=== PATIENT | female | born 1940 | race Caucasian/White ===

== ENCOUNTER 2017-05-05 04:36 | Inpatient (IN) | payer MEDICARE ==
[2017-05-05] MEDS ORDERED: MORPHINE SULFATE 10 MG/ML INJ IV ONE ×2 (04:54→05:46)
[2017-05-05] MEDS ORDERED: ONDANSETRON HCL INJ/PF 4 MG/2 ML SDV IV ONE (04:54)
--- NOTE | 2017-05-05 04:56 | ER Document Report ---
ED Medical Screen (RME) - General Stated Complaint: BACK/FLANK PAIN Time Seen by Provider: 05/05/17 04:49 Notes: 76-year-old female, comes by EMS for chief complaint of mid upper abdominal pain and pain radiating to her back. She reports nausea, reports sharp pain, denies vomiting, fever, chest pain, shortness of breath. Denies any cardiovascular history. Denies any abdominal surgeries. She does have a history of kidney stones. Also has a history of diabetes and GERD. Symptoms started suddenly at 10 PM and have not resolved. Normal nonbloody bowel movement earlier today. Physical Exam - Abdominal Tenderness: Tender - Tenderness over the upper abdomen generally down to the mid abdomen, nonspecific, no rigidity - Back Back: No: Tender, CVA tenderness Course - Re-evaluation Re-evalutation: Patient appears only very mildly uncomfortable, she is in no distress, vital signs stable, tender over mid to upper abdomen generally, workup pending.
[2017-05-05 05:10] LABS: ABSOLUTE EOSINOPHILS # (AUTO) 0.1 10^3/uL (0.0-0.6); ABSOLUTE LYMPHOCYTES (AUTO) 0.7 10^3/uL (0.5-4.7); ABSOLUTE MONOCYTES (AUTO) 0.5 10^3/uL (0.1-1.4); ABSOLUTE NEUT (AUTO) 6.9 10^3/uL (1.7-8.2); BASOPHILS % (AUTO) 0.2 % (0-2); EOSINOPHILS % (AUTO) 1.3 % (0-6); HEMATOCRIT 37.1 % (36.0-47.0); HEMOGLOBIN 12.6 g/dL (12.0-15.5); HGB HCT DIFFERENCE 0.7; MEAN CORPUSCULAR HEMOGLOBIN 31.9 pg (27.0-33.4); MEAN CORPUSCULAR HGB CONC 33.8 g/dL (32.0-36.0); MEAN CORPUSCULAR VOLUME 94 fl (80-97); MONOCYTES % (AUTO) 5.8 % (3-13); RED BLOOD COUNT 3.94 10^6/uL (3.72-5.28); RED CELL DISTRIBUTION WIDTH 12.9 % (11.5-14.0); SEGMENTED NEUTROPHILS % (AUTO) 83.7 % (42-78); WHITE BLOOD COUNT 8.3 10^3/uL (4.0-10.5)
[2017-05-05 05:17] LABS: ALANINE AMINOTRANSFERASE 147 U/L (9-52); ALBUMIN 3.5 g/dL (3.5-5.0); ALKALINE PHOSPHATASE 76 U/L (38-126); ANION GAP 10 (5-19); ASPARTATE AMINO TRANSFERASE 219 U/L (14-36); BILIRUBIN,DIRECT 1.4 mg/dL (0.0-0.4); BILIRUBIN,TOTAL 1.7 mg/dL (0.2-1.3); BLOOD UREA NITROGEN 20 mg/dL (7-20); CALCIUM 8.8 mg/dL (8.4-10.2); CARBON DIOXIDE 25 mmol/L (22-30); CHLORIDE 106 mmol/L (98-107); CREATININE RESULT 0.59 mg/dL (0.52-1.25); GLUCOSE 279 mg/dL (75-110); POTASSIUM 4.1 mmol/L (3.6-5.0); SODIUM 141.1 mmol/L (137-145); TOTAL PROTEIN 5.8 g/dL (6.3-8.2)
[2017-05-05 05:25] LABS: LIPASE 2851.8 U/L (23-300)
[2017-05-05 05:39] LABS: APPEARANCE,URINE SLIGHTLY-CLOUDY; BILIRUBIN,URINE NEGATIVE (NEGATIVE); GLUCOSE, URINE >=500 mg/dL (NEGATIVE); KETONES,URINE NEGATIVE (NEGATIVE); LEUKOCYTE ESTERASE,URINE TRACE (NEGATIVE); NITRITE,URINE NEGATIVE (NEGATIVE); PROTEIN,URINE NEGATIVE (NEGATIVE)
[2017-05-05] MEDS ORDERED: NORMAL SALINE 1000 ML 1,000 ML IV ONE ×2 (05:46→07:31)
--- NOTE | 2017-05-05 06:32 | RADIOLOGY REPORT (SQ) ---
EXAM DESCRIPTION: CT ABD/PELVIS WITH IV ONLY COMPLETED DATE/TIME: 05/05/2017 5:56 am REASON FOR STUDY: mid/upper abd pain, flank pain COMPARISON: None. TECHNIQUE: CT scan of the abdomen and pelvis performed using helical scanning technique with dynamic intravenous contrast injection. No oral contrast. Images reviewed with lung, soft tissue, and bone windows. Reconstructed coronal and sagittal MPR images reviewed. Delayed images for evaluation of the urinary system also acquired. All images stored on PACS. All CT scanners at this facility use dose modulation, iterative reconstruction, and/or weight based d osing when appropriate to reduce radiation dose to as low as reasonably achievable (ALARA). [facility]: Dose Right [facility]: CareDose [facility]: Dose Right [facility]: Teradose 4D [facility]: Crispify CONTRAST TYPE AND DOSE: contrast/concentration: Isovue 370.00 mg/ml; Total Contrast Delivered: 100.0 ml; Total Saline Delivered: 35.0 ml RENAL FUNCTION: Creatinine 0.6 RADIATION DOSE: Up-to-date CT equipment and radiation dose reduction techniques were employed. CTDIv ol: 16.8 - 16.9 mGy. DLP: 1647 mGy-cm.. LIMITATIONS: None. FINDINGS: LOWER CHEST: No significant findings. No nodules or infiltrates. LIVER: Normal size. No masses. No dilated ducts. Mild hepatic steatosis. SPLEEN: Normal size. No focal lesions. Splenule. PANCREAS: No masses. No significant calcifications. No adjacent inflammation or peripancreatic fluid collections. Pancreatic duct not dilated. GALLBLADDER: No identified stones by CT criteria. No inflammatory changes to suggest cholecystitis. ADRENAL GLANDS: No significant masses or asymmetry. RIGHT KIDNEY AND URETER: No solid masses. No significant calcifications. No hydronephrosis or hyd roureter. LEFT KIDNEY AND URETER: No solid masses. No significant calcifications. No hydronephrosis or hydr oureter. AORTA AND VESSELS: No aneurysm. No dissection. Renal arteries, SMA, celiac without stenosis. Atheros clerosis. RETROPERITONEUM: No retroperitoneal adenopathy, hemorrhage or masses. BOWEL AND PERITONEAL CAVITY: No masses or inflammatory changes. No free fluid or peritoneal masses. APPENDIX: Surgically absent. PELVIS: No mass. No free fluid. Normal bladder. Surgically absent uterus. ABDOMINAL WALL: No masses. No hernias. BONES: Mild lower lumbar spondylosis. Mild disc desiccation. OTHER: No other significant finding. IMPRESSION: No acute findings. Mild hepatic steatosis. TECHNICAL DOCUMENTATION: JOB ID: [id number] Quality ID # [id number]: Final reports with documentation of one or more dose reduction techniques (e.g., Au tomated exposure control, adjustment of the mA and/or kV according to patient size, use of iterative reconstruction technique) 2010 [employer]- All Rights Reserved
[2017-05-05] MEDS ORDERED: FAMOTIDINE INJ/PF 20 MG/2 ML SDV IV ONE (07:32)
--- NOTE | 2017-05-05 07:44 | RADIOLOGY REPORT (SQ) ---
EXAM DESCRIPTION: U/S ABDOMEN LIMITED W/O DOP COMPLETED DATE/TIME: 05/05/2017 7:32 am REASON FOR STUDY: ruq pain pancreatitis COMPARISON: None. TECHNIQUE: Dynamic and static grayscale images acquired of the abdomen and recorded on PACS. Additio nal selected color Doppler and spectral images recorded. LIMITATIONS: None. FINDINGS: PANCREAS: No masses. Visualized pancreatic duct normal caliber. Obscured tail. LIVER: No masses. Moderate hepatic steatosis with areas of focal sparing adjacent to the gallbladder . LIVER VASCULATURE: Normal directional flow of the main portal vein and hepatic veins. GALLBLADDER: No stones. Normal wall thickness. No pericholecystic fluid. ULTRASOUND-DETECTED TREVINO'S SIGN: Negative. INTRAHEPATIC DUCTS AND COMMON DUCT: 0.7 cm diameter CBD and intrahepatic ducts normal caliber. No samantha ling defects. INFERIOR VENA CAVA: Normal flow. AORTA: No aneurysm. RIGHT KIDNEY: Normal size. Normal echogenicity. No solid or suspicious masses. No hydronephrosis. No calcifications. PERITONEAL AND RIGHT PLEURAL SPACE: No ascites or effusions. OTHER: No other significant findings. IMPRESSION: No acute findings. Moderate hepatic steatosis. TECHNICAL DOCUMENTATION: JOB ID: [id number] [employer]- All Rights Reserved
--- NOTE | 2017-05-05 08:07 | ER Document Report ---
ED General - General Chief Complaint: Back Pain Stated Complaint: BACK/FLANK PAIN Time Seen by Provider: 05/05/17 04:49 - HPI Patient complains to provider of: Back pain epigastric pain Notes: Patient coming in for less than 24 hours of epigastric pain going into her back. Patient states last night had chicken and pasta for dinner however around 10:00 at night started having epigastric and back pain. Patient states no history of similar pain. Denies any fevers or chills. States slight nausea no vomiting no diarrhea. Patient does have a history of hypertension and diabetes. Patient is on glipizide patient also has a history of chronic meloxicam use. Patient states PCP is Dr. Carrillo unknown last name. Patient upon my evaluation resting comfortably however stating she still having 4 out of 5 pain. Patient has been given morphine for her pain states relief with morphine. Denies any changes in medications patient states history of appendectomy and hysterectomy - Related Data Allergies/Adverse Reactions: latex Allergy (Verified 05/05/17 05:17) Penicillins Allergy (Verified 05/05/17 05:17) Past Medical History - Social History Smoking Status: Unknown if Ever Smoked Chew tobacco use (# tins/day): No Frequency of alcohol use: None Drug Abuse: None Family History: Reviewed & Not Pertinent Review of Systems - Review of Systems Constitutional: No symptoms reported EENT: No symptoms reported Cardiovascular: No symptoms reported Respiratory: No symptoms reported Gastrointestinal: Abdominal pain Genitourinary: No symptoms reported Female Genitourinary: No symptoms reported Musculoskeletal: No symptoms reported Skin: No symptoms reported Hematologic/Lymphatic: No symptoms reported Neurological/Psychological: No symptoms reported -: Yes All other systems reviewed and negative Physical Exam - Vital signs Vitals: Temp Pulse Resp BP Pulse Ox 98.1 F 84 16 149/53 H 96 05/05/17 04:47 05/05/17 04:47 05/05/17 04:47 05/05/17 04:47 05/05/17 04:47 Interpretation: Normal - General General appearance: Appears well, Alert - HEENT Head: Normocephalic, Atraumatic Eyes: Normal Pupils: PERRL - Respiratory Respiratory status: No respiratory distress Chest status: Nontender Breath sounds: Normal Chest palpation: Normal - Cardiovascular Rhythm: Regular Heart sounds: Normal auscultation Murmur: No - Abdominal Inspection: Normal Distension: No distension Bowel sounds: Normal Tenderness: Tender Organomegaly: No organomegaly Notes: Mild to moderate diffuse tenderness in the epigastric right upper quadrant with upper quadrant region. - Back Back: Normal, Nontender - Extremities General upper extremity: Normal inspection, Nontender, Normal color, Normal ROM , Normal temperature General lower extremity: Normal inspection, Nontender, Normal color, Normal ROM , Normal temperature, Normal weight bearing. No: Gary's sign - Neurological Neuro grossly intact: Yes Cognition: Normal Orientation: AAOx4 [place] Coma Scale Eye Opening: Spontaneous Dm Coma Scale Verbal: Oriented Dm Coma Scale Motor: Obeys Commands [place] Coma Scale Total: 15 Speech: Normal Motor strength normal: LUE, RUE, LLE, RLE Sensory: Normal - Psychological Associated symptoms: Normal affect, Normal mood - Skin Skin Temperature: Warm Skin Moisture: Dry Skin Color: Normal Course - Re-evaluation Re-evalutation: 05/05/17 08:[address] Chavez request Bharti admit. Called Bharti. will call back 05/05/17 08:06 Laboratory studies consistent with pancreatitis. CT scan although does not show any acute inflammation of the pancreas. Patient underwent ultrasound due to elevated bilirubins no signs of biliary obstruction at this time no signs of acute cholelithiasis. Upon reevaluation patient states still having pain. Will order LDH and triglycerides did patient continued to have pain will admit the patient to the hospitalist service. 05/05/17 08:15 Discussed with hospitalist will admit at this time - Vital Signs Vital signs: Temp Pulse Resp BP Pulse Ox 98.1 F 84 16 149/53 H 96 05/05/17 04:47 05/05/17 04:47 05/05/17 04:47 05/05/17 04:47 05/05/17 04:47 - Laboratory Result Diagrams: 05/05/17 04:52 05/05/17 04:52 Laboratory results interpreted by me: 05/05/17 05/05/17 05/05/17 04:52 04:52 05:12 Plt Count 145 L Seg Neutrophils % 83.7 H Lymphocytes % 9.0 L Glucose 279 H Total Bilirubin 1.7 H Direct Bilirubin 1.4 H AST 219 H ALT 147 H Total Protein 5.8 L Lipase 2851.8 H Urine Glucose (UA) >=500 H Urine Urobilinogen 2.0 H Ur Leukocyte Esterase TRACE H Discharge - Discharge Clinical Impression: Pancreatitis Qualifiers: Chronicity: acute Pancreatitis type: unspecified pancreatitis type Acute pancreatitis complication: unspecified Qualified Code(s): K85.90 - Acute pancreatitis without necrosis or infection, unspecified Condition: Good Disposition: ADMITTED OBSERVATION Admitting Provider: Hospitalist - [facility] Unit Admitted: Medical Floor
[2017-05-05] MEDS ORDERED: RINGERS SOLUTION,LACTATED 1,000 ML IV PRN (08:18)
[2017-05-05] MEDS ORDERED: DEXTROSE 40% GEL 15 GM TUBE PO PRN ×2 (08:24)
[2017-05-05] MEDS ORDERED: GLUCAGON,HUMAN RECOMB 1 MG INJ IM PRN (08:24)
[2017-05-05] MEDS ORDERED: DEXTROSE 50%-WATER 25 GM/50 ML DISP.SYRIN IV PRN ×2 (08:24)
[2017-05-05] MEDS: ONDANSETRON HCL INJ/PF 4 MG/2 ML SDV IV PRN ×3 (08:49→20:25)
[2017-05-05] MEDS: MORPHINE SULFATE 10 MG/ML INJ IV PRN ×3 (08:50→18:50)
[2017-05-05] MEDS ORDERED: PANTOPRAZOLE SODIUM 40 MG VIAL IV SCH (10:00)
[2017-05-05] MEDS: PANTOPRAZOLE SODIUM 40 MG VIAL IV SCH ×2 (10:12→22:57)
[2017-05-05] MEDS: INSULIN GLARGINE,HUM.REC.ANLOG 300 UNIT/3 ML INSULN.PEN SUBCUT SCH (14:34)
--- NOTE | 2017-05-05 15:53 | PDOC H&P ---
History of Present Illness Admission Date/PCP: 05/05/17 08:16 Patient complains of: Stomach pain since last night History of Present Illness: KIM CROSS is a 76 year old female who presented to emergency room complaining of stomach pain in band like distribution since last night. Patient states that she was watching TV when began experiencing pain. She called the emergency room around 2 AM for advice since pain has been getting progressively worse. Patient also complains of nausea. She denies a similar episode. Patient does carry a history of diabetes and take oral medications. She denies smoking. She denies history of cholecystectomy. During evaluation in emergency room lipase was elevated and our service was contacted for further management. Past Medical History Cardiac Medical History: Reports: Hypertension Pulmonary Medical History: Reports: None EENT Medical History: Reports: None Endocrine Medical History: Reports: Diabetes Mellitus Type 2 Renal/ Medical History: Reports: None Malignancy Medical History: Reports: Breast Cancer, Skin Cancer GI Medical History: Reports: None Musculoskeltal Medical History: Reports: None Psychiatric Medical History: Reports: None Hematology: Reports: None Past Surgical History Past Surgical History: Reports: Other - Breast lumpectomy Social History Information Source: Patient Lives with: Spouse/Significant other Smoking Status: Never Smoker Drugs: None Hx Prescription Drug Abuse: No - Advance Directive Resuscitation Status: Full Code Family History Family History: Malignancy Parental Family History Reviewed: Yes Children Family History Reviewed: Yes Sibling(s) Family History Reviewed.: Yes Medication/Allergy Home Medications: Albuterol Sulfate [Proair HFA] 2 puff IH Q4HP PRN 05/05/17 Aspirin [Aspirin EC] 81 mg PO DAILY 05/05/17 Glipizide [Glocotrol 5 Mg Tablet] 5 mg PO BIDBS 05/05/17 Insulin Glargine,Hum.rec.anlog [Lantus Insulin 100 Unit/1 ml 10 ml] 90 unit SUBCUT QAM 05/05/17 Insulin Lispro [Humalog Insulin 100 Unit/1 ml 3 ml Vial] 10 unit SUBCUT QAM 02/11 Meloxicam [Mobic] 7.5 mg PO DAILY 05/05/17 Omeprazole 40 mg PO QAM 05/05/17 Propranolol HCl [Inderal La] 160 mg PO DAILY 05/05/17 Ranitidine HCl [Zantac 150 mg Tablet] 150 mg PO BID 05/05/17 Simvastatin [Zocor 20 mg Tablet] 20 mg PO QHS 05/05/17 Allergies/Adverse Reactions: latex Allergy (Verified 05/05/17 05:17) Penicillins Allergy (Verified 05/05/17 05:17) Review of Systems Constitutional: ABSENT: fever(s), headache(s), weakness Eyes: ABSENT: visual disturbances Ears: ABSENT: hearing changes Cardiovascular: ABSENT: chest pain, dyspnea on exertion, edema, orthropnea Respiratory: ABSENT: cough, dyspnea Gastrointestinal: PRESENT: abdominal pain, nausea, vomiting Genitourinary: ABSENT: dysuria, hematuria Musculoskeletal: ABSENT: deformity, joint swelling Neurological: ABSENT: abnormal gait, memory loss, numbness Psychiatric: ABSENT: anxiety, depression Physical Exam Vital Signs: Temp Pulse Resp BP Pulse Ox 98.6 F 118 H 17 121/46 L 98 05/05/17 12:11 05/05/17 12:11 05/05/17 12:11 05/05/17 12:11 05/05/17 12:11 Intake & Output 05/04/17 05/05/17 05/06/17 06:59 06:59 06:59 Weight 81.647 kg General appearance: PRESENT: no acute distress, cooperative, obese Head exam: PRESENT: atraumatic, normocephalic Eye exam: PRESENT: conjunctiva pink, EOMI, PERRLA Ear exam: PRESENT: normal external ear exam Mouth exam: PRESENT: moist, neck supple Neck exam: PRESENT: full ROM. ABSENT: JVD, tenderness, thyromegaly Respiratory exam: PRESENT: clear to auscultation debbie. ABSENT: chest wall tenderness Cardiovascular exam: PRESENT: RRR. ABSENT: diastolic murmur, systolic murmur Vascular exam: PRESENT: normal capillary refill GI/Abdominal exam: PRESENT: distended, guarding, normal bowel sounds, tenderness - Epigastric Rectal exam: PRESENT: deferred Extremities exam: PRESENT: full ROM. ABSENT: joint swelling, pedal edema Musculoskeletal exam: PRESENT: ambulatory Neurological exam: PRESENT: alert, oriented to person, oriented to place, oriented to time Psychiatric exam: PRESENT: appropriate affect, normal mood Skin exam: PRESENT: intact, normal color Results Impressions: Abdomen/Pelvis CT 05/05/17 04:54 IMPRESSION: No acute findings. Mild hepatic steatosis. Abdomen Ultrasound 05/05/17 06:56 IMPRESSION: No acute findings. Moderate hepatic steatosis. Assessment & Plan - Diagnosis (1) Diabetes mellitus Qualifiers: Diabetes mellitus type: type 2 Diabetes mellitus complication status: without complication Is this a current diagnosis for this admission?: Yes Plan: Will continue Lantus and will place on lispro insulin sliding scale. Patient will be covered every 6 hours. Patient will be placed on D5 water to prevent hypoglycemic episodes. (2) HTN (hypertension) Is this a current diagnosis for this admission?: Yes Plan: She is n.p.o. we will request hydralazine IV with administration parameters for systolic blood pressure higher equal to 160 or diastolic blood pressure higher or equal to 110. (3) Pancreatitis Qualifiers: Chronicity: acute Pancreatitis type: unspecified pancreatitis type Acute pancreatitis complication: unspecified Qualified Code(s): K85.90 - Acute pancreatitis without necrosis or infection, unspecified Is this a current diagnosis for this admission?: Yes Plan: Patient presents with acute episode and of uncertain etiology. She will be placed n.p.o. Will request Protonix IV. Patient will also be evaluated through HIDA scan. Will provide pain management. - Time Time Spent: 50 to 70 Minutes Medications reviewed and adjusted accordingly: Yes Anticipated discharge: Home Within: within 72 hours - Inpatient Certification Based on my medical assessment, after consideration of the patient's comorbidities, presenting symptoms, or acuity I expect that the services needed warrant INPATIENT care.: Yes I certify that my determination is in accordance with my understanding of Medicare's requirements for reasonable and necessary INPATIENT services [42 CFR 412.3e].: Yes Medical Necessity: Need For IV Fluids, Need for Pain Control
[2017-05-05] MEDS ORDERED: DEXTROSE 5%-WATER 1000 ML 1,000 ML IV PRN (15:57)
[2017-05-05] MEDS ORDERED: ENOXAPARIN SODIUM INJ 40 MG/0.4 ML DISP.SYRIN SUBCUT ONE (17:00)
--- NOTE | 2017-05-05 17:56 | RADIOLOGY REPORT (SQ) ---
EXAM DESCRIPTION: NM HIDA SCAN COMPLETED DATE/TIME: 05/05/2017 5:28 pm REASON FOR STUDY: acute pancreatitis COMPARISON: Abdominal ultrasound 05/05/2017, CT abdomen pelvis 05/05/2017 RADIONUCLIDE AND DOSE: DOSAGE RADIONUCLIDE: 5.2 millicuries Tc99m Mebrofenin. DOSAGE MORPHINE: Not required. The route of agent administration: Intravenous TECHNIQUE: Serial imaging right upper quadrant up to 60 minutes following injection of radionuclide. Delayed 4 hour images were also obtained LIMITATIONS: None. FINDINGS: There is homogeneous liver uptake which persists throughout the 60 minutes initially. 4 hour delayed images demonstrate persistent liver uptake. These findings either represent profound hepatocellular dysfunction, or a high-grade biliary outflow obstruction possibly with distal common bile duct stone. These findings were discussed with Dr. Hay, and follow-up MRCP for evaluation of the distal comm on duct for obstruction will be performed IMPRESSION: Persistent liver uptake at 0400 hours without biliary excretion. This is a either due t o profound hepatocellular dysfunction/acute hepatitis or could be related to high-grade biliary outfl ow obstruction due to distal ductal stone or stricture. Findings were discussed with the patient's a ttending physician. MRCP is recommended for followup. TECHNICAL DOCUMENTATION: JOB ID: [id number] [employer]- All Rights Reserved
[2017-05-05] MEDS: LORAZEPAM INJ 2 MG/1 ML VIAL IV PRN (18:08)
[2017-05-05] MEDS ORDERED: PROMETHAZINE HCL 25 MG SUPP.RECT PR ONE (23:00)
[2017-05-06] MEDS ORDERED: METRONIDAZOLE 500 MG TABLET PO ONE (00:15)
[2017-05-06] MEDS ORDERED: LEVOFLOXACIN 750 MG/D5W RTU 750 MG/150 ML RTUPB IV ONE (01:00)
[2017-05-06] MEDS: ACETAMINOPHEN 325 MG TABLET PO PRN ×3 (01:55→19:01)
[2017-05-06] MEDS: ONDANSETRON HCL INJ/PF 4 MG/2 ML SDV IV PRN ×2 (01:56→07:58)
--- NOTE | 2017-05-06 02:09 | RADIOLOGY REPORT (SQ) ---
EXAM DESCRIPTION: MRI ABDOMEN WITHOUT COMPLETED DATE/TIME: 05/05/2017 8:23 pm REASON FOR STUDY: acute pancretitis COMPARISON: NM, US, CT, 05/05/2017. TECHNIQUE: Noncontrast MRCP. Source and MIP images reviewed. LIMITATIONS: None. FINDINGS: GALLBLADDER: Normal. Mild nonspecific non tensile concavity at the fundal wall. INTRAHEPATIC DUCTS: Nondilated. EXTRAHEPATIC DUCTS: Common duct is normal caliber. No dilatation of the pancreatic duct. No ductal filling defects noted. PANCREAS: Generally homogeneous, no gross mass or significant signal alteration. No surrounding infl ammatory changes or fluid. Pancreatic duct is normal. LIVER, SPLEEN, KIDNEYS, ADRENALS: Mild bilateral perinephric fat stranding. VESSELS: No evidence of aneurysm. Grossly appropriate flow voids in the major vascular structures. LUNG BASES: Grossly clear. OTHER: No other significant finding. IMPRESSION: NORMAL HEPATOBILIARY SYSTEM. NO STONES OR COMMON DUCT ABNORMALITIES. TECHNICAL DOCUMENTATION: JOB ID: [id number] [employer]- All Rights Reserved CONTRAST TYPE AND DOSE: None.
[2017-05-06] MEDS ORDERED: METRONIDAZOLE 500 MG TABLET PO SCH (06:00)
--- NOTE | 2017-05-06 08:09 | EKG REPORT ---
SEVERITY:- BORDERLINE ECG - SINUS TACHYCARDIA BORDERLINE T WAVE ABNORMALITIES : Confirmed by: Levar Abreu MD 06-May-2017 08:09:00
[2017-05-06] MEDS: MORPHINE SULFATE 10 MG/ML INJ IV PRN (08:58)
[2017-05-06] MEDS ORDERED: MORPHINE SULFATE 10 MG/ML INJ IV PRN (09:48)
[2017-05-06] MEDS: ENOXAPARIN SODIUM INJ 40 MG/0.4 ML DISP.SYRIN SUBCUT SCH (11:02)
[2017-05-06] MEDS: ERTAPENEM SODIUM 1 GM in NORMAL SALINE 50 ML IV SCH (11:03)
[2017-05-06] MEDS: PANTOPRAZOLE SODIUM 40 MG VIAL IV SCH ×2 (11:20→21:56)
[2017-05-06] MEDS: LORAZEPAM INJ 2 MG/1 ML VIAL IV PRN ×2 (11:22→19:34)
[2017-05-06] MEDS: INSULIN GLARGINE,HUM.REC.ANLOG 300 UNIT/3 ML INSULN.PEN SUBCUT SCH (12:33)
--- NOTE | 2017-05-06 13:59 | PDOC PROGRESS REPORT ---
Subjective Progress Note for:: 05/06/17 Subjective:: Patient reports feeling hungry and the pain is better. Nurse stated the patient was able to sleep the whole night and only required to be medicated around 5 AM. Silk Screen Repairer reported that patient had fever last night and patient was placed on IV antibiotic Physical Exam Vital Signs: Temp Pulse Resp BP Pulse Ox 98.1 F 104 H 12 135/51 H 100 05/06/17 04:36 05/06/17 04:36 05/06/17 04:36 05/06/17 04:36 05/06/17 04:36 Intake & Output 05/05/17 05/06/17 05/07/17 06:59 06:59 06:59 Intake Total 25 Balance 25 Weight 81.647 kg General appearance: PRESENT: no acute distress, cooperative, obese Head exam: PRESENT: atraumatic, normocephalic Eye exam: PRESENT: EOMI, PERRLA Ear exam: PRESENT: normal external ear exam Mouth exam: PRESENT: moist, neck supple Neck exam: PRESENT: full ROM. ABSENT: JVD, lymphadenopathy, tenderness Respiratory exam: PRESENT: clear to auscultation debbie Cardiovascular exam: PRESENT: RRR. ABSENT: diastolic murmur, gallop, systolic murmur Vascular exam: PRESENT: normal capillary refill GI/Abdominal exam: PRESENT: normal bowel sounds, soft, tenderness - Mild tenderness in epigastric area Extremities exam: ABSENT: joint swelling, pedal edema Musculoskeletal exam: PRESENT: full ROM Neurological exam: PRESENT: alert, oriented to person, oriented to place, oriented to time Psychiatric exam: PRESENT: appropriate affect, normal mood Results Laboratory Results: 05/06/17 05:40 Lipase 598.4 H Impressions: Abdomen MRI 05/05/17 00:00 IMPRESSION: NORMAL HEPATOBILIARY SYSTEM. NO STONES OR COMMON DUCT ABNORMALITIES. Hepatobiliary Scan Nuclear Medicine 05/05/17 00:00 IMPRESSION: Persistent liver uptake at 0400 hours without biliary excretion. This is a either due to profound hepatocellular dysfunction/acute hepatitis or could be related to high-grade biliary outflow obstruction due to distal ductal stone or stricture. Findings were discussed with the patient's attending physician. MRCP is recommended for followup. Abdomen/Pelvis CT 05/05/17 04:54 IMPRESSION: No acute findings. Mild hepatic steatosis. Abdomen Ultrasound 05/05/17 06:56 IMPRESSION: No acute findings. Moderate hepatic steatosis. Assessment & Plan - Diagnosis (1) Diabetes mellitus Qualifiers: Diabetes mellitus type: type 2 Diabetes mellitus complication status: without complication Is this a current diagnosis for this admission?: Yes Plan: Continue Lantus and lispro. Discontinue D5 water since patient will be started on clear liquids (2) HTN (hypertension) Qualifiers: Hypertension type: essential hypertension Qualified Code(s): I10 - Essential (primary) hypertension Is this a current diagnosis for this admission?: Yes Plan: Exacerbated by pain. Continue hydralazine IV (3) Pancreatitis Qualifiers: Chronicity: acute Pancreatitis type: unspecified pancreatitis type Acute pancreatitis complication: unspecified Qualified Code(s): K85.90 - Acute pancreatitis without necrosis or infection, unspecified Is this a current diagnosis for this admission?: Yes Plan: Improving. To advance to clear liquids since is very hungry. Continue with pain management. Pancreatitis may be culprit of fever. Will change to imipenem and follow-up cultures. MRCP normal. - Time Time Spent with patient: 15-24 minutes Medications reviewed and adjusted accordingly: Yes Anticipated discharge: Home Within: within 72 hours - Inpatient Certification Based on my medical assessment, after consideration of the patient's comorbidities, presenting symptoms, or acuity I expect that the services needed warrant INPATIENT care.: Yes I certify that my determination is in accordance with my understanding of Medicare's requirements for reasonable and necessary INPATIENT services [42 CFR 412.3e].: Yes Medical Necessity: Need For IV Fluids, Need for Pain Control, Need for IV Antibiotics
[2017-05-06 22:33] LABS: HEMATOCRIT 31.5 % (36.0-47.0); HEMOGLOBIN 10.8 g/dL (12.0-15.5); HGB HCT DIFFERENCE 0.9; MEAN CORPUSCULAR HEMOGLOBIN 32.4 pg (27.0-33.4); MEAN CORPUSCULAR HGB CONC 34.4 g/dL (32.0-36.0); MEAN CORPUSCULAR VOLUME 94 fl (80-97); RED BLOOD COUNT 3.35 10^6/uL (3.72-5.28); RED CELL DISTRIBUTION WIDTH 13.1 % (11.5-14.0); WHITE BLOOD COUNT 6.6 10^3/uL (4.0-10.5)
[2017-05-06 22:54] LABS: BASOPHILS % (MANUAL) 0 % (0-2); EOSINOPHILS % (MANUAL) 1 % (0-6); LYMPHOCYTES % (MANUAL) 3 % (13-45); TOTAL CELLS COUNTED 100
[2017-05-06 22:56] LABS: POIKILOCYTOSIS SLIGHT; POLYCHROMASIA SLIGHT
[2017-05-06 22:57] LABS: HYPOCHROMASIA SLIGHT; OVALOCYTES SLIGHT
[2017-05-07] MEDS: ONDANSETRON HCL INJ/PF 4 MG/2 ML SDV IV PRN ×2 (02:33→17:26)
[2017-05-07 06:55] LABS: ALANINE AMINOTRANSFERASE 255 U/L (9-52); ALKALINE PHOSPHATASE 101 U/L (38-126); ANION GAP 9 (5-19); ASPARTATE AMINO TRANSFERASE 170 U/L (14-36); BILIRUBIN,DIRECT 3.6 mg/dL (0.0-0.4); BILIRUBIN,TOTAL 4.2 mg/dL (0.2-1.3); BLOOD UREA NITROGEN 12 mg/dL (7-20); CALCIUM 8.7 mg/dL (8.4-10.2); CARBON DIOXIDE 25 mmol/L (22-30); CHLORIDE 100 mmol/L (98-107); CREATININE RESULT 0.56 mg/dL (0.52-1.25); GLUCOSE 303 mg/dL (75-110); POTASSIUM 4.3 mmol/L (3.6-5.0); SODIUM 133.8 mmol/L (137-145); TOTAL PROTEIN 5.4 g/dL (6.3-8.2)
[2017-05-07] MEDS ORDERED: OXYCODONE HCL IR 5 MG TABLET PO PRN (09:46)
[2017-05-07] MEDS: ENOXAPARIN SODIUM INJ 40 MG/0.4 ML DISP.SYRIN SUBCUT SCH (11:03)
[2017-05-07] MEDS: INSULIN GLARGINE,HUM.REC.ANLOG 300 UNIT/3 ML INSULN.PEN SUBCUT SCH (11:04)
[2017-05-07] MEDS: PANTOPRAZOLE SODIUM 40 MG VIAL IV SCH (11:04)
[2017-05-07] MEDS: ERTAPENEM SODIUM 1 GM in NORMAL SALINE 50 ML IV SCH (11:09)
[2017-05-07] MEDS: ACETAMINOPHEN 325 MG TABLET PO PRN ×2 (11:09→22:20)
[2017-05-07] MEDS: INSULIN LISPRO 100 UNIT/ML 3 ML VIAL SUBCUT PRN ×2 (13:46→22:51)
[2017-05-07] MEDS: INSULIN LISPRO 100 UNIT/ML 3 ML VIAL SUBCUT SCH (17:32)
[2017-05-07] MEDS: PROPRANOLOL HCL 40 MG TABLET PO SCH (18:21)
[2017-05-07] MEDS: LORAZEPAM INJ 2 MG/1 ML VIAL IV PRN (22:25)
[2017-05-07] MEDS: IPRATROPIUM/ALBUTEROL 0.5-2.5 MG/3 ML AMPUL NEB PRN (23:07)
[2017-05-08 04:56] LABS: ABSOLUTE EOSINOPHILS # (AUTO) 0.1 10^3/uL (0.0-0.6); ABSOLUTE LYMPHOCYTES (AUTO) 0.4 10^3/uL (0.5-4.7); ABSOLUTE NEUT (AUTO) 5.7 10^3/uL (1.7-8.2); BASOPHILS % (AUTO) 0.3 % (0-2); HEMATOCRIT 33.8 % (36.0-47.0); HEMOGLOBIN 11.6 g/dL (12.0-15.5); LYMPHOCYTES % (AUTO) 5.5 % (13-45); MEAN CORPUSCULAR HEMOGLOBIN 31.8 pg (27.0-33.4); MEAN CORPUSCULAR HGB CONC 34.4 g/dL (32.0-36.0); MEAN CORPUSCULAR VOLUME 93 fl (80-97); RED BLOOD COUNT 3.65 10^6/uL (3.72-5.28); RED CELL DISTRIBUTION WIDTH 12.8 % (11.5-14.0); SEGMENTED NEUTROPHILS % (AUTO) 79.2 % (42-78); WHITE BLOOD COUNT 7.3 10^3/uL (4.0-10.5)
[2017-05-08 05:13] LABS: ALANINE AMINOTRANSFERASE 274 U/L (9-52); ALBUMIN 3.5 g/dL (3.5-5.0); ALKALINE PHOSPHATASE 141 U/L (38-126); ANION GAP 10 (5-19); ASPARTATE AMINO TRANSFERASE 168 U/L (14-36); BILIRUBIN,DIRECT 3.4 mg/dL (0.0-0.4); BLOOD UREA NITROGEN 11 mg/dL (7-20); CALCIUM 9.1 mg/dL (8.4-10.2); CARBON DIOXIDE 33 mmol/L (22-30); CHLORIDE 98 mmol/L (98-107); CREATININE RESULT 0.61 mg/dL (0.52-1.25); GLUCOSE 191 mg/dL (75-110); LIPASE 85.4 U/L (23-300); MAGNESIUM 1.7 mg/dL (1.6-2.3); POTASSIUM 3.7 mmol/L (3.6-5.0); TOTAL PROTEIN 6.5 g/dL (6.3-8.2)
[2017-05-08] MEDS: PROPRANOLOL HCL 40 MG TABLET PO SCH (05:29)
[2017-05-08] MEDS: IPRATROPIUM/ALBUTEROL 0.5-2.5 MG/3 ML AMPUL NEB PRN ×2 (06:23→09:19)
[2017-05-08] MEDS: INSULIN LISPRO 100 UNIT/ML 3 ML VIAL SUBCUT SCH ×3 (08:14→18:28)
[2017-05-08] MEDS: LANSOPRAZOLE 30 MG TAB.RAP.DR PO SCH (08:28)
[2017-05-08] MEDS: INSULIN LISPRO 100 UNIT/ML 3 ML VIAL SUBCUT PRN ×4 (08:47→23:03)
[2017-05-08] MEDS ORDERED: METHYLPREDNISOLONE INJ 125 MG/2 ML SDV ONE (09:37)
[2017-05-08] MEDS ORDERED: ALBUTEROL SULFATE 0.042% NEB (1.25 MG/3 ML) AMPUL NEB PRN (09:47)
[2017-05-08] MEDS ORDERED: INSULIN GLARGINE,HUM.REC.ANLOG 300 UNIT/3 ML INSULN.PEN SUBCUT SCH (10:00)
[2017-05-08] MEDS ORDERED: METHYLPREDNISOLONE INJ 125 MG/2 ML SDV IV ONE (10:00)
--- NOTE | 2017-05-08 10:10 | PDOC PROGRESS REPORT ---
Subjective Progress Note for:: 05/08/17 Subjective:: Patient was admitted for acute pancreatitis on 05/05/2017. She had an abnormal HIDA scan followed by a normal MRI. This morning, when I went to go see the patient she appeared to be in some distress. This progressed over the next hour. She was ordered a stat nebulizer treatment. She seemed to improve. At this point time I think that she is having an exacerbation of asthma and not acute pulmonary edema although both are possibilities. I do not think that she is having venous thromboembolic disease. Stat chest x-ray is pending. The patient takes propranolol which could also be aggravating her asthma. In terms of her abdominal pain she states that she has no pain. She just is complaining of diffuse pain in her muscles all over the place. She also told me that she is breathing like she normally does. When asked about obstructive sleep apnea she told us that she does not wear CPAP machine. Physical Exam Vital Signs: Temp Pulse Resp BP Pulse Ox 99.6 F 116 H 28 H 157/66 H 92 05/08/17 07:15 05/08/17 09:17 05/08/17 09:17 05/08/17 07:15 05/08/17 09:17 Intake & Output 05/07/17 05/08/17 05/09/17 06:59 06:59 06:59 Intake Total 3723 3838 Output Total 1100 2195 Balance 2623 1643 Weight 92.7 kg Additional comments: The patient is noted to be an obese white female. She is in mild to moderate distress. She does have some paradoxical breathing. Her lungs are clear but she is noted to have some upper airway wheezing. Her mentation appears to be appropriate. Cranial nerves II through XII are intact and her facial appearance is normal. Her trachea is midline. Her cardiac exam demonstrates a regular rate and rhythm. She is tachycardic at 115. The abdomen is nondistended. Nontender. She does not have any guarding or rebound noted. There are no hernias or masses present. Patient's lower extremities are warm to touch. She does not have any pitting edema noted. Her skin is cool to touch with minimal livedo reticularis. Results Laboratory Results: 05/08/17 03:50 05/08/17 03:50 05/08/17 05/08/17 03:50 03:50 WBC 7.3 RBC 3.65 L Hgb 11.6 L Hct 33.8 L MCV 93 MCH 31.8 MCHC 34.4 RDW 12.8 Plt Count 110 L Seg Neutrophils % 79.2 H Lymphocytes % 5.5 L Monocytes % 14.0 H Eosinophils % 1.0 Basophils % 0.3 Absolute Neutrophils 5.7 Absolute Lymphocytes 0.4 L Absolute Monocytes 1.0 Absolute Eosinophils 0.1 Absolute Basophils 0.0 Sodium 141.0 Potassium 3.7 Chloride 98 Carbon Dioxide 33 H Anion Gap 10 BUN 11 Creatinine 0.61 Est GFR ( Amer) > 60 Est GFR (Non-Af Amer) > 60 Glucose 191 H Calcium 9.1 Magnesium 1.7 Total Bilirubin 4.0 H AST 168 H ALT 274 H Alkaline Phosphatase 141 H Total Protein 6.5 Albumin 3.5 Lipase 85.4 Impressions: Abdomen MRI 05/05/17 00:00 IMPRESSION: NORMAL HEPATOBILIARY SYSTEM. NO STONES OR COMMON DUCT ABNORMALITIES. Hepatobiliary Scan Nuclear Medicine 05/05/17 00:00 IMPRESSION: Persistent liver uptake at 0400 hours without biliary excretion. This is a either due to profound hepatocellular dysfunction/acute hepatitis or could be related to high-grade biliary outflow obstruction due to distal ductal stone or stricture. Findings were discussed with the patient's attending physician. MRCP is recommended for followup. Abdomen/Pelvis CT 05/05/17 04:54 IMPRESSION: No acute findings. Mild hepatic steatosis. Abdomen Ultrasound 05/05/17 06:56 IMPRESSION: No acute findings. Moderate hepatic steatosis. Assessment & Plan - Diagnosis (1) Diabetes mellitus Qualifiers: Diabetes mellitus type: type 2 Diabetes mellitus complication status: without complication Is this a current diagnosis for this admission?: Yes Plan: The patient is not eating. I have cut back on her Lantus. She may require readjustment secondary to the Solu-Medrol that was added today for respiratory distress. (2) HTN (hypertension) Qualifiers: Hypertension type: essential hypertension Qualified Code(s): I10 - Essential (primary) hypertension Is this a current diagnosis for this admission?: Yes Plan: Propranolol was discontinued because it is a nonselective beta-claudia and the patient appears to be having asthma with exacerbation. I will need to substitute a different agent. Patient will likely have beta-claudia withdrawal and I would elect for a beta 1 selective medication such as bisoprolol. (3) Pancreatitis Qualifiers: Chronicity: acute Pancreatitis type: unspecified pancreatitis type Acute pancreatitis complication: unspecified Qualified Code(s): K85.90 - Acute pancreatitis without necrosis or infection, unspecified Is this a current diagnosis for this admission?: Yes Plan: Currently, patient is on clears. We will make her n.p.o. for now until she improves regarding her respiratory situation. Do not think that the patient's respiratory distress is from anaphylaxis, but, I am going to stop the imipenem because I do not see an indication. (4) Transaminitis Is this a current diagnosis for this admission?: Yes Plan: Patient will need follow-up with gastroenterology. She is being evaluated for nonalcoholic fatty liver disease and nonalcoholic steatohepatitis. - Time Time Spent with patient: 35 or more minutes - Inpatient Certification Medical Necessity: Need Close Monitoring Due to Risk of Patient Decompensation - Patient is having evidence of respiratory distress. She is not stable for discharge at this time. If she worsens she will need to be transferred to the ICU., Need for Nebulizer Therapy and Monitoring of Response
--- NOTE | 2017-05-08 10:33 | RADIOLOGY REPORT (SQ) ---
EXAM DESCRIPTION: CHEST SINGLE VIEW COMPLETED DATE/TIME: 05/08/2017 10:14 am REASON FOR STUDY: Tachypnea COMPARISON: 05/05/2017 CT abdomen and pelvis. NUMBER OF VIEWS: One view. TECHNIQUE: Single frontal radiographic view of the chest acquired. LIMITATIONS: None. FINDINGS: LUNGS AND PLEURA: Interstitial appearance throughout the lungs. No abnormal gas collectio ns or focal consolidation. Correlation with CT from several days ago which includes the lung bases f ails to demonstrate any significant interstitial disease. Presumably, therefore, this is related to diffuse interstitial edema or infiltrate. Consider both cardiogenic and noncardiogenic causes for ed madhuri. MEDIASTINUM AND HILAR STRUCTURES: No masses. Contour normal. HEART AND VASCULAR STRUCTURES: Heart normal in size. Normal vasculature. BONES: No acute findings. HARDWARE: None in the chest. OTHER: No other significant finding. IMPRESSION: Interstitial pattern in the lungs suspicious for edema. TECHNICAL DOCUMENTATION: JOB ID: [id number]- All Rights Reserved
[2017-05-08] MEDS: INSULIN GLARGINE,HUM.REC.ANLOG 300 UNIT/3 ML INSULN.PEN SUBCUT SCH (10:42)
[2017-05-08] MEDS: ENOXAPARIN SODIUM INJ 40 MG/0.4 ML DISP.SYRIN SUBCUT SCH (10:42)
[2017-05-08] MEDS ORDERED: POTASSIUM CHLORIDE 10 MEQ TABLET.SA PO ONE (13:26)
[2017-05-08] MEDS ORDERED: FUROSEMIDE INJ/PF 20 MG/2 ML SDV IV ONE (13:26)
[2017-05-08] MEDS: BUDESONIDE NEB 0.5 MG/2 ML AMPUL NEB SCH (20:10)
[2017-05-08] MEDS: METHYLPREDNISOLONE INJ 40 MG/1 ML SDV IV SCH (23:03)
[2017-05-09] MEDS: METHYLPREDNISOLONE INJ 40 MG/1 ML SDV IV SCH (06:09)
[2017-05-09] MEDS: IPRATROPIUM/ALBUTEROL 0.5-2.5 MG/3 ML AMPUL NEB PRN ×2 (07:53→19:56)
[2017-05-09] MEDS: BUDESONIDE NEB 0.5 MG/2 ML AMPUL NEB SCH ×2 (07:53→19:56)
[2017-05-09] MEDS: LANSOPRAZOLE 30 MG TAB.RAP.DR PO SCH (07:55)
[2017-05-09] MEDS: INSULIN LISPRO 100 UNIT/ML 3 ML VIAL SUBCUT PRN ×4 (07:55→21:23)
[2017-05-09] MEDS: INSULIN LISPRO 100 UNIT/ML 3 ML VIAL SUBCUT SCH ×3 (09:20→17:48)
[2017-05-09] MEDS: ENOXAPARIN SODIUM INJ 40 MG/0.4 ML DISP.SYRIN SUBCUT SCH (09:21)
[2017-05-09] MEDS: INSULIN GLARGINE,HUM.REC.ANLOG 300 UNIT/3 ML INSULN.PEN SUBCUT SCH (09:21)
--- NOTE | 2017-05-09 12:42 | PDOC PROGRESS REPORT ---
Subjective Progress Note for:: 05/09/17 Subjective:: Patient was admitted for acute pancreatitis on 05/05/2017. She had an abnormal HIDA scan followed by a normal MRI. Yesterday, the patient appeared to be in respiratory distress. She was treated emergently with BiPAP and corticosteroids intravenously as well as stat bronchodilator therapy. She had very good response. Her chest x-ray showed mild pulmonary edema and she was given 20 mg of IV Lasix. Today, she states that she feels great. She slept last night with the BiPAP on and states that she got the best sleep she has ever had in her life. She feels no abdominal pain. She wants us to advance her diet and she feels that she is nearing a point where she can consider going home. She is also moving her bowels without any difficulty and urinating without any difficulty. I did speak to the patient about why she takes propranolol. She was put on this medication back in the 1980s for migraine prophylaxis. We did discuss the interaction of propranolol and aggravating some underlying asthma. Physical Exam Vital Signs: Temp Pulse Resp BP Pulse Ox 97.5 F 75 20 163/59 H 95 05/09/17 08:20 05/09/17 08:20 05/09/17 08:20 05/09/17 08:20 05/09/17 08:20 Intake & Output 05/08/17 05/09/17 05/10/17 06:59 06:59 06:59 Intake Total 3838 860 Output Total 2195 2100 Balance 1643 -1240 Weight 87.7 kg Additional comments: The patient appears to be markedly improved when compared to yesterday. She was sitting up to a chair. She did have a nasal cannula on but did not appear to be tachypneic. I did not hear any audible wheezing. Her mentation and cognition are appropriate. Her lungs today demonstrate a few minimal crackles and rales in the posterior lung arciniega at the bases only. No wheezing is present. The cardiovascular exam demonstrates a regular rate and rhythm without murmurs, gallops or rubs. The abdomen is obese but soft. Bowel sounds are noted. There is no guarding or rebound present there are no hernias or masses. The patient denies all abdominal complaints at this time. Her legs are warm to touch without edema. Skin is warm dry and intact without lesions or rashes. Results Laboratory Results: 05/08/17 03:50 05/08/17 03:50 Impressions: Abdomen MRI 05/05/17 00:00 IMPRESSION: NORMAL HEPATOBILIARY SYSTEM. NO STONES OR COMMON DUCT ABNORMALITIES. Hepatobiliary Scan Nuclear Medicine 05/05/17 00:00 IMPRESSION: Persistent liver uptake at 0400 hours without biliary excretion. This is a either due to profound hepatocellular dysfunction/acute hepatitis or could be related to high-grade biliary outflow obstruction due to distal ductal stone or stricture. Findings were discussed with the patient's attending physician. MRCP is recommended for followup. Abdomen/Pelvis CT 05/05/17 04:54 IMPRESSION: No acute findings. Mild hepatic steatosis. Abdomen Ultrasound 05/05/17 06:56 IMPRESSION: No acute findings. Moderate hepatic steatosis. Chest X-Ray 05/08/17 09:34 IMPRESSION: Interstitial pattern in the lungs suspicious for edema. Assessment & Plan - Diagnosis (1) Diabetes mellitus Qualifiers: Diabetes mellitus type: type 2 Diabetes mellitus complication status: without complication Is this a current diagnosis for this admission?: Yes Plan: Continue with basal insulin and sliding scale coverage. (2) HTN (hypertension) Qualifiers: Hypertension type: essential hypertension Qualified Code(s): I10 - Essential (primary) hypertension Is this a current diagnosis for this admission?: Yes Plan: Propranolol was discontinued because it is a nonselective beta-claudia and the patient appears to be having asthma with exacerbation. So far, there is no evidence of beta-claudia withdrawal. However, I am anticipating this. I did discuss this with the patient. I would prefer that she be on a beta 1 selective agent. Cost may be a factor as the patient currently is without a secondary healthcare plan. (3) Pancreatitis Qualifiers: Chronicity: acute Pancreatitis type: unspecified pancreatitis type Acute pancreatitis complication: unspecified Qualified Code(s): K85.90 - Acute pancreatitis without necrosis or infection, unspecified Is this a current diagnosis for this admission?: Yes Plan: Clinically resolved. Lipase was normal yesterday. Diet has been advanced to carbohydrate controlled. (4) Transaminitis Is this a current diagnosis for this admission?: Yes Plan: Patient will need follow-up with gastroenterology. She is being evaluated for nonalcoholic fatty liver disease and nonalcoholic steatohepatitis. (5) Acute respiratory distress Is this a current diagnosis for this admission?: Yes Plan: The patient was treated urgently yesterday for both acute asthma attack and for pulmonary edema. Now, she appears to be significantly improved. I will stop IV corticosteroids and place her on low-dose prednisone. She will likely benefit from a sleep study as an outpatient. - Time Time Spent with patient: 25-34 minutes - Inpatient Certification Medical Necessity: Need Close Monitoring Due to Risk of Patient Decompensation
[2017-05-09] MEDS: PREDNISONE 20 MG TABLET PO SCH (17:49)
[2017-05-10] MEDS: LORAZEPAM INJ 2 MG/1 ML VIAL IV PRN (00:28)
[2017-05-10 05:31] LABS: HEMATOCRIT 32.4 % (36.0-47.0); HEMOGLOBIN 11.3 g/dL (12.0-15.5); HGB HCT DIFFERENCE 1.5; MEAN CORPUSCULAR HEMOGLOBIN 32.5 pg (27.0-33.4); MEAN CORPUSCULAR VOLUME 93 fl (80-97); RED BLOOD COUNT 3.48 10^6/uL (3.72-5.28); RED CELL DISTRIBUTION WIDTH 12.5 % (11.5-14.0); WHITE BLOOD COUNT 10.5 10^3/uL (4.0-10.5)
[2017-05-10 05:50] LABS: BAND NEUTROPHILS % (MANUAL) 3 % (3-5); BASOPHILS % (MANUAL) 0 % (0-2); EOSINOPHILS % (MANUAL) 0 % (0-6); LYMPHOCYTES % (MANUAL) 6 % (13-45); TOTAL CELLS COUNTED 100
[2017-05-10 05:52] LABS: ALANINE AMINOTRANSFERASE 174 U/L (9-52); ALKALINE PHOSPHATASE 142 U/L (38-126); ANION GAP 10 (5-19); ASPARTATE AMINO TRANSFERASE 42 U/L (14-36); BILIRUBIN,DIRECT 1.3 mg/dL (0.0-0.4); BILIRUBIN,TOTAL 1.7 mg/dL (0.2-1.3); BLOOD UREA NITROGEN 27 mg/dL (7-20); CALCIUM 8.7 mg/dL (8.4-10.2); CARBON DIOXIDE 30 mmol/L (22-30); CHLORIDE 96 mmol/L (98-107); CREATININE RESULT 0.66 mg/dL (0.52-1.25); GLUCOSE 377 mg/dL (75-110); PHOSPHORUS 3.3 mg/dL (2.5-4.5); POTASSIUM 3.9 mmol/L (3.6-5.0); SODIUM 135.7 mmol/L (137-145); TOTAL PROTEIN 5.2 g/dL (6.3-8.2)
[2017-05-10 05:53] LABS: RBC MORPHOLOGY COMMENT NORMO-CYTIC/CHROMIC; TOXIC GRANULATION SLIGHT; TOXIC VACUOLATION PRESENT
[2017-05-10] MEDS: LANSOPRAZOLE 30 MG TAB.RAP.DR PO SCH (07:50)
[2017-05-10] MEDS: BUDESONIDE NEB 0.5 MG/2 ML AMPUL NEB SCH (08:13)
[2017-05-10] MEDS: IPRATROPIUM/ALBUTEROL 0.5-2.5 MG/3 ML AMPUL NEB PRN (08:13)
[2017-05-10] MEDS: ENOXAPARIN SODIUM INJ 40 MG/0.4 ML DISP.SYRIN SUBCUT SCH (09:22)
[2017-05-10] MEDS: INSULIN LISPRO 100 UNIT/ML 3 ML VIAL SUBCUT SCH ×2 (09:22→11:56)
[2017-05-10] MEDS: PREDNISONE 20 MG TABLET PO SCH (09:22)
[2017-05-10] MEDS: INSULIN GLARGINE,HUM.REC.ANLOG 300 UNIT/3 ML INSULN.PEN SUBCUT SCH (09:22)
[2017-05-10] MEDS: INSULIN LISPRO 100 UNIT/ML 3 ML VIAL SUBCUT PRN ×2 (09:22→11:56)
--- NOTE | 2017-05-10 11:16 | PDOC DISCHARGE SUMMARY ---
General - Admit/Disc Date/PCP Admission Date/Primary Care Provider: 05/05/17 08:16 Discharge Date: 05/10/17 - Discharge Diagnosis (1) Diabetes mellitus Is this a current diagnosis for this admission?: Yes (2) HTN (hypertension) Is this a current diagnosis for this admission?: Yes (3) Pancreatitis Is this a current diagnosis for this admission?: Yes (4) Transaminitis Is this a current diagnosis for this admission?: Yes (5) Acute respiratory distress Is this a current diagnosis for this admission?: Yes (6) Thrombocytopenia Is this a current diagnosis for this admission?: Yes - Additional Information Resuscitation Status: Full Code Discharge Diet: Diabetic Discharge Activity: Activity As Tolerated Home Medications: Albuterol Sulfate [Proair HFA] 2 puff IH Q4HP PRN 05/05/17 Aspirin [Aspirin EC] 81 mg PO DAILY 05/05/17 Glipizide [Glucotrol 5 mg Tablet] 5 mg PO BIDBS 05/05/17 Insulin Glargine,Hum.rec.anlog [Lantus Insulin 100 Unit/1 ml 10 ml] 90 unit SUBCUT QAM 05/05/17 Insulin Lispro [Humalog Insulin (Lispro) 100 unit/mL] 10 unit SUBCUT QAM Meloxicam [Mobic] 7.5 mg PO DAILY 05/05/17 Omeprazole 40 mg PO QAM 05/05/17 Ranitidine HCl [Zantac 150 mg Tablet] 150 mg PO BID 05/05/17 Budesonide [Pulmicort Neb 0.5 mg/2 ml Ampul] 0.5 mg NEB RTQ12 30 Days #60 ampul.neb 05/10/17 Carvedilol [Coreg 3.125 mg Tablet] 3.125 mg PO Q12 14 Days #30 tablet 05/10/17 Prednisone [Deltasone 20 mg Tablet] 5 mg PO BID 5 Days #10 tablet 05/10/17 History of Present Illness History of Present Illness: KIM CROSS is a 76 year old female who presented to emergency room complaining of stomach pain in band like distribution since last night. Patient states that she was watching TV when began experiencing pain. She called the emergency room around 2 AM for advice since pain has been getting progressively worse. Patient also complains of nausea. She denies a similar episode. Patient does carry a history of diabetes and take oral medications. She denies smoking. She denies history of cholecystectomy. During evaluation in emergency room lipase was elevated and our service was contacted for further management. Hospital Course Hospital Course: The patient was admitted for acute pancreatitis on 05/05/2017. She had an abnormal HIDA scan followed by a normal MRI. On Wednesday05/08/17, the patient appeared to be in respiratory distress. She was treated emergently with BiPAP and corticosteroids intravenously as well as stat bronchodilator therapy. She had a very good response. Her chest x-ray showed mild pulmonary edema and she was given 20 mg of IV Lasix. Her symptoms were resolved within 6- 8 hours. She slept with the BiPAP on and states that she got the best sleep she has ever had in her life. She may have underlying obstructive sleep apnea. It is recommended that the patient have a sleep study in the outpatient arena. When the patient developed respiratory distress I felt that was secondary to asthma with acute exacerbation as well as some underlying pulmonary edema. The patient has been using propranolol for migraine prophylaxis since the 1980s. However, she has recently been diagnosed with adult onset asthma. Due to the fact that propranolol can aggravate asthma due to its non-selective beta claudia properties I discontinued the patient's propranolol. On the day of discharge she started to develop an increased heart rate and increased blood pressure. I am concerned about beta-claudia withdrawal and I have placed her on low-dose carvedilol. She will need a timely follow-up with her primary child care attendant to determine if this medication needs to be continued or tapered upward. During this hospitalization the patient did have some thrombocytopenia likely related to her acute illness. This is improving. Currently, her platelet count is 143. The patient also has had abnormal liver function tests during this hospitalization. Her total bilirubin level, direct bilirubin level , alkaline phosphatase level, AST level and ALT levels have been elevated. However, they are coming down. They are not yet normal and they will need to be followed after discharge. The patient is going to be discharged on low-dose prednisone. This will be continued for 5 days. She has had some hyperglycemia in relation to the corticosteroids. This should resolve quickly as the dose is lowered. The patient will continue her basal insulin, mealtime coverage and sliding scale. She will also restart her sulfonylurea. Physical Exam Vital Signs: Temp Pulse Resp BP Pulse Ox 97.7 F 82 14 167/67 H 97 05/10/17 07:44 05/10/17 08:13 05/10/17 08:13 05/10/17 07:44 05/10/17 08:13 Intake & Output 05/09/17 05/10/17 05/11/17 06:59 06:59 06:59 Intake Total 860 2165 Output Total 2100 400 Balance -1240 1765 Weight 87.7 kg Additional comments: The patient has looked quite well over the last 48 hours. She is nontoxic and not in any distress. Her facial appearance is normal. Her cognition and mentation are normal. Cranial nerves II through XII are intact. Her lungs demonstrate very few crackles only in the posterior lung arciniega at the bases. Overall, the lungs are much improved. No wheezing is present today. The cardiac exam demonstrates a regular rate and rhythm without murmurs, gallops or rubs. The abdomen is soft and flat. The patient does not have guarding, rebound, tenderness present. Bowel sounds are present. The lower extremities are warm to touch without edema. The skin is warm, dry, intact without lesions or rashes. Results Laboratory Results: 05/10/17 04:24 05/10/17 04:24 05/10/17 05/10/17 04:24 04:24 WBC 10.5 RBC 3.48 L Hgb 11.3 L Hct 32.4 L MCV 93 MCH 32.5 MCHC 35.0 RDW 12.5 Plt Count 143 L Seg Neutrophils % Not Reportable Lymphocytes % Not Reportable Monocytes % Not Reportable Eosinophils % Not Reportable Basophils % Not Reportable Absolute Neutrophils Not Reportable Absolute Lymphocytes Not Reportable Absolute Monocytes Not Reportable Absolute Eosinophils Not Reportable Absolute Basophils Not Reportable Sodium 135.7 L Potassium 3.9 Chloride 96 L Carbon Dioxide 30 Anion Gap 10 BUN 27 H Creatinine 0.66 Est GFR ( Amer) > 60 Est GFR (Non-Af Amer) > 60 Glucose 377 H Calcium 8.7 Phosphorus 3.3 Magnesium 2.0 Total Bilirubin 1.7 H AST 42 H ALT 174 H Alkaline Phosphatase 142 H Total Protein 5.2 L Albumin 3.0 L Impressions: Abdomen MRI 05/05/17 00:00 IMPRESSION: NORMAL HEPATOBILIARY SYSTEM. NO STONES OR COMMON DUCT ABNORMALITIES. Hepatobiliary Scan Nuclear Medicine 05/05/17 00:00 IMPRESSION: Persistent liver uptake at 0400 hours without biliary excretion. This is a either due to profound hepatocellular dysfunction/acute hepatitis or could be related to high-grade biliary outflow obstruction due to distal ductal stone or stricture. Findings were discussed with the patient's attending physician. MRCP is recommended for followup. Abdomen/Pelvis CT 05/05/17 04:54 IMPRESSION: No acute findings. Mild hepatic steatosis. Abdomen Ultrasound 05/05/17 06:56 IMPRESSION: No acute findings. Moderate hepatic steatosis. Chest X-Ray 05/08/17 09:34 IMPRESSION: Interstitial pattern in the lungs suspicious for edema. Plan Discharge Plan: 1. Follow-up with primary child care attendant within 1 week. 2. Follow-up for liver function testing, CBC, BMP in 1-2 weeks 3. Consider further testing for sleep apnea Time Spent: Greater than 30 Minutes
[2017-05-10] MEDS ORDERED: CARVEDILOL 3.125 MG TABLET PO ONE (12:00)
[2017-05-10 12:21] VITALS: BP 144/72
[2017-05-10] MEDS ORDERED: CARVEDILOL 3.125 MG TABLET PO SCH (22:00)
== END 2017-05-10 14:00 | disposition home or self-care (01) | DRG 439 ==
LOC: ER 04:36 → OBSVTOIN 08:16 → EH 08:16 → UNDOADMOB 09:03 → 4N 11:26
PROVIDERS: ADMIT Family Medicine; ATTEND Family Medicine
PROC: 3E0F73Z Introduction of Anti-inflammatory into Respiratory Tract, Via Natural or Artificial Opening (ICD-10-PCS; 2017-05-07)
PROC: 5A09357 Assistance with Respiratory Ventilation, Less than 24 Consecutive Hours, Continuous Positive Airway Pressure (ICD-10-PCS; principal; 2017-05-08)
DX: K85.90 Acute pancreatitis without necrosis or infection, unspecified (principal); J45.901 Unspecified asthma with (acute) exacerbation; E11.9 Type 2 diabetes mellitus without complications; I10 Essential (primary) hypertension; D69.6 Thrombocytopenia, unspecified; G47.33 Obstructive sleep apnea (adult) (pediatric); K76.0 Fatty (change of) liver, not elsewhere classified; Z79.82 Long term (current) use of aspirin; Z79.4 Long term (current) use of insulin; Z79.899 Other long term (current) drug therapy; Z85.3 Personal history of malignant neoplasm of breast; Z85.828 Personal history of other malignant neoplasm of skin; Z88.0 Allergy status to penicillin; Z91.040 Latex allergy status; Z80.9 Family history of malignant neoplasm, unspecified
CPT/HCPCS: 36415; 71010; 74177; 74181; 76705; 78226; 80053; 80074; 81001; 82962; 83605; 83615; 83690; 83735; 84100; 84478; 85025; 87040; 93005; 93010; 94640; 94660; 94799; 96361; 96374; 96375; 96376; 99285; A9537; J1335; J1650; J1815; J1940; J1956; J2060; J2270; J2405; J2920; J2930; J3490; J7030; J7120; J7512; J7620; Q9969; S0028; S0164

== ENCOUNTER → 2017-05-26 | Outpatient (CLI) | payer MEDICARE ==
--- NOTE | 2017-05-26 11:54 | WOMENS IMAGING REPORT ---
EXAM DESCRIPTION: 3D DX MAMMO BILAT; U/S BREAST UNILAT LIMITED COMPLETED DATE/TIME: 05/26/2017 11:13 am; 05/26/2017 11:25 am REASON FOR STUDY: HISTORY OF BREAST CANCER; Z85.30; RIGHT BREAST PALP Z85.3 PERSONAL HISTORY OF MAL IGNANT NEOPLASM OF BREAST COMPARISON: Prior mammograms have been requested but are unavailable at this time. TECHNIQUE: Standard craniocaudal and mediolateral oblique views of each breast recorded using digita l acquisition and breast tomosynthesis. Additional spot compression MLO and CC images of the right breast and compression magnification MLO a nd CC images of the left breast. LIMITATIONS: None. FINDINGS: RIGHT BREAST MASSES: Spiculated mass in the medial breast corresponding to the palpable finding. CALCIFICATIONS: No new or suspicious calcifications. ARCHITECTURAL DISTORTION: None. DEVELOPING DENSITY: None. ASYMMETRY: None noted. OTHER: No other significant findings. LEFT BREAST MASSES: No suspicious masses. CALCIFICATIONS: No new or suspicious calcifications. ARCHITECTURAL DISTORTION: None. DEVELOPING DENSITY: None. ASYMMETRY: None noted. OTHER: No other significant finding. Read with the assistance of CAD: .[facility] - R2 C[employer]ova Version 1.3 .[facility] - R2 Cenova Version 1.3 .[facility] - R2 Cenova Version 2.4 .[facility] - R2 Cenova Version 2.4 .[facility] - R2 [employer] Professional Version 9.2 BREAST ULTRASOUND: TECHNIQUE: Static and dynamic grayscale images acquired of the right breast in the specific areas of clinical/mammographic concern. Selected color Doppler images recorded. ELASTOGRAPHY PERFORMED: No. LIMITATIONS: None. FINDINGS: MASS: Irregular spiculated solid mass in the medial breast, measuring 1.5 x 2.1 cm. Marked irregular spiculated margins. ELASTOGRAPHY CHARACTERISTICS: Not applicable. OTHER: No other significant finding. IMPRESSION: Suspicious solid spiculated mass in the medial right breast corresponding to the palpabl e finding. No worrisome mammographic findings in the left breast. BREAST DENSITY: b. There are scattered areas of fibroglandular density. BIRAD: 4 Suspicious. Biopsy should be considered. RECOMMENDATION: RECOMMENDED FOLLOW UP: Birads 4: Biopsy should be performed in the absence of clinic al contraindication. SPECIFIC INTERVENTION/IMAGING/CONSULTATION RECOMMENDED:The suspicious finding(s) amenable to US guide d core/vacuum assisted biopsy. COMMUNICATION:The imaging findings were not discussed with the patient. Her referring provider has be en notified of the findings. COMMENT: The patient has been notified of the results by letter per MQSA requirements. Additional no tification policies are in place for contacting patient with suspicious or incomplete findings. Quality ID #[id number]: The [employer] recommends an annual screening mammogram for women aged 40 years or over. This facility utilizes a reminder system to ensure that all patients receive reminder letters, and/or direct phone calls for appointments. This includes reminders for routine scr eening mammograms, diagnostic mammograms, or other Breast Imaging Interventions when appropriate. Th is patient will be placed in the appropriate reminder system. The [employer] (ACR) has developed recommendations for screening MRI of the breast s in certain patient populations, to be used in conjunction with mammography. Breast MRI surveillanc e may be appropriate for women with more than 20% lifetime risk of developing breast cancer as deter mined by genetic testing, significant family history of the disease, or history of mantle radiation f or Hodgkins Disease. ACR Practice Guidelines 2008. DBT Technology DBT is a type of tomographic mammography. With conventional mammography, overlapping breast tissue ma y make lesions difficult to detect, even with good compression. DBT uses an x-ray tube that rotates a round the breast, taking images at different angles. These images are then combined to create thin sl ices of the breast that the radiologist can view as a 3D reconstruction. The [employer]Pad unit can perform full-field digital mammograms (2D imaging); or DBT (3D imaging); or both, in a combination mode that quickly performs both the mammogram and the tomosynthesis scan while the breast is still compressed. PQRS 6045F: Fluoroscopic imaging is not utilized for breast tomosynthesis. TECHNICAL DOCUMENTATION: FINDING NUMBER: (1) ASSESSMENT: (1) JOB ID: [id number] All Rights Reserved
--- NOTE | 2017-05-26 11:54 | WOMENS IMAGING REPORT ---
EXAM DESCRIPTION: 3D DX MAMMO BILAT; U/S BREAST UNILAT LIMITED COMPLETED DATE/TIME: 05/26/2017 11:13 am; 05/26/2017 11:25 am REASON FOR STUDY: HISTORY OF BREAST CANCER; Z85.30; RIGHT BREAST PALP Z85.3 PERSONAL HISTORY OF MAL IGNANT NEOPLASM OF BREAST COMPARISON: Prior mammograms have been requested but are unavailable at this time. TECHNIQUE: Standard craniocaudal and mediolateral oblique views of each breast recorded using digita l acquisition and breast tomosynthesis. Additional spot compression MLO and CC images of the right breast and compression magnification MLO a nd CC images of the left breast. LIMITATIONS: None. FINDINGS: RIGHT BREAST MASSES: Spiculated mass in the medial breast corresponding to the palpable finding. CALCIFICATIONS: No new or suspicious calcifications. ARCHITECTURAL DISTORTION: None. DEVELOPING DENSITY: None. ASYMMETRY: None noted. OTHER: No other significant findings. LEFT BREAST MASSES: No suspicious masses. CALCIFICATIONS: No new or suspicious calcifications. ARCHITECTURAL DISTORTION: None. DEVELOPING DENSITY: None. ASYMMETRY: None noted. OTHER: No other significant finding. Read with the assistance of CAD: .[facility] - R2 Cenova Version 1.3 .[facility] - R2 Cenova Version 1.3 .[facility] - R2 Cenova Version 2.4 .[facility] - R2 Cenova Version 2.4 .[facility] - R2 [employer] Version 9.2 BREAST ULTRASOUND: TECHNIQUE: Static and dynamic grayscale images acquired of the right breast in the specific areas of clinical/mammographic concern. Selected color Doppler images recorded. ELASTOGRAPHY PERFORMED: No. LIMITATIONS: None. FINDINGS: MASS: Irregular spiculated solid mass in the medial breast, measuring 1.5 x 2.1 cm. Marked irregular spiculated margins. ELASTOGRAPHY CHARACTERISTICS: Not applicable. OTHER: No other significant finding. IMPRESSION: Suspicious solid spiculated mass in the medial right breast corresponding to the palpabl e finding. No worrisome mammographic findings in the left breast. BREAST DENSITY: b. There are scattered areas of fibroglandular density. BIRAD: 4 Suspicious. Biopsy should be considered. RECOMMENDATION: RECOMMENDED FOLLOW UP: Birads 4: Biopsy should be performed in the absence of clinic al contraindication. SPECIFIC INTERVENTION/IMAGING/CONSULTATION RECOMMENDED:The suspicious finding(s) amenable to US guide d core/vacuum assisted biopsy. COMMUNICATION:The imaging findings were not discussed with the patient. Her referring provider has be en notified of the findings. COMMENT: The patient has been notified of the results by letter per MQSA requirements. Additional no tification policies are in place for contacting patient with suspicious or incomplete findings. Quality ID #225: The [employer] recommends an annual screening mammogram for women aged 40 years or over. This facility utilizes a reminder system to ensure that all patients receive reminder letters, and/or direct phone calls for appointments. This includes reminders for routine scr eening mammograms, diagnostic mammograms, or other Breast Imaging Interventions when appropriate. Th is patient will be placed in the appropriate reminder system. The [employer] (ACR) has developed recommendations for screening MRI of the breast s in certain patient populations, to be used in conjunction with mammography. Breast MRI surveillanc e may be appropriate for women with more than 20% lifetime risk of developing breast cancer as deter mined by genetic testing, significant family history of the disease, or history of mantle radiation f or Hodgkins Disease. ACR Practice Guidelines 2008. DBT Technology DBT is a type of tomographic mammography. With conventional mammography, overlapping breast tissue ma y make lesions difficult to detect, even with good compression. DBT uses an x-ray tube that rotates a round the breast, taking images at different angles. These images are then combined to create thin sl ices of the breast that the radiologist can view as a 3D reconstruction. The [employer] unit can perform full-field digital mammograms (2D imaging); or DBT (3D imaging); or both, in a combination mode that quickly performs both the mammogram and the tomosynthesis scan while the breast is still compressed. PQRS 6045F: Fluoroscopic imaging is not utilized for breast tomosynthesis. TECHNICAL DOCUMENTATION: FINDING NUMBER: (1) ASSESSMENT: (1) JOB ID: [id number] [employer]- All Rights Reserved
== END ==
LOC: WI 05-12 10:20
PROVIDERS: ATTEND Registered Nurse
DX: Z85.3 Personal history of malignant neoplasm of breast (principal)
CPT/HCPCS: 76642; G0279; G0204; 77062; 77066

== ENCOUNTER 2017-07-07 09:08 | Day surgery (SDC) | payer MEDICARE ==
[2017-07-05 10:24] LABS: ABSOLUTE BASOPHILS # (AUTO) 0.1 10^3/uL (0.0-0.2); ABSOLUTE EOSINOPHILS # (AUTO) 0.1 10^3/uL (0.0-0.6); ABSOLUTE LYMPHOCYTES (AUTO) 0.8 10^3/uL (0.5-4.7); ABSOLUTE MONOCYTES (AUTO) 0.5 10^3/uL (0.1-1.4); ABSOLUTE NEUT (AUTO) 6.2 10^3/uL (1.7-8.2); BASOPHILS % (AUTO) 0.7 % (0-2); EOSINOPHILS % (AUTO) 1.6 % (0-6); HEMATOCRIT 40.8 % (36.0-47.0); HEMOGLOBIN 13.8 g/dL (12.0-15.5); LYMPHOCYTES % (AUTO) 10.8 % (13-45); MEAN CORPUSCULAR HEMOGLOBIN 31.2 pg (27.0-33.4); MEAN CORPUSCULAR HGB CONC 33.9 g/dL (32.0-36.0); MEAN CORPUSCULAR VOLUME 92 fl (80-97); MONOCYTES % (AUTO) 6.7 % (3-13); PLATELET COUNT 180 10^3/uL (150-450); RED BLOOD COUNT 4.43 10^6/uL (3.72-5.28); RED CELL DISTRIBUTION WIDTH 12.5 % (11.5-14.0); SEGMENTED NEUTROPHILS % (AUTO) 80.2 % (42-78); TOTAL CELLS COUNTED % (AUTO) 100 %; WHITE BLOOD COUNT 7.8 10^3/uL (4.0-10.5)
[2017-07-05 10:54] LABS: ANION GAP 10 (5-19); BLOOD UREA NITROGEN 16 mg/dL (7-20); CALCIUM 10.1 mg/dL (8.4-10.2); CARBON DIOXIDE 28 mmol/L (22-30); CHLORIDE 95 mmol/L (98-107); POTASSIUM 4.9 mmol/L (3.6-5.0); SODIUM 132.9 mmol/L (137-145)
[2017-07-05 11:11] LABS: GLUCOSE 478 mg/dL (75-110)
--- NOTE | 2017-07-05 17:07 | EKG REPORT ---
SEVERITY:- NORMAL ECG - SINUS RHYTHM : Confirmed by: Levar Abreu MD 05-Jul-2017 17:06:28
[~2017-07-07 09:08] MED LIST: CEFAZOLIN 1 GM/D5W RTU 1 GM/50 ML RTUPB IV PRN; CLINDAMYCIN 600 MG/D5W RTU 600 MG/50 ML RTUPB IV PRN; LACTATED RINGERS 1000 ML IV PRN; LIDOCAINE 0.5% INJ-PF (5 MG/ML) 50 ML SDV SUBCUT PRN; LIDOCAINE 4% TRANSPARENT DRESSING 5 GM KIT TP PRN
[2017-07-07] MEDS ORDERED: SUCCINYLCHOLINE CHLORIDE INJ 200 MG/10 ML VIAL ONE (10:54)
[2017-07-07] MEDS ORDERED: LIDOCAINE 2% INJ-PF (20 MG/ML) 2 ML AMPUL ONE (10:54)
[2017-07-07] MEDS ORDERED: ONDANSETRON HCL INJ/PF 4 MG/2 ML SDV ONE (10:54)
[2017-07-07] MEDS ORDERED: DEXAMETHASONE SOD PHOSPHATE INJ 4 MG/1 ML VIAL ONE (10:54)
[2017-07-07] MEDS ORDERED: MICROFIBRILLAR COLLAGEN 1 GM PACK ONE ×2 (11:55→13:53)
[2017-07-07] MEDS ORDERED: METHYLENE BLUE 50 MG/10 ML AMPULE ONE (11:56)
[2017-07-07] MEDS ORDERED: LIDOCAINE 2%/EPINEPHRINE INJ 20 ML VIAL ONE (11:56)
[2017-07-07] MEDS ORDERED: FENTANYL CITRATE INJ/PF 100 MCG/2 ML AMPUL ONE ×2 (12:06→14:54)
[2017-07-07] MEDS ORDERED: ACETAMINOPHEN 100 ML IV ONE (12:07)
[2017-07-07] MEDS ORDERED: PROPOFOL INJ 200 MG/20 ML VIAL IV ONE (12:07)
[2017-07-07] MEDS ORDERED: MIDAZOLAM 2 MG/2 ML INJ ONE (12:07)
[2017-07-07] MEDS ORDERED: MEPERIDINE HCL/PF INJ 25 MG/1 ML DISP.SYRIN IV PRN (12:53)
[2017-07-07] MEDS ORDERED: DIPHENHYDRAMINE HCL 50 MG/ML VIAL IV PRN (12:53)
[2017-07-07] MEDS ORDERED: MORPHINE SULFATE 10 MG/ML INJ IV PRN (12:53)
[2017-07-07] MEDS ORDERED: FENTANYL CITRATE INJ/PF 100 MCG/2 ML AMPUL IV PRN ×3 (12:53)
[2017-07-07] MEDS ORDERED: PROMETHAZINE HCL INJ 25 MG/1 ML VIAL IV PRN (12:53)
--- NOTE | 2017-07-07 13:17 | RADIOLOGY REPORT (SQ) ---
EXAM DESCRIPTION: NM LYMPHATICS/LYMPH GLANDS COMPLETED DATE/TIME: 07/07/2017 11:44 am REASON FOR STUDY: RT BREAST CA C50.911 MALIGNANT NEOPLASM OF UNSP SITE OF RIGHT FEMALE VI COMPARISON: None. RADIONUCLIDE AND DOSE: 561 microcuries TC-99mtilmanocept - [employer]. The route of agent administration: Subcutaneous in the skin. TECHNIQUE: The skin of the right breast was prepped in sterile fashion. The radiopharmaceutical was administered in equally divided doses in the periareolar breast. LIMITATIONS: None. FINDINGS: Images demonstrate activity at the injection site. Migration of activity towards the righ t axilla. [place] node marked. IMPRESSION: ADMINISTRATION OF RADIOPHARMACEUTICAL FOR SENTINEL LYMPH NODE EVALUATION. TECHNICAL DOCUMENTATION: JOB ID: [id number] [employer]- All Rights Reserved
--- NOTE | 2017-07-07 14:10 | Operative Report ---
Operative Report DATE OF SURGERY: 07/07/17 PREOPERATIVE DIAGNOSIS: 1. 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 2. History of left breast carcinoma, status post left breast lumpectomy POSTOPERATIVE DIAGNOSIS: Same OPERATION: 1. Dual mapping sentinel lymph node biopsy right axilla 2. 2. Ultrasound directed right breast lumpectomy. 3. Right breast lumpectomy cavity shave margin excision 5 SURGEON: EVERETT MANNING RESIDENTIAL SALES EXECUTIVE: PAM MENDOZA ANESTHESIA: GA TISSUE REMOVED OR ALTERED: Multiple specimens see below COMPLICATIONS: None ESTIMATED BLOOD LOSS: Scant INTRAOPERATIVE FINDINGS: See below PROCEDURE: The patient was seen in the preop holding area with her right breast was marked. She previously underwent right breast lymphoscintigraphy with successful sentinel lymph node mapping to the right axilla. She was taken to the operating room where general anesthesia was induced. Right arm was abducted , right breast exposed, and as part of the dual mapping technique, approximately 3 cc of pulling blue, sterile, was injected into the right breast , areolar border, o'clock position intradermally with the right breast massaged for 5 minutes. The right breast and axilla were then prepped and draped in sterile fashion. Surgical plan and surgical timeout repeated We proceeded with the right axillary sentinel lymph node biopsy first. Increased activity was detected in the low axilla. Skin was anesthetized with quarter percent Marcaine, a 2 cm incision was made the skin, and using neoprobe hemostats and S shaped retractors, sentinel lymph node harvest was undertaken. Therefore sentinel lymph node identified level 1, was hot but not blue with an in vivo count of 2223 and an ex vivo count of 891. Adjacent to this was a blue hot node with an in vivo count of 34,676 and an ex vivo count of 28,362. Ground counts in the axilla were minimal. We felt that the sentinel lymph node biopsy portion of the operation was complete We now turned our attention to the right breast. The right breast was scanned with the variable frequency linear transducer. Findings were significant for a 2-1/2+ cm constantly oriented right breast cancer, o'clock position breast 11 cm from the nipple. And was anesthetized with quarter percent Marcaine, and a thin ellipse of skin was excised at the site of the planned lumpectomy in conjunction with the overlying breast parenchyma. Incision was approximately 5 cm in length. Garnica superior inferior medial and lateral skin flaps and took the level of dissection all the way to the chest wall with the pectoralis major fascia with the specimen. The specimen was removed, oriented with a long suture in the lateral position, short suture in the superior position. It was sent to pathology labeled as right breast lumpectomy pending right breast invasive carcinoma and sent for permanent analysis As planned, we now proceeded with the shave margin. This was performed using electrocautery, pickups and gentle retraction. The margins of the lumpectomy cavity included the barrier edge of the cavity, medial edge, lateral edge, inferior edge, and the posterior edge. The posterior margin consisted of some elements of the pectoralis muscle. Each specimen was packaged separately, and oriented with a silk suture placed on the exterior or true final margin. Specimen was placed on a piece of Telfa, and submitted in its own container for permanent analysis. We returned to both incision check for bleeding there was none. Avitene slurry was placed into the recesses of both wounds, large Andrea drain placed in the right breast through the inframammary fold secured to skin with 2-0 Prolene suture. Wounds closed with 2-0 Vicryl Dermabond glue applied. Patient tolerated the procedure well, extubated, taken recovery room stable condition.
--- NOTE | 2017-07-07 14:14 | PDOC DISCHARGE SUMMARY ---
Discharge Summary (SDC) - Discharge Final Diagnosis: Right breast cancer Date of Surgery: 07/07/17 Discharge Date: 07/07/17 Condition: Stable Treatment or Instructions: [facility] [address] [place] [id number] Care Instructions Following Your Mastectomy/Lumpectomy Activities: Resume normal activities when you feel comfortable. It is best to remain as active as possible to speed your recovery. It is common to experience some fatigue after surgery and you may find that short naps are helpful. Avoid strenuous activity such as weight lifting, tennis, etc at your surgical site for two weeks. Perform gentle arm exercises daily and do not favor your operative arm to due increased risk of mobility issues postoperatively. No driving for 7 days after surgery. Do not drive if you are taking pain medication other than Tylenol or Ibuprofen. No swimming, tub baths or soaking in a hot tub for 4 weeks. There are no dietary restrictions. Do not smoke as this impairs wound healing. Surgical Site care: You may shower in 48 hours. Leave skin glue intact. Do not scrub the incision. Pat the area dry with a towel. You do not need to recover the wound although some patients find that they feel more comfortable using a light dressing for a few days to absorb any minimal drainage which may occur. Many patients also find that keeping a dressing around the drain exit site is helpful to absorb any drainage which may leak around the tubing. If you use a dressing in this manner change it at least every day. Do not use heating pad or apply an ice pack to the operative site. You may apply deodorant if you are careful to avoid getting it on the wound itself. Empty the bulbs attached to the drain every 12 hours and measure the fluid output separately from each drain. Please also strip each drain each time you empty it to prevent clogging. Keep a record of the output and bring this record with you each time you come to the office for postoperative care. A drain is ready to be removed when its output is 30 mL per 24 hours per drain for 2 consecutive days. Please call the office to inform our staff that you need to come in for drain removal. Medications: Take Toradol 10mg on tablet every 4-6 hours as needed for pain. You may also take Tylenol in rotation with the Toradol. Do not exceed 4mg of Tylenol a day. Resume all of your normal prescription medications after your surgery unless instructed otherwise. You may experience constipation after surgery while taking pain medications. If using a narcotic on a regular basis, take a stool softener such as Colace twice a day. It is helpful to stay hydrated by drinking lots of fluids. Walking is also helpful and is good exercise after surgery. If you need extra help, use Milk of Magnesia according to the directions on the package. Follow-up: Call our office at to make a follow-up appointment in 10-14 days. Your doctor will call to discuss the pathology report with you as soon as it is available. Concerns: If you had a sentinel lymph node biopsy with your mastectomy, your urine may have a greenish discoloration. This is normal and will resolve as the blue dye slowly leaves your system. If you notice significant leakage around the drains , this is not normal. The drains may be clogged. Please call our office to come in immediately for the drains to be checked. Some bruising may occur and will go away over time. If you have a fever of 101.5 or greater, chills, redness at the incision site, excessive drainage from your wound or severe pain not relieved by pain medication, call your doctor. A physician is available 24 hours a day 7 days a week in addition to regular office hours. If problems arise after normal office hours please call the hospital at . Please call if you have any questions or concerns. Prescriptions: Ketorolac Tromethamine [Toradol 10 mg Tablet] 10 mg PO Q6HP PRN #25 tablet PRN Reason: Referrals: ARASH SAMUELS NP [Primary Care Provider] - Discharge Diet: As Tolerated Discharge Activity: Walk Frequently Report the Following to Your Physician Immediately: Increase in Pain, Fever over 101 Degrees, Drainage-Foul Smelling
[2017-07-07] MEDS ORDERED: OXYCODONE-ACETAMINOPHEN 5-325 MG TABLET ONE (16:03)
[2017-07-07 20:38] VITALS: BP 142/72
== END 2017-07-07 17:20 | disposition home or self-care (01) ==
LOC: OROUT 09:08
PROVIDERS: ATTEND Surgery
PROC: 07B50ZX Excision of Right Axillary Lymphatic, Open Approach, Diagnostic (ICD-10-PCS; 2017-07-07)
PROC: 0HBT0ZZ Excision of Right Breast, Open Approach (ICD-10-PCS; principal; 2017-07-07 13:00)
DX: C50.811 Malignant neoplasm of overlapping sites of right female breast (principal); Z17.0 Estrogen receptor positive status [ER+]; N64.1 Fat necrosis of breast; K21.9 Gastro-esophageal reflux disease without esophagitis; E11.9 Type 2 diabetes mellitus without complications; F41.8 Other specified anxiety disorders; J45.909 Unspecified asthma, uncomplicated; M19.90 Unspecified osteoarthritis, unspecified site; Z87.19 Personal history of other diseases of the digestive system; Z85.828 Personal history of other malignant neoplasm of skin; Z87.891 Personal history of nicotine dependence; Z79.899 Other long term (current) drug therapy; Z79.51 Long term (current) use of inhaled steroids; Z79.82 Long term (current) use of aspirin; Z79.4 Long term (current) use of insulin
CPT/HCPCS: 19301; 38500; 93005; 36415; 82962; 85025; 80048; 88342 ×2; 88305 ×2; 88307 ×2; 78195; 93010; A9520; J2250; J1100; J3010; J3490 ×4; A9270; J0330; J2405; J2704; J0131; Q9968; 1610

== ENCOUNTER → 2017-09-02 | Outpatient (CLI) | payer MEDICARE ==
[2017-09-02 10:47] LABS: ABSOLUTE EOSINOPHILS # (AUTO) 0.2 10^3/uL (0.0-0.6); ABSOLUTE LYMPHOCYTES (AUTO) 0.9 10^3/uL (0.5-4.7); ABSOLUTE MONOCYTES (AUTO) 0.6 10^3/uL (0.1-1.4); ABSOLUTE NEUT (AUTO) 5.8 10^3/uL (1.7-8.2); BASOPHILS % (AUTO) 0.6 % (0-2); EOSINOPHILS % (AUTO) 2.3 % (0-6); HEMATOCRIT 40.6 % (36.0-47.0); HEMOGLOBIN 13.7 g/dL (12.0-15.5); LYMPHOCYTES % (AUTO) 12.5 % (13-45); MEAN CORPUSCULAR HEMOGLOBIN 30.8 pg (27.0-33.4); MEAN CORPUSCULAR HGB CONC 33.6 g/dL (32.0-36.0); MEAN CORPUSCULAR VOLUME 92 fl (80-97); MONOCYTES % (AUTO) 7.5 % (3-13); PLATELET COUNT 175 10^3/uL (150-450); RED BLOOD COUNT 4.43 10^6/uL (3.72-5.28); RED CELL DISTRIBUTION WIDTH 13.1 % (11.5-14.0); SEGMENTED NEUTROPHILS % (AUTO) 77.1 % (42-78); TOTAL CELLS COUNTED % (AUTO) 100 %; WHITE BLOOD COUNT 7.5 10^3/uL (4.0-10.5)
[2017-09-02 11:07] LABS: ALANINE AMINOTRANSFERASE 48 U/L (9-52); ALKALINE PHOSPHATASE 87 U/L (38-126); ASPARTATE AMINO TRANSFERASE 21 U/L (14-36); BILIRUBIN,DIRECT 0.5 mg/dL (0.0-0.4); BILIRUBIN,TOTAL 0.8 mg/dL (0.2-1.3); TOTAL PROTEIN 6.7 g/dL (6.3-8.2)
== END ==
LOC: OD 09:42
PROVIDERS: ATTEND Radiology Radiation Oncology
DX: C50.211 Malignant neoplasm of upper-inner quadrant of right female breast (principal); Z17.0 Estrogen receptor positive status [ER+]; Z79.899 Other long term (current) drug therapy
CPT/HCPCS: 36415; 80076; 85025

== ENCOUNTER → 2017-11-23 | Outpatient (CLI) | payer MEDICARE ==
[2017-11-23 11:32] LABS: ABSOLUTE EOSINOPHILS # (AUTO) 0.2 10^3/uL (0.0-0.6); ABSOLUTE LYMPHOCYTES (AUTO) 0.9 10^3/uL (0.5-4.7); ABSOLUTE MONOCYTES (AUTO) 0.5 10^3/uL (0.1-1.4); ABSOLUTE NEUT (AUTO) 5.5 10^3/uL (1.7-8.2); BASOPHILS % (AUTO) 0.6 % (0-2); EOSINOPHILS % (AUTO) 2.3 % (0-6); HEMATOCRIT 38.7 % (36.0-47.0); LYMPHOCYTES % (AUTO) 13.1 % (13-45); MEAN CORPUSCULAR HEMOGLOBIN 30.9 pg (27.0-33.4); MEAN CORPUSCULAR HGB CONC 33.7 g/dL (32.0-36.0); MEAN CORPUSCULAR VOLUME 92 fl (80-97); PLATELET COUNT 195 10^3/uL (150-450); RED BLOOD COUNT 4.22 10^6/uL (3.72-5.28); RED CELL DISTRIBUTION WIDTH 13.6 % (11.5-14.0); TOTAL CELLS COUNTED % (AUTO) 100 %; WHITE BLOOD COUNT 7.2 10^3/uL (4.0-10.5)
== END ==
LOC: OD 10:42
PROVIDERS: ATTEND Radiology Radiation Oncology
DX: C50.211 Malignant neoplasm of upper-inner quadrant of right female breast (principal); Z17.0 Estrogen receptor positive status [ER+]
CPT/HCPCS: 36415; 85025

== ENCOUNTER 2018-03-19 12:48 | Emergency (ER) | payer MEDICARE ==
[2018-03-19] MEDS ORDERED: ACETAMINOPHEN 325 MG TABLET PO ONE (14:07)
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
[2018-03-19 14:47] LABS: ABSOLUTE EOSINOPHILS # (AUTO) 0.1 10^3/uL (0.0-0.6); ABSOLUTE LYMPHOCYTES (AUTO) 0.7 10^3/uL (0.5-4.7); ABSOLUTE MONOCYTES (AUTO) 0.6 10^3/uL (0.1-1.4); ABSOLUTE NEUT (AUTO) 6.2 10^3/uL (1.7-8.2); BASOPHILS % (AUTO) 0.3 % (0-2); EOSINOPHILS % (AUTO) 0.9 % (0-6); HEMATOCRIT 39.2 % (36.0-47.0); HEMOGLOBIN 13.2 g/dL (12.0-15.5); LYMPHOCYTES % (AUTO) 8.6 % (13-45); MEAN CORPUSCULAR HEMOGLOBIN 31.8 pg (27.0-33.4); MEAN CORPUSCULAR HGB CONC 33.8 g/dL (32.0-36.0); MEAN CORPUSCULAR VOLUME 94 fl (80-97); MONOCYTES % (AUTO) 7.9 % (3-13); PLATELET COUNT 185 10^3/uL (150-450); RED BLOOD COUNT 4.16 10^6/uL (3.72-5.28); RED CELL DISTRIBUTION WIDTH 13.2 % (11.5-14.0); SEGMENTED NEUTROPHILS % (AUTO) 82.3 % (42-78); TOTAL CELLS COUNTED % (AUTO) 100 %; WHITE BLOOD COUNT 7.6 10^3/uL (4.0-10.5)
[2018-03-19 15:06] LABS: ALANINE AMINOTRANSFERASE 68 U/L (9-52); ALBUMIN 4.4 g/dL (3.5-5.0); ALKALINE PHOSPHATASE 91 U/L (38-126); ANION GAP 11 (5-19); ASPARTATE AMINO TRANSFERASE 35 U/L (14-36); BILIRUBIN,DIRECT 0.4 mg/dL (0.0-0.4); BILIRUBIN,TOTAL 0.7 mg/dL (0.2-1.3); BLOOD UREA NITROGEN 16 mg/dL (7-20); CALCIUM 10.3 mg/dL (8.4-10.2); CARBON DIOXIDE 25 mmol/L (22-30); CHLORIDE 101 mmol/L (98-107); GLUCOSE 314 mg/dL (75-110); POTASSIUM 4.2 mmol/L (3.6-5.0); SODIUM 136.5 mmol/L (137-145); TOTAL PROTEIN 7.3 g/dL (6.3-8.2)
--- NOTE | 2018-03-19 15:11 | RADIOLOGY REPORT (SQ) ---
EXAM DESCRIPTION: RIBS RIGHT W/PA CHEST COMPLETED DATE/TIME: 03/19/2018 2:56 pm REASON FOR STUDY: right rib pain COMPARISON: 05/08/2017. TECHNIQUE: Frontal view of the chest and additional views of the right ribs acquired. NUMBER OF VIEWS: Three view. LIMITATIONS: None. FINDINGS: FRONTAL CXR: No pneumothorax. No pleural effusion. No atelectasis or infiltrates. RIBS: Nondisplaced fracture of the lateral 8th rib. OTHER: Displaced fracture of the distal right clavicle. There may be an associated lytic lesion. IMPRESSION: 1. NONDISPLACED FRACTURE OF THE LATERAL RIGHT 8TH RIB. 2. DISPLACED FRACTURE OF THE DISTAL RIGHT CLAVICLE. UNKNOWN IF THIS IS RECENT OR OLD. HOWEVER, THIS WAS NOT PRESENT ON THE PRIOR CHEST X-RAY IN APRIL 2017. THERE MAY BE AN ASSOCIATED LYTIC LESION AND THIS COULD BE A PATHOLOGIC FRACTURE. COMMENT: SITE OF TRAUMA/COMPLAINT MARKED/STAMP COMPLETED: YES. TECHNICAL DOCUMENTATION: JOB ID: [id number] [employer]- All Rights Reserved Reading location - IP/workstation name: [email or web address]
[2018-03-19] MEDS ORDERED: INSULIN REG, HUMAN 100 UNIT/ML 3 ML VIAL (PYX) SUBCUT ONE (17:12)
[2018-03-19] MEDS ORDERED: NORMAL SALINE 1000 ML 1,000 ML IV ONE (17:55)
[2018-03-19] MEDS ORDERED: LORAZEPAM INJ 2 MG/1 ML VIAL IV ONE (17:56)
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
--- NOTE | 2018-03-19 19:27 | RADIOLOGY REPORT (SQ) ---
EXAM DESCRIPTION: CTA CHEST COMPLETED DATE/TIME: 03/19/2018 7:03 pm REASON FOR STUDY: ?PE/ Lytic lesion COMPARISON: None. TECHNIQUE: CT scan of the chest performed using helical scanning technique with dynamic intravenous contrast injection. Images reviewed with lung, soft tissue and bone windows. Reconstructed coronal and sagittal MPR images reviewed. Additional 3 dimensional post-processing performed to develop Maximal Intensity Projection images (DC P). All images stored on PACS. All CT scanners at this facility use dose modulation, iterative reconstruction, and/or weight based d osing when appropriate to reduce radiation dose to as low as reasonably achievable (ALARA). [facility]: Dose Right [facility]: CareDose [facility]: Dose Right [facility]: Teradose 4D [facility]: [employer] CONTRAST TYPE AND DOSE: contrast/concentration: Isovue 350.00 mg/ml; Total Contrast Delivered: 86.0 ml; Total Saline Delivered: 80.0 ml Contrast bolus optimized for the pulmonary arteries. Not diagnostic for the aorta. RENAL FUNCTION: BUN 16 creatinine 0.61. RADIATION DOSE: CT Rad equipment meets quality standard of care and radiation dose reduction techniq ues were employed. CTDIvol: 16.2 - 16.5 mGy. DLP: 576 mGy-cm. . LIMITATIONS: None. FINDINGS: LUNGS AND PLEURA: No masses, infiltrates, or pneumothorax. No pleural effusions or pleura l calcifications. AORTA AND GREAT VESSELS: No aneurysm. Contrast bolus not optimized for the aorta. HEART: No pericardial effusion. No significant coronary artery calcifications. PULMONARY ARTERIES: No emboli visualized in the main pulmonary arteries or the segmental branches. HILAR AND MEDIASTINAL STRUCTURES: No identified masses or abnormal nodes. HARDWARE: None in the chest. UPPER ABDOMEN: No significant findings. Limited exam. THYROID AND OTHER SOFT TISSUES: No masses. No adenopathy. BONES: Healing fracture of the lower lateral right 6th rib. Possible nondisplaced fracture of the la teral right 8th rib. Lytic lesion in the distal right clavicle with pathologic fracture. Lytic lesi ons in the T5 and T12 vertebrae. 3D MIPS: Confirm above findings. OTHER: No other significant finding. IMPRESSION: 1. NORMAL CTA OF THE CHEST. NO PULMONARY EMBOLI. 2. BONY METASTATIC DISEASE. LYTIC LESIONS IN THE T5 AND T12 VERTEBRAE. LYTIC LESION IN THE DISTAL R IGHT CLAVICLE WITH PATHOLOGIC FRACTURE. RIGHT-SIDED RIB FRACTURES DESCRIBED WHICH MAY BE NONPATHO LOGIC IN NATURE. COMMENT: Quality ID # 436: Final reports with documentation of one or more dose reduction techniques (e.g., Automated exposure control, adjustment of the mA and/or kV according to patient size, use of iterative reconstruction technique) TECHNICAL DOCUMENTATION: JOB ID: [id number] [employer]- All Rights Reserved Reading location - IP/workstation name: [email or web address]
[2018-03-19] MEDS ORDERED: HYDROCODONE/ACETAMINOPHEN 5-325 MG (6 TAB/ER DISP) PO PRN (20:44)
[2018-03-19 21:29] VITALS: BP 143/71
== END 2018-03-19 21:40 | disposition home or self-care (01) ==
LOC: ER 12:48
DX: M84.411A Pathological fracture, right shoulder, initial encounter for fracture (principal); M84.48XA Pathological fracture, other site, initial encounter for fracture; Z85.3 Personal history of malignant neoplasm of breast; Z87.891 Personal history of nicotine dependence
CPT/HCPCS: 99285; 96361; 96374; 36415; 82962; 85025; 80053; 85379; 71101; 71275; A9270 ×2; J2060; J1815

== ENCOUNTER → 2018-03-22 | Outpatient (CLI) | payer MEDICARE ==
--- NOTE | 2018-03-22 12:45 | RADIOLOGY REPORT (SQ) ---
EXAM DESCRIPTION: NM WHOLE BODY BONE SCAN COMPLETED DATE/TIME: 03/22/2018 12:06 pm REASON FOR STUDY: BREAST CA (C50.211), SECONDARY BONE CA (C79.51) C50.211 MALIG NEOPLM OF UPPER-INN ER QUADRANT OF RIGHT FEMALE COMPARISON: No available imaging studies for comparison. RADIONUCLIDE AND DOSE: 21.5 millicuries Tc99m MDP. The route of agent administration: Intravenous. ADDITIONAL DRUGS AND DOSES: None. TECHNIQUE: Routine delayed images at 3 hour post radionuclide injection acquired of the bony skeleto n including anterior and posterior whole-body projections and additional focused images as needed. LIMITATIONS: None. FINDINGS: BONES: Multiple focal areas of increased uptake in the posterior spine, right lateral ribs , left skull, bilateral humeral heads, and distal clavicles, right greater than left. KIDNEYS: Symmetric excretion without obstruction. OTHER: No other significant finding. IMPRESSION: Bone metastasis. COMMENT: Quality measure 147: Current bone scan is compared with any available plain radiographs, p rior bone scans, and CT/MRI. TECHNICAL DOCUMENTATION: JOB ID: [id number] [employer]- All Rights Reserved Reading location - IP/workstation name: [email or web address]
== END ==
LOC: RAD 08:29
PROVIDERS: ATTEND Radiology Radiation Oncology
DX: C50.211 Malignant neoplasm of upper-inner quadrant of right female breast (principal); Z17.0 Estrogen receptor positive status [ER+]; C79.51 Secondary malignant neoplasm of bone
CPT/HCPCS: 78306; A9561; Q9969

== ENCOUNTER → 2018-03-24 | Outpatient (CLI) | payer MEDICARE ==
--- NOTE | 2018-03-24 14:24 | RADIOLOGY REPORT (SQ) ---
EXAM DESCRIPTION: CT ABD/PELVIS WITH IV ORAL COMPLETED DATE/TIME: 03/24/2018 1:56 pm REASON FOR STUDY: BREAST CA (C50.411) C50.411 MALIG NEOPLM OF UPPER-OUTER QUADRANT OF RIGHT FEMALE COMPARISON: 05/05/2017 TECHNIQUE: CT scan of the abdomen and pelvis performed using helical scanning technique with dynamic intravenous contrast injection. No oral contrast. Images reviewed with lung, soft tissue, and bone windows. Reconstructed coronal and sagittal MPR images reviewed. Delayed images for evaluation of the urinary system also acquired. All images stored on PACS. All CT scanners at this facility use dose modulation, iterative reconstruction, and/or weight based d osing when appropriate to reduce radiation dose to as low as reasonably achievable (ALARA). [facility]: Dose Right [facility]: CareDose [facility]: Dose Right [facility]: Teradose 4D [facility]: [employer] CONTRAST TYPE AND DOSE: contrast/concentration: Isovue 350.00 mg/ml; Total Contrast Delivered: 90.0 ml; Total Saline Delivered: 70.0 ml RENAL FUNCTION: Not available at time of dictation. RADIATION DOSE: CT Rad equipment meets quality standard of care and radiation dose reduction techniq ues were employed. CTDIvol: 14.4 - 16.4 mGy. DLP: 1449 mGy-cm.. LIMITATIONS: None. FINDINGS: LOWER CHEST: No significant findings. No nodules or infiltrates. LIVER: There is decreased attenuation throughout the liver consistent with fatty infiltration. No fo elaine masses. SPLEEN: Normal size. No focal lesions. PANCREAS: No masses. No significant calcifications. No adjacent inflammation or peripancreatic fluid collections. Pancreatic duct not dilated. GALLBLADDER: No identified stones by CT criteria. No inflammatory changes to suggest cholecystitis. ADRENAL GLANDS: No significant masses or asymmetry. RIGHT KIDNEY AND URETER: No solid masses. No significant calcifications. No hydronephrosis or hyd roureter. LEFT KIDNEY AND URETER: No solid masses. No significant calcifications. No hydronephrosis or hydr oureter. AORTA AND VESSELS: No aneurysm. No dissection. Renal arteries, SMA, celiac without stenosis. RETROPERITONEUM: No retroperitoneal adenopathy, hemorrhage or masses. BOWEL AND PERITONEAL CAVITY: No masses or inflammatory changes. No free fluid or peritoneal masses. APPENDIX: Not visualized. PELVIS: No mass. No free fluid. Normal bladder. ABDOMINAL WALL: No masses. No hernias. BONES: There is a large lytic lesion in the body of T12 new from prior study. Findings are suspiciou s for metastatic disease. OTHER: No other significant finding. IMPRESSION: New large lytic lesion the body of T12. Metastatic disease is suspected. TECHNICAL DOCUMENTATION: JOB ID: [id number] Quality ID # 436: Final reports with documentation of one or more dose reduction techniques (e.g., Au tomated exposure control, adjustment of the mA and/or kV according to patient size, use of iterative reconstruction technique) 2010 [employer]- All Rights Reserved Reading location - IP/workstation name: [email or web address]
== END ==
LOC: RAD 12:38
PROVIDERS: ATTEND Internal Medicine
DX: C50.411 Malignant neoplasm of upper-outer quadrant of right female breast (principal)
CPT/HCPCS: 74177

== ENCOUNTER 2018-04-06 08:42 | Day surgery (SDC) | payer MEDICARE ==
[2018-04-06 09:39] LABS: HEMATOCRIT 35.6 % (36.0-47.0); MEAN CORPUSCULAR HEMOGLOBIN 31.5 pg (27.0-33.4); MEAN CORPUSCULAR HGB CONC 33.8 g/dL (32.0-36.0); MEAN CORPUSCULAR VOLUME 93 fl (80-97); PLATELET COUNT 192 10^3/uL (150-450); RED BLOOD COUNT 3.82 10^6/uL (3.72-5.28); RED CELL DISTRIBUTION WIDTH 13.2 % (11.5-14.0); WHITE BLOOD COUNT 6.2 10^3/uL (4.0-10.5)
[2018-04-06 09:43] LABS: INTERNATIONAL RATION (INR) 0.92; PROTHROMBIN TIME 12.8 SEC (11.4-15.4)
[2018-04-06 09:44] LABS: PARTIAL THROMBOPLASTIN TIME 29.8 SEC (23.5-35.8)
[2018-04-06 09:53] LABS: BLOOD UREA NITROGEN 24 mg/dL (7-20)
[2018-04-06] MEDS ORDERED: BUPIVACAINE HCL 0.5 % INJ/PF 30 ML SDV ONE (11:09)
[2018-04-06] MEDS ORDERED: FENTANYL CITRATE INJ/PF 100 MCG/2 ML AMPUL ONE (11:10)
[2018-04-06] MEDS ORDERED: LIDOCAINE 1% INJ-PF (10 MG/ML) 30 ML SDV ONE (11:10)
[2018-04-06] MEDS ORDERED: MIDAZOLAM 2 MG/2 ML INJ ONE (11:10)
--- NOTE | 2018-04-06 13:01 | RADIOLOGY REPORT (SQ) ---
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 TECHNIQUE: CT guided biopsy of the lytic lesion posterior half T12 vertebral body performed with con scious sedation. CT Fluoroscopy Time: 18.[address] scanners at this facility use dose modulation, iterative reconstruction, and/or weight based d osing when appropriate to reduce radiation dose to as low as reasonably achievable (ALARA). [facility]: Dose Right [facility]: CareDose [facility]: Dose Right [facility]: Teradose 4D [facility]: [employer] RADIATION DOSE: mGy. FINDINGS: After obtaining informed consent and explaining the risks and benefits of conscious sedati on,the patient agreed to the procedure. Prior to the procedure, a time out was performed to verify th e patient's identity and planned procedure. IV sedation was administered and physician direction by the registered nurse using 1 milligrams of Ve rsed and 50 micrograms of fentanyl, for conscious sedation. Physiologic monitoring was provided befor e, during, and after sedation. The total sedation time was 42 minutes. Documentation face to face time, the performing proceduralist, spent monitoring the patient: [address] scanning was performed to localize the percutaneous site for the biopsy approach. After sterile skin prep and local lidocaine for skin and deep tissue anesthesia, a coaxial 18/19 gaug e biopsy needle was used to obtain one core of tissue. A second attempt at obtaining a core biopsy w as performed, no further material was obtained. Further attempts at obtaining more tissue from the T 12 vertebral body were not made, there is no bony cortex between the metastatic lesion and spinal can al. There was moderate bleeding back through the needle after the core biopsy attempts. The biopsy tract was embolized with a single Gel-Foam plugs. The biopsy tissue was submitted to the lab in forma gómez. There were no immediate complications. Pathology is pending at the time of dictation. IMPRESSION: CT GUIDED BIOPSY OF THE LYTIC LESION POSTERIOR HALF T12 VERTEBRAL BODY PERFORMED WITHOUT IMMEDIATE COMPLICATION. PATHOLOGY PENDING. COMMENT: Quality ID 145: Final reports for procedures using fluoroscopy that document radiation exp osure indices, or exposure time and number of fluorographic images (if radiation exposure indices are not available) Patient medication list reviewed: Yes- Quality ID# 130:Eligible professional attests to documenting i n the medical record they obtained, updated, or reviewed the patient's current medications.. TECHNICAL DOCUMENTATION: JOB ID: [id number] Quality ID# 436: Final reports with documentation of one or more dose reduction techniques (e.g., Aut omated exposure control, adjustment of the mA and/or kV according to patient size, use of iterative r econstruction technique) 2010 [employer]- All Rights Reserved Reading location - IP/workstation name: [email or web address]
--- NOTE | 2018-04-06 13:02 | RADIOLOGY REPORT (SQ) ---
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 TECHNIQUE: CT guided biopsy of the lytic lesion posterior half T12 vertebral body performed with con scious sedation. CT Fluoroscopy Time: 18.[address] scanners at this facility use dose modulation, iterative reconstruction, and/or weight based d osing when appropriate to reduce radiation dose to as low as reasonably achievable (ALARA). [facility]: Dose Right [facility]: CareDose [facility]: Dose Right [facility]: Teradose 4D [facility]: [employer] RADIATION DOSE: mGy. FINDINGS: After obtaining informed consent and explaining the risks and benefits of conscious sedati on,the patient agreed to the procedure. Prior to the procedure, a time out was performed to verify th e patient's identity and planned procedure. IV sedation was administered and physician direction by the registered nurse using 1 milligrams of Ve rsed and 50 micrograms of fentanyl, for conscious sedation. Physiologic monitoring was provided befor e, during, and after sedation. The total sedation time was 42 minutes. Documentation face to face time, the performing proceduralist, spent monitoring the patient: [address] scanning was performed to localize the percutaneous site for the biopsy approach. After sterile skin prep and local lidocaine for skin and deep tissue anesthesia, a coaxial 18/19 gaug e biopsy needle was used to obtain one core of tissue. A second attempt at obtaining a core biopsy w as performed, no further material was obtained. Further attempts at obtaining more tissue from the T 12 vertebral body were not made, there is no bony cortex between the metastatic lesion and spinal can al. There was moderate bleeding back through the needle after the core biopsy attempts. The biopsy tract was embolized with a single Gel-Foam plugs. The biopsy tissue was submitted to the lab in forma gómez. There were no immediate complications. Pathology is pending at the time of dictation. IMPRESSION: CT GUIDED BIOPSY OF THE LYTIC LESION POSTERIOR HALF T12 VERTEBRAL BODY PERFORMED WITHOUT IMMEDIATE COMPLICATION. PATHOLOGY PENDING. COMMENT: Quality ID 145: Final reports for procedures using fluoroscopy that document radiation exp osure indices, or exposure time and number of fluorographic images (if radiation exposure indices are not available) Patient medication list reviewed: Yes- Quality ID# [id number]:Eligible professional attests to documenting i n the medical record they obtained, updated, or reviewed the patient's current medications.. TECHNICAL DOCUMENTATION: JOB ID: [id number] Quality ID# 436: Final reports with documentation of one or more dose reduction techniques (e.g., Aut omated exposure control, adjustment of the mA and/or kV according to patient size, use of iterative r econstruction technique) 2010 [employer]- All Rights Reserved Reading location - IP/workstation name: [email or web address]
[2018-04-06 14:07] VITALS: BP 130/90
== END 2018-04-06 14:04 | disposition home or self-care (01) ==
LOC: RAD 08:42
PROVIDERS: ATTEND Internal Medicine
DX: C79.51 Secondary malignant neoplasm of bone (principal); C50.411 Malignant neoplasm of upper-outer quadrant of right female breast; Z17.0 Estrogen receptor positive status [ER+]; E11.9 Type 2 diabetes mellitus without complications; Z15.09 Genetic susceptibility to other malignant neoplasm; Z88.0 Allergy status to penicillin
CPT/HCPCS: 36415; 82962; 84520; 82565; 85027; 85610; 85730; 88305 ×2; 77012; 20225; J2250; J3490 ×2; J3010

== ENCOUNTER 2018-08-03 08:54 | Day surgery (SDC) | payer MEDICARE ==
[~2018-08-03 08:54] MED LIST changes: -CEFAZOLIN 1 GM/D5W RTU 1 GM/50 ML RTUPB IV PRN; +CHONDR SU A NA/HYALUR INTRAOC KIT (SURGICARE) ONE; -CLINDAMYCIN 600 MG/D5W RTU 600 MG/50 ML RTUPB IV PRN; +EPINEPHRINE INJ/PF 1 MG/1 ML AMPULE ONE; +KETOROLAC TROMETHAMINE 0.45% 4 DROP/0.4 ML DROPERETTE OD PRN; -LACTATED RINGERS 1000 ML IV PRN; -LIDOCAINE 0.5% INJ-PF (5 MG/ML) 50 ML SDV SUBCUT PRN; +LIDOCAINE 1% INJ-PF (10 MG/ML) 30 ML SDV ONE; -LIDOCAINE 4% TRANSPARENT DRESSING 5 GM KIT TP PRN; +TOBRAMYCIN SULFATE/DEXAMETH OPH OINTMENT 3.5 GM ONE
[2018-08-03] MEDS: TETRACAINE HCL 0.5% OPH SOLN 0.6 ML DROPERETTE OD PRN ×3 (09:35→10:10)
[2018-08-03] MEDS: TROPICAMIDE 1% OPH SOLN 3 ML OD PRN ×3 (09:36→09:59)
[2018-08-03] MEDS: BESIFLOXACIN HCL 0.6% OPH SUSP 5 ML BOTTLE OD PRN ×4 (09:36→10:25)
[2018-08-03] MEDS: CYCLOPENTOLATE 0.2%/PHENYLEPHRINE 1% OPH SOLN 2 ML OD PRN ×3 (09:36→09:59)
[2018-08-03] MEDS ORDERED: MIDAZOLAM 2 MG/2 ML INJ ONE (09:49)
[2018-08-03] MEDS ORDERED: FENTANYL CITRATE INJ/PF 100 MCG/2 ML AMPUL ONE (09:49)
== END 2018-08-03 11:06 | disposition home or self-care (01) ==
LOC: SC 08:54
PROVIDERS: ATTEND Ophthalmology
DX: H25.11 Age-related nuclear cataract, right eye (principal); E11.9 Type 2 diabetes mellitus without complications; I10 Essential (primary) hypertension; E78.00 Pure hypercholesterolemia, unspecified; C50.919 Malignant neoplasm of unspecified site of unspecified female breast; C79.51 Secondary malignant neoplasm of bone; K21.9 Gastro-esophageal reflux disease without esophagitis; Z79.82 Long term (current) use of aspirin; Z79.84 Long term (current) use of oral hypoglycemic drugs; Z79.51 Long term (current) use of inhaled steroids; Z79.4 Long term (current) use of insulin; Z88.0 Allergy status to penicillin
CPT/HCPCS: 66984; 82962; V2630; J2250; J3490 ×3; A9270; J0171; J3010; 142

== ENCOUNTER 2018-08-17 07:53 | Day surgery (SDC) | payer MEDICARE ==
[~2018-08-17 07:53] MED LIST changes: -KETOROLAC TROMETHAMINE 0.45% 4 DROP/0.4 ML DROPERETTE OD PRN; +KETOROLAC TROMETHAMINE 0.45% 4 DROP/0.4 ML DROPERETTE OS PRN; +LIDOCAINE 1%/PHENYLEPHRINE 1.5% 1 ML VIAL ONE; +MIDAZOLAM 2 MG/2 ML INJ ONE
[2018-08-17] MEDS: TETRACAINE HCL 0.5% OPH SOLN 0.6 ML DROPERETTE OS PRN ×3 (08:56→09:27)
[2018-08-17] MEDS: TROPICAMIDE 1% OPH SOLN 3 ML OS PRN ×3 (08:57→09:19)
[2018-08-17] MEDS: BESIFLOXACIN HCL 0.6% OPH SUSP 5 ML BOTTLE OS PRN ×5 (08:57→09:47)
[2018-08-17] MEDS: CYCLOPENTOLATE 0.2%/PHENYLEPHRINE 1% OPH SOLN 2 ML OS PRN ×3 (08:57→09:19)
[2018-08-17] MEDS: CHONDR SU A NA/HYALUR INTRAOC KIT (SURGICARE) ONE ×2 (09:35→09:36)
[2018-08-17] MEDS: EPINEPHRINE INJ/PF 1 MG/1 ML AMPULE ONE ×2 (09:35→09:36)
[2018-08-17] MEDS: TOBRAMYCIN SULFATE/DEXAMETH OPH OINTMENT 3.5 GM ONE ×3 (09:36→09:47)
== END 2018-08-17 10:20 | disposition home or self-care (01) ==
LOC: SC 07:53
PROVIDERS: ATTEND Ophthalmology
DX: H25.12 Age-related nuclear cataract, left eye (principal); E11.9 Type 2 diabetes mellitus without complications; I10 Essential (primary) hypertension; E78.00 Pure hypercholesterolemia, unspecified; K21.9 Gastro-esophageal reflux disease without esophagitis; Z85.3 Personal history of malignant neoplasm of breast; Z85.830 Personal history of malignant neoplasm of bone; Z88.0 Allergy status to penicillin; Z79.51 Long term (current) use of inhaled steroids; Z79.82 Long term (current) use of aspirin; Z79.84 Long term (current) use of oral hypoglycemic drugs; Z79.899 Other long term (current) drug therapy
CPT/HCPCS: 66984; 82962; V2630; J2250; J3490 ×3; A9270; J0171; 142; J2370

== ENCOUNTER → 2018-08-31 | Outpatient (CLI) | payer MEDICARE ==
--- NOTE | 2018-08-31 10:06 | RADIOLOGY REPORT (SQ) ---
EXAM DESCRIPTION: CT CHEST WITH; CT ABD/PELVIS WITH IV ORAL COMPLETED DATE/TIME: 08/31/2018 8:39 am REASON FOR STUDY: BREAST CA C50.411 MALIG NEOPLM OF UPPER-OUTER QUADRANT OF RIGHT FEMALE COMPARISON: CT abdomen pelvis 03/24/2018 Bone scan 03/22/2018 CT angio chest 03/19/2018 MRI abdomen 05/05/2017 CONTRAST TYPE AND DOSE: contrast/concentration: Isovue 350.00 mg/ml; Total Contrast Delivered: 94.0 ml; Total Saline Delivered: 71.0 ml RENAL FUNCTION: Creatinine 1.0 TECHNIQUE: CT scan of the chest performed using helical scanning technique with dynamic intravenous contrast injection. Images reviewed with lung, soft tissue and bone windows. Reconstructed coronal a nd sagittal MPR images reviewed. All images stored on PACS. CT scan of the abdomen and pelvis performed with intravenous and without oral contrastusing helical s krish technique with dynamic intravenous contrast injection. Images reviewed with lung, soft tissu e and bone windows. Reconstructed coronal and sagittal MPR images reviewed. Delayed images for eval uation of the urinary system also acquired and evaluated. All images stored on PACS. All CT scanners at this facility use dose modulation, iterative reconstruction, and/or weight based d osing when appropriate to reduce radiation dose to as low as reasonably achievable (ALARA). [facility]: Dose Right [facility]: CareDose [facility]: Dose Right [facility]: Teradose 4D [facility]: [employer] RADIATION DOSE: CT Rad equipment meets quality standard of care and radiation dose reduction techniq ues were employed. CTDIvol: 7.6 - 13.0 mGy. DLP: 1575 mGy-cm. . LIMITATIONS: None. FINDINGS: CHEST: LUNGS AND PLEURA: There is now bandlike scarring in the anterior edge of the right middle lobe on axi al image 64, likely post radiation change in the anterior edge of the lung, given history of right br east radiation therapy Lungs are otherwise free of focal infiltrates. No pleural effusion. No pneumothorax. No worrisome pulmonary nodules. HILAR AND MEDIASTINAL STRUCTURES: No identified masses or abnormal nodes. HEART AND VASCULAR STRUCTURES: No aneurysm or dissection. No central pulmonary emboli. No pericardi al effusion. HARDWARE: None. THYROID AND OTHER SOFT TISSUES: Diffuse increased density of the right breast with skin thickening po st radiation therapy BONES: T5 and T12 lytic lesions in the posterior half of the vertebral body seen on 03/19/2018 are now the coming sclerotic. No compression deformity. Old distal right clavicle fracture, old right late ral 6th and 8th rib fractures unchanged from 03/19/2018. OTHER: No other significant finding. ABDOMEN AND PELVIS: LIVER: Normal size. No masses. No dilated ducts. Low attenuation from fatty infiltration. SPLEEN: Normal size. No focal lesions. PANCREAS: No masses. No significant calcifications. No adjacent inflammation or peripancreatic fluid collections. Pancreatic duct not dilated. GALLBLADDER: No identified stones by CT criteria. No inflammatory changes to suggest cholecystitis. ADRENAL GLANDS: No significant masses or asymmetry. RIGHT KIDNEY AND URETER: No solid masses. No significant calcification. No hydronephrosis or hydroure ter. LEFT KIDNEY AND URETER: No solid masses. No significant calcification. No hydronephrosis or hydrouret er. AORTA AND VESSELS: No aneurysm. No dissection. Heavily calcified visceral artery origins and iliac b ifurcation. RETROPERITONEUM: No retroperitoneal adenopathy, hemorrhage or masses. BOWEL AND PERITONEAL CAVITY: No masses or inflammatory changes. No free fluid or peritoneal masses. APPENDIX: Surgically absent ABDOMINAL WALL: No masses. No hernias. PELVIS: No mass or free fluid. Normal bladder. Post hysterectomy BONES: Sclerosis along the upper half of the L5 vertebral body in the area of left upper endplate Opal morl's node versus metastatic lesion. OTHER: No other significant finding. IMPRESSION: Further increase in density of bony lesions at T5, T12, and L5 likely treatment response Post therapeutic changes right breast with scarring in the anterior edge right middle lobe post radia tion therapy Post appendectomy and hysterectomy TECHNICAL DOCUMENTATION: JOB ID: [id number] Quality ID # 436: Final reports with documentation of one or more dose reduction techniques (e.g., Au tomated exposure control, adjustment of the mA and/or kV according to patient size, use of iterative reconstruction technique) 2010 [employer]- All Rights Reserved Reading location - IP/workstation name: [email or web address]
--- NOTE | 2018-08-31 13:28 | RADIOLOGY REPORT (SQ) ---
EXAM DESCRIPTION: NM WHOLE BODY BONE SCAN COMPLETED DATE/TIME: 08/31/2018 12:08 pm REASON FOR STUDY: BREAST CA C50.411 MALIG NEOPLM OF UPPER-OUTER QUADRANT OF RIGHT FEMALE COMPARISON: CT chest abdomen pelvis 08/31/2018 Whole-body bone scan 03/22/2018 RADIONUCLIDE AND DOSE: 21.6 millicuries Tc99m MDP. The route of agent administration: Intravenous. ADDITIONAL DRUGS AND DOSES: None. TECHNIQUE: Routine delayed images at 3 hours post radionuclide injection acquired of the bony skelet on including anterior and posterior whole-body projections and additional focused images as needed. LIMITATIONS: None. FINDINGS: BONES: Left frontal calvarial lesion, thoracic and lumbar spine lesions are stable compare d to 03/22/2018. Increased uptake at the distal right clavicle and right lateral ribs from old healing fractures. KIDNEYS: Symmetric excretion without obstruction. OTHER: No other significant finding. IMPRESSION: No new skeletal lesions. Foci of uptake in the left frontal bone, thoracic and lumbar s pine correlates with treated metastatic lesions COMMENT: Quality measure 147: Current bone scan is compared with any available plain radiographs, p rior bone scans, and CT/MRI. TECHNICAL DOCUMENTATION: JOB ID: [id number] [employer]- All Rights Reserved Reading location - IP/workstation name: [email or web address]
== END ==
LOC: RAD 07:39
PROVIDERS: ATTEND Internal Medicine
DX: C50.411 Malignant neoplasm of upper-outer quadrant of right female breast (principal)
CPT/HCPCS: 82565; 78306; 71260; 74177; A9561; Q9969

== ENCOUNTER 2018-10-13 12:58 | Outpatient (CLI) | payer MEDICARE ==
[~2018-10-13 12:58] MED LIST changes: -CHONDR SU A NA/HYALUR INTRAOC KIT (SURGICARE) ONE; -EPINEPHRINE INJ/PF 1 MG/1 ML AMPULE ONE; +FERUMOXYTOL (NON-ESRD) 510 MG/NS 100 ML IV PRN; -KETOROLAC TROMETHAMINE 0.45% 4 DROP/0.4 ML DROPERETTE OS PRN; -LIDOCAINE 1% INJ-PF (10 MG/ML) 30 ML SDV ONE; -LIDOCAINE 1%/PHENYLEPHRINE 1.5% 1 ML VIAL ONE; -MIDAZOLAM 2 MG/2 ML INJ ONE; +NORMAL SALINE 250 ML IV PRN; -TOBRAMYCIN SULFATE/DEXAMETH OPH OINTMENT 3.5 GM ONE
[2018-10-13 13:29] VITALS: BP 140/68
[2018-10-20] MEDS ORDERED: NORMAL SALINE 250 ML IV PRN (05:00)
[2018-10-20] MEDS ORDERED: FERUMOXYTOL (NON-ESRD) 510 MG/NS 100 ML IV PRN ×2 (05:00)
== END 2018-10-13 14:16 | disposition home or self-care (01) ==
LOC: 5TH 12:58 → II 12:58
PROVIDERS: ATTEND Internal Medicine
PROC: 3E033GC Introduction of Other Therapeutic Substance into Peripheral Vein, Percutaneous Approach (ICD-10-PCS; principal; 2018-10-13)
DX: D50.8 Other iron deficiency anemias (principal); N18.2 Chronic kidney disease, stage 2 (mild)
CPT/HCPCS: 96365; Q0138

== ENCOUNTER 2018-10-20 12:49 | Outpatient (CLI) | payer MEDICARE ==
[2018-10-20 13:25] VITALS: BP 134/64
== END 2018-10-20 14:05 | disposition home or self-care (01) ==
LOC: II 12:49 → 5TH 13:03 → II 14:05
PROVIDERS: ATTEND Internal Medicine
PROC: 3E033GC Introduction of Other Therapeutic Substance into Peripheral Vein, Percutaneous Approach (ICD-10-PCS; principal; 2018-10-20)
DX: D50.8 Other iron deficiency anemias (principal); N18.2 Chronic kidney disease, stage 2 (mild)
CPT/HCPCS: 96365; Q0138

== ENCOUNTER → 2018-11-22 | Outpatient (CLI) | payer MEDICARE ==
--- NOTE | 2018-11-22 09:04 | RADIOLOGY REPORT (SQ) ---
EXAM DESCRIPTION: CT CHEST WITHOUT; CT ABD/PELVIS NO ORAL OR IV COMPLETED DATE/TIME: 11/22/2018 7:36 am; 11/22/2018 7:37 am REASON FOR STUDY: BREAST CA (C50.411) C50.411 MALIG NEOPLM OF UPPER-OUTER QUADRANT OF RIGHT FEMALE COMPARISON: CT chest abdomen and pelvis 08/31/2018 Bone biopsy 04/06/2018 CT abdomen pelvis 03/26/2018, 05/05/2017 CT angio chest 03/19/2015 TECHNIQUE: CT scan of the chest performed without intravenous contrast using helical scanning techni que. Images reviewed with lung, soft tissue and bone windows. Reconstructed coronal and sagittal MPR images reviewed. All images stored on PACS. CT scan of the abdomen and pelvis performed without intravenous contrast and withoutoral contrast usi ng helical scanning technique with dynamic intravenous contrast injection. Images reviewed with lung , soft tissue and bone windows. Reconstructed coronal and sagittal MPR images reviewed. All images stored on PACS. All CT scanners at this facility use dose modulation, iterative reconstruction, and/or weight based d osing when appropriate to reduce radiation dose to as low as reasonably achievable (ALARA). [facility]: Dose Right [facility]: CareDose [facility]: Dose Right [facility]: Teradose 4D [facility]: [employer] RADIATION DOSE: CT Rad equipment meets quality standard of care and radiation dose reduction techniq ues were employed. CTDIvol: 4.8 - 13.8 mGy. DLP: 1014 mGy-cm. mGy. LIMITATIONS: No technical limitations. FINDINGS: CHEST: AXILLAE: No adenopathy. CHEST WALL: No masses. No subcutaneous air. Post radiation change along the right breast LUNGS: No nodules or masses. No pneumothorax. Bandlike scarring anterior aspect right middle lobe f rom radiation therapy to the right breast PLEURA: No effusions. No calcifications. THYROID: No masses or significant asymmetry. HILAR AND MEDIASTINAL STRUCTURES: No identified masses or abnormal nodes. AORTA AND GREAT VESSELS: No aneurysm. HEART: No pericardial effusion. HARDWARE AND LIFELINES: None. BONES: T5 and T12 vertebral body metastatic lesions are stable. Old right distal clavicle and right lateral rib fractures. OTHER: No other significant finding. ABDOMEN AND PELVIS: LIVER: Normal size. No masses. No dilated ducts. Diffuse low attenuation from fatty infiltration SPLEEN: Normal size. No focal lesions. PANCREAS: No masses. No significant calcifications. No adjacent inflammation or peripancreatic flui d collections. Pancreatic duct not dilated. GALLBLADDER: No identified stones by CT criteria. No inflammatory changes to suggest cholecystitis. ADRENAL GLANDS: No significant masses or asymmetry. RIGHT KIDNEY AND URETER: No solid masses. Assessment limited by lack of IV contrast. No significant calcifications. No hydronephrosis or hydroureter. LEFT KIDNEY AND URETER: No solid masses. Assessment limited by lack of IV contrast. No significant calcifications. No hydronephrosis or hydroureter. AORTA AND VESSELS: No aneurysm. RETROPERITONEUM: No retroperitoneal adenopathy, hemorrhage or masses. APPENDIX: Normal. LARGE AND SMALL BOWEL: No dilatation. No masses. No wall thickening. ABDOMINAL WALL: No hernia or masses. PERITONEAL CAVITY: No free air. No free fluid. No peritoneal implants or masses. PELVIS: No mass or free fluid. Normal bladder. Post hysterectomy BONES: L5 vertebral body metastatic lesion is stable OTHER: No other significant finding. IMPRESSION: Stable bony lesions at T5, T12, and L5. Post therapeutic changes right breast. TECHNICAL DOCUMENTATION: JOB ID: [id number] Quality ID # 436: Final reports with documentation of one or more dose reduction techniques (e.g., Au tomated exposure control, adjustment of the mA and/or kV according to patient size, use of iterative reconstruction technique) 2010 [employer]- All Rights Reserved Reading location - IP/workstation name: [email or web address]
--- NOTE | 2018-11-22 12:33 | RADIOLOGY REPORT (SQ) ---
EXAM DESCRIPTION: NM WHOLE BODY BONE SCAN COMPLETED DATE/TIME: 11/22/2018 11:25 am REASON FOR STUDY: BREAST CA (C50.411) C50.411 MALIG NEOPLM OF UPPER-OUTER QUADRANT OF RIGHT FEMALE COMPARISON: 08/31/2018 RADIONUCLIDE AND DOSE: 20 millicuries Tc99m HDP. The route of agent administration: Intravenous. ADDITIONAL DRUGS AND DOSES: None. TECHNIQUE: Routine delayed images at 3 hours post radionuclide injection acquired of the bony skelet on including anterior and posterior whole-body projections and additional focused images as needed. LIMITATIONS: None. FINDINGS: BONES: There are focal areas of increased uptake in the calvarium, right shoulder, right 8 th rib laterally, and in the spine. No new abnormal areas of uptake were seen. KIDNEYS: Symmetric excretion without obstruction. OTHER: No other significant finding. IMPRESSION: Stable bone scan. Findings suggestive of metastatic disease. COMMENT: Quality measure 147: Current bone scan is compared with any available plain radiographs, p rior bone scans, and CT/MRI. TECHNICAL DOCUMENTATION: JOB ID: [id number] [employer]- All Rights Reserved Reading location - IP/workstation name: [email or web address]
== END ==
LOC: RAD 07:11
PROVIDERS: ATTEND Internal Medicine
DX: C50.411 Malignant neoplasm of upper-outer quadrant of right female breast (principal); C79.51 Secondary malignant neoplasm of bone
CPT/HCPCS: 78306; 71250; 74176; A9561; Q9969

== ENCOUNTER → 2018-12-27 | Outpatient (CLI) | payer MEDICARE ==
--- NOTE | 2018-12-27 16:32 | RADIOLOGY REPORT (SQ) ---
EXAM DESCRIPTION: MRI LUMBAR SPINE COMBO COMPLETED DATE/TIME: 12/27/2018 3:59 pm REASON FOR STUDY: (C50.411)MALIG NEOPLM OF UPPER-OUTER QUADRANT OF RIGHT FEMALE BREAST C50.411 PRESLEY G NEOPLM OF UPPER-OUTER QUADRANT OF RIGHT FEMALE C79.51 SECONDARY MALIGNANT NEOPLASM OF BONE COMPARISON: CT abdomen pelvis 11/22/2018 TECHNIQUE: Sagittal and Axial imaging includes T1, T1 post gadolinium, T2, STIR and gradient echo se quences. Coronal T2/HASTE imaging. CONTRAST TYPE AND DOSE: 15 mL Dotarem. RENAL FUNCTION: Not indicated. ACR Type II contrast agent associated with few, if any, unconfounded cases of NSF LIMITATIONS: None. FINDINGS: VISUALIZED UPPER ABDOMEN: Limited evaluation. No acute or suspicious findings suggested. SEGMENTATION: No transitional anatomy. The lowest well-developed disc space is labeled L5-S1. ALIGNMENT: Minimal anterolisthesis of L4 over L5 is present. VERTEBRAE and BONE MARROW: The posterior half of the T12 vertebral body is replaced with tumor. Ther e is bulging of the dorsal bony cortex of the T12 vertebral body into the spinal canal without signif icant central canal impingement. This is best shown on sagittal T1 postcontrast image 9, and axial p ostcontrast T1 image 5. Tumor extends into the pedicles. No displaced acute fracture is identified. No acute T12 compression deformity is identified. L5 upper endplate vertebral body sclerosis with central endplate depression, with about 25% loss of h eight of the L5 vertebral body. This finding is stable compared to previous exams. No abnormal cont rast enhancement of the L5 vertebral body. DISC SIGNAL: Diffuse decreased T2 weighted intervertebral disc signal. POSTERIOR ELEMENTS: Generally intact. No pars defect evident. HARDWARE: None in the spine. CORD AND CONUS: Normal in size and signal intensity. Conus at the L1-2 level. No abnormal distal tho racic cord, conus, or lumbar nerve root contrast-enhancement. SOFT TISSUES: No aortic aneurysm seen. No bulky retroperitoneal adenopathy or mass. No paraspinal mas s or fluid. T11-12: The T11-12 disc space is unremarkable. No central or foraminal encroachment. Again, along the dorsal aspect of T12 there is mild dorsal bowing of the vertebral body metastatic tumor into the spinal canal without significant central canal or foraminal stenosis. T12-L1: At the disc level, no significant central or foraminal stenosis. L1-L2: No significant central or foraminal stenosis L2-L3: No significant central or foraminal stenosis L3-L4: Mild posterior disc bulging, mild bilateral facet and ligament hypertrophy. Borderline centra l canal narrowing. No significant foraminal narrowing. L4-L5: Grade 1 anterolisthesis of L4 over L5 is present. Broad diffuse posterior disc bulging is pre sent with bulky bilateral facet hypertrophy. Moderate central canal narrowing is present best shown on axial image 28. There is mild to moderate bilateral foraminal narrowing without exit L4 nerve huyen t impingement L5-S1: Minimal posterior disc bulging, mild bilateral facet hypertrophy. No significant central or f oraminal encroachment. SACRUM: Unremarkable ENHANCEMENT: No abnormal conus, lumbar nerve root enhancement. OTHER: No other significant findings. IMPRESSION: Metastatic disease replaces the dorsal half of the T12 vertebral body. There is very mi ld bowing of the dorsal bony cortex of T12 into the spinal canal without central or foraminal stenosi s. No acute wedge compression deformity. Degenerative changes with central canal narrowing at L4-5 TECHNICAL DOCUMENTATION: JOB ID: [id number] [employer]- All Rights Reserved Reading location - IP/workstation name: [email or web address]
== END ==
LOC: RAD 15:01
PROVIDERS: ATTEND Internal Medicine
DX: C50.411 Malignant neoplasm of upper-outer quadrant of right female breast (principal); C79.51 Secondary malignant neoplasm of bone; M48.061 Spinal stenosis, lumbar region without neurogenic claudication
CPT/HCPCS: 82565; 72158; A9576

== ENCOUNTER → 2019-02-13 | Outpatient (CLI) | payer MEDICARE ==
--- NOTE | 2019-02-13 11:20 | RADIOLOGY REPORT (SQ) ---
EXAM DESCRIPTION: PELVIS AP COMPLETED DATE/TIME: 02/13/2019 11:09 am REASON FOR STUDY: LOW BACK PAIN,PELVIC AND PERINEAL PAIN C79.51 SECONDARY MALIGNANT NEOPLASM OF BON E R10.2 PELVIC AND PERINEAL PAIN M54.5 LOW BACK PAIN COMPARISON: None. NUMBER OF VIEWS: One view TECHNIQUE: AP Pelvis LIMITATIONS: None. FINDINGS: MINERALIZATION: Normal. HIPS: No acute fracture or dislocation. No worrisome bone lesions. PELVIS AND SACRUM: No acute fracture or dislocation. No worrisome bone lesions. PUBIS AND ISCHIUM: No acute fracture. LOWER LUMBAR SPINE: No significant findings as visualized. SOFT TISSUES: There appears to be considerable retained stool. OTHER: No other significant finding. IMPRESSION: Constipation. No acute osseous finding. COMMENT: Pelvic fractures are often occult on plain radiographs. If strong clinical suspicion for f racture, recommend CT or MR. TECHNICAL DOCUMENTATION: JOB ID: [id number] [employer]- All Rights Reserved Reading location - IP/workstation name: [email or web address]
--- NOTE | 2019-02-13 11:22 | RADIOLOGY REPORT (SQ) ---
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 NUMBER OF VIEWS: Five views including obliques. TECHNIQUE: AP, lateral, oblique, and sacral radiographic images acquired of the lumbar spine. LIMITATIONS: None. FINDINGS: MINERALIZATION: Normal. SEGMENTATION: Normal. No transitional anatomy. ALIGNMENT: Grade 1 anterolisthesis of L4 on L5. VERTEBRAE: Maintained height. No fracture or worrisome bone lesion. DISCS: There is narrowing of the L4-5 disc. POSTERIOR ELEMENTS: Hypertrophic facet changes from L4-S1. HARDWARE: None in the spine. PARASPINAL SOFT TISSUES: Normal. PELVIS: Intact as visualized. No fractures or worrisome bone lesions. SI joints intact. OTHER: No other significant finding. IMPRESSION: Anterolisthesis of L4 on L5. Mild degenerative disc disease. Facet arthropathy. TECHNICAL DOCUMENTATION: JOB ID: [id number]- All Rights Reserved Reading location - IP/workstation name: [email or web address]
== END ==
LOC: OD 10:35
PROVIDERS: ATTEND Internal Medicine
DX: C79.51 Secondary malignant neoplasm of bone (principal); M51.36 Other intervertebral disc degeneration, lumbar region; M54.5 Low back pain; R10.2 Pelvic and perineal pain; K59.00 Constipation, unspecified
CPT/HCPCS: 72110; 72170

== ENCOUNTER → 2019-02-20 | Outpatient (CLI) | payer MEDICARE ==
--- NOTE | 2019-02-20 10:26 | RADIOLOGY REPORT (SQ) ---
EXAM DESCRIPTION: CT CHEST WITH; CT ABD/PELVIS WITH IV ONLY COMPLETED DATE/TIME: 02/20/2019 9:24 am REASON FOR STUDY: C50.411; C50.411 MALIG NEOPLM OF UPPER-OUTER QUADRANT OF RIGHT FEMALE BREAST, C79. 51 C50.411 MALIG NEOPLM OF UPPER-OUTER QUADRANT OF RIGHT FEMALE C79.51 SECONDARY MALIGNANT NEOPLASM OF BONE COMPARISON: 11/22/2018 CONTRAST TYPE AND DOSE: contrast/concentration: Isovue 350.00 mg/ml; Total Contrast Delivered: 87.0 ml; Total Saline Delivered: 69.0 ml 87 mL Omnipaque 350 RENAL FUNCTION: Creatinine 1.0 TECHNIQUE: CT scan of the chest performed using helical scanning technique with dynamic intravenous contrast injection. Images reviewed with lung, soft tissue and bone windows. Reconstructed coronal a nd sagittal MPR images reviewed. All images stored on PACS. CT scan of the abdomen and pelvis performed with intravenous and oral contrast using helical scanning technique with dynamic intravenous contrast injection. Images reviewed with lung, soft tissue and b one windows. Reconstructed coronal and sagittal MPR images reviewed. Delayed images for evaluation of the urinary system also acquired and evaluated. All images stored on PACS. All CT scanners at this facility use dose modulation, iterative reconstruction, and/or weight based d osing when appropriate to reduce radiation dose to as low as reasonably achievable (ALARA). [facility]: Dose Right [facility]: CareDose [facility]: Dose Right [facility]: Teradose 4D [facility]: [employer] Technologies RADIATION DOSE: CT Rad equipment meets quality standard of care and radiation dose reduction techniq ues were employed. CTDIvol: 6.4 - 13.6 mGy. DLP: 1576 mGy-cm. . LIMITATIONS: None. FINDINGS: CHEST: AXILLAE: No adenopathy. CHEST WALL: No masses. No subcutaneous air. LUNGS: Airspace disease in the anterior aspect of the right middle lobe. This could represent post r adiation change, atelectasis or pneumonia. PLEURA: No effusions. No calcifications. THYROID: No masses or significant asymmetry. HILAR AND MEDIASTINAL STRUCTURES: Small stable right peritracheal lymph node measured 1.3 cm. Small left hilar lymph node. This is unchanged as well. AORTA AND GREAT VESSELS: No aneurysm. No dissection. PULMONARY ARTERIES: No identified pulmonary emboli. Study not optimized for the pulmonary arteries. HEART: No pericardial effusion. HARDWARE AND LIFELINES: None. BONES: Stable lesions at T5 and T12. OTHER: No other significant finding. ABDOMEN AND PELVIS: LIVER: Decreased attenuation throughout the liver consistent with fatty infiltration. SPLEEN: Normal size. No focal lesions. PANCREAS: No masses. No significant calcifications. No adjacent inflammation or peripancreatic flui d collections. Pancreatic duct not dilated. GALLBLADDER: No identified stones by CT criteria. No inflammatory changes to suggest cholecystitis. ADRENAL GLANDS: No significant masses or asymmetry. RIGHT KIDNEY AND URETER: No solid masses. No significant calcifications. No hydronephrosis or hyd roureter. LEFT KIDNEY AND URETER: No solid masses. No significant calcifications. No hydronephrosis or hydr oureter. AORTA AND VESSELS: Atherosclerotic change. No aneurysmal dilatation. RETROPERITONEUM: No retroperitoneal adenopathy, hemorrhage or masses. LARGE AND SMALL BOWEL: No dilatation. No masses. No wall thickening. APPENDIX: Surgically absent. ABDOMINAL WALL: No hernia or masses. PERITONEAL CAVITY: No free air. No free fluid. No peritoneal implants or masses. PELVIS: No mass or free fluid. Normal bladder. BONES: Stable changes at L5. OTHER: No other significant finding. IMPRESSION: 1. Airspace disease in the right middle lobe as described. This could represent atelec tasis, pneumonia possibly post radiation change. 2. Small right peritracheal and left hilar lymph node unchanged from prior study. 3. Fatty infiltrated liver. No evidence of metastatic disease in the abdomen or pelvis. 4. Stable bony lesions involving T5, T12 and L5 appear TECHNICAL DOCUMENTATION: JOB ID: [id number] Quality ID # [id number]: Final reports with documentation of one or more dose reduction techniques (e.g., Au tomated exposure control, adjustment of the mA and/or kV according to patient size, use of iterative reconstruction technique) 2010 [employer]- All Rights Reserved Reading location - IP/workstation name: [email or web address]
== END ==
LOC: RAD 08:44
PROVIDERS: ATTEND Nurse Practitioner Family
DX: C50.411 Malignant neoplasm of upper-outer quadrant of right female breast (principal); C79.51 Secondary malignant neoplasm of bone
CPT/HCPCS: 71260; 74177; 82565

== ENCOUNTER 2019-05-19 11:36 | Day surgery (SDC) | payer MEDICARE, OTHER ==
[2019-05-16 11:57] LABS: ABSOLUTE LYMPHOCYTES (AUTO) 0.2 10^3/uL (0.5-4.7); ABSOLUTE MONOCYTES (AUTO) 0.2 10^3/uL (0.1-1.4); ABSOLUTE NEUT (AUTO) 1.7 10^3/uL (1.7-8.2); BASOPHILS % (AUTO) 1.2 % (0-2); EOSINOPHILS % (AUTO) 0.9 % (0-6); HEMATOCRIT 32.3 % (36.0-47.0); HEMOGLOBIN 11.3 g/dL (12.0-15.5); MEAN CORPUSCULAR HEMOGLOBIN 35.6 pg (27.0-33.4); MEAN CORPUSCULAR HGB CONC 34.9 g/dL (32.0-36.0); MEAN CORPUSCULAR VOLUME 102 fl (80-97); MONOCYTES % (AUTO) 7.8 % (3-13); PLATELET COUNT 131 10^3/uL (150-450); RED BLOOD COUNT 3.16 10^6/uL (3.72-5.28); RED CELL DISTRIBUTION WIDTH 14.3 % (11.5-14.0); SEGMENTED NEUTROPHILS % (AUTO) 80.1 % (42-78); TOTAL CELLS COUNTED % (AUTO) 100 %; WHITE BLOOD COUNT 2.1 10^3/uL (4.0-10.5)
[2019-05-16 12:02] LABS: APPEARANCE,URINE SLIGHTLY-CLOUDY; BILIRUBIN,URINE NEGATIVE (NEGATIVE); COLOR,URINE YELLOW; GLUCOSE, URINE >=500 mg/dL (NEGATIVE); KETONES,URINE TRACE mg/dL (NEGATIVE); LEUKOCYTE ESTERASE,URINE NEGATIVE (NEGATIVE); NITRITE,URINE NEGATIVE (NEGATIVE); PROTEIN,URINE 100 mg/dL (NEGATIVE); URINE SPECIFIC GRAVITY 1.024; UROBILINOGEN,URINE NEGATIVE mg/dL (<2.0)
[2019-05-16 12:02] LABS: INTERNATIONAL RATION (INR) 1.16; PROTHROMBIN TIME 14.9 SEC (11.4-15.4)
[2019-05-16 12:03] LABS: PARTIAL THROMBOPLASTIN TIME 30.3 SEC (23.5-35.8)
[~2019-05-19 11:36] MED LIST changes: +CEFAZOLIN SODIUM 1 GM in DEXTROSE 5%-WATER 50 ML IV PRN; +CLINDAMYCIN 600 MG/D5W RTU 600 MG/50 ML RTUPB IV PRN; -FERUMOXYTOL (NON-ESRD) 510 MG/NS 100 ML IV PRN; +NORMAL SALINE 1000 ML (RENAL PATIENTS) IV PRN; -NORMAL SALINE 250 ML IV PRN
[2019-05-19] MEDS ORDERED: CLINDAMYCIN 600 MG/D5W RTU 600 MG/50 ML RTUPB IV ONE (12:00)
[2019-05-19] MEDS ORDERED: SODIUM BICARBONATE 4.2% INJ (2.5 MEQ/5 ML) VIAL ONE (13:54)
[2019-05-19] MEDS ORDERED: LIDOCAINE 1% INJ-PF (10 MG/ML) 30 ML SDV ONE (13:54)
[2019-05-19] MEDS ORDERED: MIDAZOLAM 2 MG/2 ML INJ ONE (13:56)
[2019-05-19] MEDS ORDERED: PROPOFOL INJ 200 MG/20 ML VIAL IV ONE (13:56)
[2019-05-19] MEDS ORDERED: FENTANYL CITRATE INJ/PF 100 MCG/2 ML AMPUL ONE ×2 (13:56→15:47)
[2019-05-19] MEDS ORDERED: KETAMINE HCL INJ 500 MG/10 ML VIAL ONE (13:59)
[2019-05-19] MEDS ORDERED: ESMOLOL HCL INJ/PF 100 MG/10 ML SDV IV ONE (14:35)
[2019-05-19] MEDS ORDERED: FENTANYL CITRATE INJ/PF 100 MCG/2 ML AMPUL IV PRN ×2 (14:47)
[2019-05-19] MEDS ORDERED: MEPERIDINE HCL/PF INJ 25 MG/1 ML DISP.SYRIN IV PRN (14:47)
[2019-05-19] MEDS ORDERED: PROMETHAZINE HCL INJ 25 MG/1 ML VIAL IV PRN ×2 (14:47)
[2019-05-19] MEDS ORDERED: DIPHENHYDRAMINE HCL 50 MG/ML VIAL IV PRN (14:47)
--- NOTE | 2019-05-19 15:03 | EKG REPORT ---
SEVERITY:- ABNORMAL ECG - SINUS TACHYCARDIA PROBABLE LVH WITH SECONDARY REPOL ABNRM TALL R WAVE IN V2, CONSIDER RVH OR PMI BORDERLINE PROLONGED QT INTERVAL NONSPECIFIC LATERAL ST-T CHANGES : Confirmed by: Levar Abreu MD 19-May-2019 15:02:58
[2019-05-19] MEDS ORDERED: OXYCODONE-ACETAMINOPHEN 5-325 MG TABLET PO PRN (15:37)
[2019-05-19] MEDS ORDERED: CLINDAMYCIN PHOSPHATE INJ 300 MG/2 ML SDV ONE (15:40)
[2019-05-19] MEDS: FENTANYL CITRATE INJ/PF 100 MCG/2 ML AMPUL IV PRN ×2 (15:50→15:55)
--- NOTE | 2019-05-19 16:14 | RADIOLOGY REPORT (SQ) ---
EXAM DESCRIPTION: T SPINE AP/LAT; NO CHG FLUORO COMPLETED DATE/TIME: 05/19/2019 3:47 pm REASON FOR STUDY: KYPHOPLASTY THORACIC SPINE ASST W/ FLUORO IN OR S22.070A WEDGE COMPRESSION FRACTU RE OF T9-T10 VERTEBRA, INIT S22.080A WEDGE COMPRESSION FRACTURE OF T11-T12 VERTEBRA, INI Z79.899 OT HER RESIDENTIAL (CURRENT) DRUG THERAPY COMPARISON: MRI thoracic spine 04/12/2019 CT chest 02/20/2019 FLUOROSCOPY TIME: 5.9 minutes 40 digital fluoro images saved to PACS. TECHNIQUE: Intra-operative images acquired during surgical procedure to evaluate progress. NUMBER OF IMAGES: 40 digital fluoroscopic images saved to pac's LIMITATIONS: None. FINDINGS: Intra procedural imaging and fluoro during kyphoplasty. Please see the operative report f or further details IMPRESSION: IMAGE(S) OBTAINED DURING PROCEDURE. COMMENT: Quality ID 145: Final reports for procedures using fluoroscopy that document radiation exp osure indices, or exposure time and number of fluorographic images (if radiation exposure indices are not available) Please consult full operative report of the attending physician for description of the procedure. TECHNICAL DOCUMENTATION: JOB ID: [id number] [employer]- All Rights Reserved Reading location - IP/workstation name: [email or web address]
--- NOTE | 2019-05-19 16:14 | RADIOLOGY REPORT (SQ) ---
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 TECHNIQUE: Intra-operative images acquired during surgical procedure to evaluate progress. NUMBER OF IMAGES: 40 digital fluoroscopic images saved to pac's LIMITATIONS: None. FINDINGS: Intra procedural imaging and fluoro during kyphoplasty. Please see the operative report f or further details IMPRESSION: IMAGE(S) OBTAINED DURING PROCEDURE. COMMENT: Quality ID [id number]: Final reports for procedures using fluoroscopy that document radiation exp osure indices, or exposure time and number of fluorographic images (if radiation exposure indices are not available) Please consult full operative report of the attending physician for description of the procedure. TECHNICAL DOCUMENTATION: JOB ID: [id number] [email or web address]- All Rights Reserved Reading location - IP/workstation name: [email or web address]
[2019-05-19] MEDS ORDERED: ONDANSETRON HCL INJ/PF 4 MG/2 ML SDV ONE (17:28)
[2019-05-19] MEDS ORDERED: PHENYLEPHRINE HCL INJ/PF 10 MG/1 ML SDV ONE (17:59)
[2019-05-19 18:06] VITALS: BP 135/67
--- NOTE | 2019-05-19 18:30 | EKG REPORT ---
SEVERITY:- ABNORMAL ECG - SINUS TACHYCARDIA PROBABLE LVH WITH SECONDARY REPOL ABNRM : Confirmed by: Levar Abreu MD 19-May-2019 18:29:28
--- NOTE | 2019-06-25 09:33 | Operative Report ---
Operative Report DATE OF SURGERY: 05/19/19 PREOPERATIVE DIAGNOSIS: Compression fracture T9 and T12 with intractable pain s econdary to metastatic disease POSTOPERATIVE DIAGNOSIS: Family OPERATION: T9 and T12 osteo-cool kyphoplasty under fluoroscopic guidance SURGEON: LILIYA CARR ANESTHESIA: LMAC TISSUE REMOVED OR ALTERED: None COMPLICATIONS: None ESTIMATED BLOOD LOSS: Minimal PROCEDURE: After obtaining informed consent patient was taken to the operating room placed comfortably in the prone position. Comfort was assessed visually and verbally. MAC anesthesia was administered after monitors were applied. Patient was then prepped and draped in usual fashion with chlorhexidine with appropriate drying time. Fluoroscopy had been set up in the AP and lateral views to assist in guiding the proper a small incision was then made in the anesthetized region. Beginning at the T9 level entrance sites were selected for transpedicular approaches. The skin was anesthetized with 1% Express trochars were then inserted sequentially taking multiple fluoroscopic views to enter into the vertebral body of T9. Drill was then placed and removed and the osteo-cool probes were then inserted. While the Osteocool was occurring at T9 attention was directed towards the T12 region. T 12 was addressed in the same fashion with bilateral para pedicular approaches. Prep area and location of the fractures. Once the Osteocut was completed at T9 the probes were removed and placed into the T12 cannulas. Express balloons were then placed in the T9 cannulas and inflated kyphoplasty was then performed. Filling of the vertebral bodies occurred without any extravasation. When the Osteocut was completed at T12 the probes were removed balloons were inflated cavities were filled with cement as described above. And no extravasation of cement was noted with filling occurred. Stylets were placed on all the cars and the trochars were removed sequentially. Wounds were then cleansed dressed and the patient was returned to the PACU for further postoperative care and monitoring.
== END 2019-05-19 17:45 | disposition home or self-care (01) ==
LOC: OROUT 11:36
PROVIDERS: ATTEND Pain Medicine Interventional Pain Medicine
DX: S22.070A Wedge compression fracture of T9-T10 vertebra, initial encounter for closed fracture (principal); S22.080A Wedge compression fracture of T11-T12 vertebra, initial encounter for closed fracture; X58.XXXA Exposure to other specified factors, initial encounter; Z79.899 Other long term (current) drug therapy; Z79.01 Long term (current) use of anticoagulants; Z79.51 Long term (current) use of inhaled steroids; J45.909 Unspecified asthma, uncomplicated; E11.9 Type 2 diabetes mellitus without complications; Z88.0 Allergy status to penicillin; Z91.040 Latex allergy status; M54.6 Pain in thoracic spine; C50.911 Malignant neoplasm of unspecified site of right female breast; G62.9 Polyneuropathy, unspecified
CPT/HCPCS: 22513; 22515; 36415; 82962; 85025; 85610; 85730; 81001; 72070; 93005; 93010; 01936; C1713; J2250; J3490 ×5; J3010; J2370; J2405; J2704; 1936

== ENCOUNTER → 2019-07-24 | Outpatient (CLI) | payer MEDICARE, OTHER ==
--- NOTE | 2019-07-24 10:12 | RADIOLOGY REPORT (SQ) ---
EXAM DESCRIPTION: MRI HEAD COMBO COMPLETED DATE/TIME: 07/24/2019 9:42 am REASON FOR STUDY: MALIG NEOPLM OF UPPER-OUTER QUADRANT OF RIGHT FEMALE BREAST C50.411 MALIG NEOPLM OF UPPER-OUTER QUADRANT OF RIGHT FEMALE COMPARISON: Prior bone scan dated 11/22/2018 TECHNIQUE: Multiplanar imaging includes noncontrasted T1, T2, FLAIR, diffusion with ADC map and post gadolinium contrast T1 sequences. Images stored on PACS. CONTRAST TYPE AND DOSE: 10 mL Dotarem. RENAL FUNCTION: Not indicated. ACR Type II contrast agent associated with few, if any, unconfounded cases of NSF LIMITATIONS: None. FINDINGS: ANATOMY: No anomalies. Normal vascular flow voids. Pituitary fossa normal. CSF SPACES: Normal in size and contour. No hemorrhage. CEREBRUM: There is a focal area of vasogenic edema in the left posterior frontal lobe. There is an a pproximately 8.3 mm heterogeneously enhancing mass consistent with metastatic disease. No midline sh ift. There is mild mass effect from the vasogenic edema. On series 1000, image 24 there is a focal 2.3 cm area of enhancement. No significant edema most likely this represents vessel but small metast atic focus cannot be excluded. POSTERIOR FOSSA: No signal alteration. No hemorrhage. No edema, masses, or mass effect. Internal jhon tory canals, cerebellopontine angles, mastoids normal. No enhancing lesions. No abnormal enhancement post contrast. DIFFUSION IMAGING: Negative for acute or subacute infarction. ORBITS: No masses. Globes normal. PARANASAL SINUSES: There is a retention cyst or polyp in the left maxillary sinus. OTHER: There is enhancing lesion in the left frontal bone. This is consistent with the metastasis de monstrated on prior bone scan. This measures 11.6 mm in diameter. There is subtle enhancement the r ight parietal bone and developing metastatic focus cannot be excluded. This is best demonstrated on series 1000, image 24 IMPRESSION: Findings are consistent with metastatic disease with enhancing 8.3 mm lesion in the left posterior frontal lobe with fairly extensive surrounding edema. No midline shift. Questionable 2nd lesion in the high left frontal lobe measured 2.3 mm although this could represent vascular structur e. This is best demonstrated on series 1000, image 24. Bony metastatic disease in the left frontal bone. Questionable developing lesion in the right pariet al bone. EVIDENCE OF ACUTE STROKE: NO. TECHNICAL DOCUMENTATION: JOB ID: [id number] [employer]- All Rights Reserved Reading location - IP/workstation name: [email or web address]
== END ==
LOC: RAD 08:21
PROVIDERS: ATTEND Internal Medicine
DX: C50.411 Malignant neoplasm of upper-outer quadrant of right female breast (principal)
CPT/HCPCS: 82565; 70553; A9576

== ENCOUNTER 2019-07-25 15:38 | Observation (INO) | payer MEDICARE, OTHER ==
--- NOTE | 2019-07-25 15:54 | ER Document Report ---
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 They states she states that the home health nurse came to the house and her sugar was over 500. She was sent to the emergency room to be evaluated. TRAVEL OUTSIDE OF THE [place] IN LAST 30 DAYS: No - Related Data Allergies/Adverse Reactions: benzalkonium chloride [From Merthiolate (benzalkonium)] Allergy (Unknown, Verified 07/25/19 15:51) nickel Allergy (Unknown, Verified 07/25/19 15:51) latex Allergy (Verified 07/25/19 15:51) Penicillins Allergy (Verified 07/25/19 15:51) BEES Allergy (Mild, Uncoded 07/25/19 15:51) Past Medical History - Past Medical History Cardiac Medical History: Denies: Hx Coronary Artery Disease, Hx Heart Attack, Hx Hypertension Pulmonary Medical History: Reports: Hx Asthma - MILD, Hx Pneumonia Denies: Hx Bronchitis, Hx COPD Neurological Medical History: Denies: Hx Cerebrovascular Accident, Hx Seizures Endocrine Medical History: Reports: Hx Diabetes Mellitus Type 2 Renal/ Medical History: Denies: Hx Peritoneal Dialysis Malignancy Medical History: Reports: Hx Breast Cancer, Hx Skin Cancer GI Medical History: Denies: Hx Hepatitis, Hx Hiatal Hernia, Hx Ulcer Musculoskeltal Medical History: Reports Hx Arthritis - OSTEO, HANDS, KNEES Psychiatric Medical History: Denies: Hx Depression Infectious Medical History: Denies: Hx Hepatitis Past Surgical History: Reports: Hx Appendectomy, Hx Breast Surgery, Hx Hysterectomy, Hx Orthopedic Surgery, Hx Tonsillectomy - addnoids, Other - Breast lumpectomy. Denies: Hx Mastectomy - LUMPECTOMY NO MASTECTOMY, Hx Open Heart Surgery, Hx Pacemaker - Immunizations Hx Diphtheria, Pertussis, Tetanus Vaccination: No Physical Exam - Vital signs Vitals: Temp Pulse Resp BP Pulse Ox 98.4 F 111 H 18 151/53 H 91 L 07/25/19 15:45 07/25/19 15:45 07/25/19 15:45 07/25/19 15:45 07/25/19 15:45 Course - Vital Signs Vital signs: Temp Pulse Resp BP Pulse Ox 98.4 F 111 H 18 151/53 H 91 L 07/25/19 15:45 07/25/19 15:45 07/25/19 15:45 07/25/19 15:45 07/25/19 15:45 Doctor's Discharge - Discharge Referrals: THANH QUIROS MD [Primary Care Provider] - Follow up as needed
[2019-07-25] MEDS ORDERED: NORMAL SALINE 1000 ML 1,000 ML IV ONE (15:55)
[2019-07-25] MEDS: DEXAMETHASONE SOD PHOS INJ 10 MG/1 ML VIAL IV ONE ×2 (16:46→17:20)
--- NOTE | 2019-07-25 16:55 | ER Document Report ---
ED General - General Chief Complaint: High Blood Sugar Stated Complaint: ABNORMAL LABS Time Seen by Provider: 07/25/19 15:52 Primary Care Provider: THANH QUIROS MD [Primary Care Provider] - Follow up as needed Mode of Arrival: Ambulatory Notes: 78-year-old female presents with high blood sugar. She feels dehydrated, is drinking plenty of fluids but says that she is not taking her insulin because she not eating much. She not eating much because she is nauseous. She is nauseous because she has metastatic cancer to the brain. She has not started steroids yet. [facility] is no longer working for her. Dysuria hematuria or other urinary symptoms. Denies abdominal pain. TRAVEL OUTSIDE OF THE [place] IN LAST 30 DAYS: No - Related Data Allergies/Adverse Reactions: benzalkonium chloride [From Merthiolate (benzalkonium)] Allergy (Unknown, Verified 07/25/19 15:51) nickel Allergy (Unknown, Verified 07/25/19 15:51) latex Allergy (Verified 07/25/19 15:51) Penicillins Allergy (Verified 07/25/19 15:51) BEES Allergy (Mild, Uncoded 07/25/19 15:51) Past Medical History - General Information source: Patient - Social History Smoking Status: Former Smoker Family History: Reviewed & Not Pertinent, Malignancy Patient has suicidal ideation: No Patient has homicidal ideation: No - Past Medical History Cardiac Medical History: Denies: Hx Coronary Artery Disease, Hx Heart Attack, Hx Hypertension Pulmonary Medical History: Reports: Hx Asthma - MILD, Hx Pneumonia Denies: Hx Bronchitis, Hx COPD Neurological Medical History: Denies: Hx Cerebrovascular Accident, Hx Seizures Endocrine Medical History: Reports: Hx Diabetes Mellitus Type 2 Renal/ Medical History: Denies: Hx Peritoneal Dialysis Malignancy Medical History: Reports: Hx Breast Cancer, Hx Skin Cancer GI Medical History: Denies: Hx Hepatitis, Hx Hiatal Hernia, Hx Ulcer Musculoskeletal Medical History: Reports Hx Arthritis - OSTEO, HANDS, KNEES Psychiatric Medical History: Denies: Hx Depression Infectious Medical History: Denies: Hx Hepatitis Past Surgical History: Reports: Hx Appendectomy, Hx Breast Surgery, Hx Hysterectomy, Hx Orthopedic Surgery, Hx Tonsillectomy - addnoids, Other - Breast lumpectomy. Denies: Hx Mastectomy - LUMPECTOMY NO MASTECTOMY, Hx Open Heart Valverde rgery, Hx Pacemaker - Immunizations Hx Diphtheria, Pertussis, Tetanus Vaccination: No Review of Systems - Review of Systems Notes: REVIEW OF SYSTEMS GEN: Denies fever, chills, weight loss ENT: Denies sore throat, nasal discharge, ear pain EYES: Denies blurry vision, eye pain, discharge CV: Denies chest pain, palpitations, edema RESP: Denies cough, shortness of breath, wheezing GI: Nausea vomiting a MSK: Denies joint pain/swelling, edema, SKIN: Denies rash, skin lesions LYMPH: Denies swollen glands/lymph nodes NEURO: Headache PSYCH: Denies depression, suicidal or homicidal ideation PHYSICAL EXAMINATION General: No acute distress, well-nourished Head: Atraumatic, normocephalic ENT: Mouth normal, oropharynx moist, no exudates or tonsillar enlargement Eyes: Conjunctiva normal, pupils equal, lids normal Neck: No JVD, supple, no guarding CVS: Normal rate, regular rhythm, no murmurs Resp: No resp distress, equal and normal breath sounds bilaterally GI: Nondistended, soft, no tenderness to palpation, no rebound or guarding Ext: No deformities, no edema, normal range of motion in upper and lower ext Back: No CVA or midline TTP Skin: No rash, warm Lymphatic: No lymphadeopathy noted Neuro: Awake, alert. Face symmetric. GCS 15. Physical Exam - Vital signs Vitals: Temp Pulse Resp BP Pulse Ox 98.4 F 111 H 18 151/53 H 91 L 07/25/19 15:45 07/25/19 15:45 07/25/19 15:45 07/25/19 15:45 07/25/19 15:45 Course - Re-evaluation Re-evalutation: 07/25/19 17:46 High blood sugar in the setting of insulin mismatch, metastatic cancer and need for steroids Looks well despite brain mets Hypokalemicordered potassium replacement and fluids. Will hold off on insulin now given potassium and defer that to the hospitalist. Ordered Decadron. Discussed with Dr. Lizet Prabhakar Discussed with Dr. Hicks and Mariam Jarrell who will admit. - Vital Signs Vital signs: Temp Pulse Resp BP Pulse Ox 98.4 F 111 H 18 151/53 H 91 L 07/25/19 15:45 07/25/19 15:45 07/25/19 15:45 07/25/19 15:45 07/25/19 15:45 - Laboratory Result Diagrams: 07/25/19 16:40 07/25/19 16:40 Laboratory results interpreted by me: 07/25/19 07/25/19 07/25/19 16:00 16:40 16:40 WBC 3.1 L RBC 2.20 L Hgb 7.8 L Hct 22.7 L MCV 104 H MCH 35.4 H RDW 15.5 H Plt Count 105 L Lymph % (Auto) 8.9 L Whitley % (Auto) 16.2 H Absolute Lymphs (auto) 0.3 L Sodium 130.4 L Potassium 2.7 L* Chloride 88 L Carbon Dioxide 34 H Glucose 482 H* Alkaline Phosphatase 148 H Total Protein 6.0 L Albumin 3.4 L Urine Protein 30 H Urine Glucose (UA) >=500 H Urine Ketones TRACE H Discharge - Discharge Clinical Impression: Hyperglycemia Condition: Good Disposition: ADMITTED INPATIENT Admitting Provider: Justin (Hospitalist) Unit Admitted: I[facility]U Referrals: THANH QUIROS MD [Primary Care Provider] - Follow up as needed
[2019-07-25 17:01] LABS: APPEARANCE,URINE CLEAR; BILIRUBIN,URINE NEGATIVE (NEGATIVE); COLOR,URINE STRAW; GLUCOSE, URINE >=500 mg/dL (NEGATIVE); KETONES,URINE TRACE mg/dL (NEGATIVE); PROTEIN,URINE 30 mg/dL (NEGATIVE); URINE SPECIFIC GRAVITY 1.018; UROBILINOGEN,URINE NEGATIVE mg/dL (<2.0)
[2019-07-25 17:03] LABS: ABSOLUTE LYMPHOCYTES (AUTO) 0.3 10^3/uL (0.5-4.7); ABSOLUTE MONOCYTES (AUTO) 0.5 10^3/uL (0.1-1.4); ABSOLUTE NEUT (AUTO) 2.3 10^3/uL (1.7-8.2); BASOPHILS % (AUTO) 0.8 % (0-2); EOSINOPHILS % (AUTO) 0.3 % (0-6); HEMATOCRIT 22.7 % (36.0-47.0); LYMPHOCYTES % (AUTO) 8.9 % (13-45); MEAN CORPUSCULAR HEMOGLOBIN 35.4 pg (27.0-33.4); MEAN CORPUSCULAR HGB CONC 34.3 g/dL (32.0-36.0); MEAN CORPUSCULAR VOLUME 104 fl (80-97); MONOCYTES % (AUTO) 16.2 % (3-13); PLATELET COUNT 105 10^3/uL (150-450); RED CELL DISTRIBUTION WIDTH 15.5 % (11.5-14.0); SEGMENTED NEUTROPHILS % (AUTO) 73.8 % (42-78); TOTAL CELLS COUNTED % (AUTO) 100 %; WHITE BLOOD COUNT 3.1 10^3/uL (4.0-10.5)
[2019-07-25 17:04] LABS: HEMOGLOBIN 7.8 g/dL (12.0-15.5)
[2019-07-25 17:12] LABS: ALBUMIN 3.4 g/dL (3.5-5.0); ALKALINE PHOSPHATASE 148 U/L (38-126); ANION GAP 8 (5-19); ASPARTATE AMINO TRANSFERASE 29 U/L (14-36); BILIRUBIN,DIRECT 0.3 mg/dL (0.0-0.4); BILIRUBIN,TOTAL 0.8 mg/dL (0.2-1.3); BLOOD UREA NITROGEN 8 mg/dL (7-20); CALCIUM 8.7 mg/dL (8.4-10.2); CARBON DIOXIDE 34 mmol/L (22-30); CHLORIDE 88 mmol/L (98-107)
[2019-07-25 17:19] LABS: GLUCOSE 482 mg/dL (75-110)
[2019-07-25 17:20] LABS: POTASSIUM 2.7 mmol/L (3.6-5.0)
[2019-07-25] MEDS: POTASSI CL 20 MEQ/50 ML RIDER 20 MEQ/50 ML RTUPB IV SCH ×2 (17:44→19:07)
[2019-07-25] MEDS ORDERED: MAG HYDROX/AL HYDROX/SIMETH SUSP 30 ML UDCUP PO PRN (18:37)
[2019-07-25] MEDS ORDERED: ONDANSETRON HCL INJ/PF 4 MG/2 ML SDV IV PRN (18:37)
[2019-07-25] MEDS ORDERED: PROMETHAZINE HCL INJ 25 MG/1 ML VIAL IV PRN (18:37)
[2019-07-25] MEDS ORDERED: ACETAMINOPHEN 325 MG TABLET PO PRN (18:37)
[2019-07-25] MEDS ORDERED: POTASSI CL 20 MEQ/NS 1L 1,000 ML IV PRN (18:37)
[2019-07-25] MEDS ORDERED: ALBUTEROL SULFATE 0.083% NEB 2.5 MG/3 ML AMPUL NEB PRN (18:37)
[2019-07-25] MEDS ORDERED: INSULIN LISPRO 100 UNIT/ML 3 ML VIAL SUBCUT ONE (18:41)
[2019-07-25] MEDS ORDERED: DEXTROSE 40% GEL 15 GM TUBE PO PRN ×2 (18:41)
[2019-07-25] MEDS ORDERED: DEXTROSE 50%-WATER 25 GM/50 ML DISP.SYRIN IV PRN ×2 (18:41)
[2019-07-25] MEDS ORDERED: GLUCAGON,HUMAN RECOMB 1 MG INJ IM PRN (18:41)
[2019-07-25] MEDS ORDERED: POTASSIUM CHLORIDE 10 MEQ TABLET.ER PO ONE ×3 (18:42→23:39)
[2019-07-25] MEDS ORDERED: NORMAL SALINE 250 ML IV PRN ×2 (18:43)
--- NOTE | 2019-07-25 18:58 | PDOC H&P ---
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 Evaluation in the emergency department revealed mild tachycardia, hypertension, pancytopenia (WBC 3.1, Hgb 7.8, PLT 105), hyponatremia, hypokalemia, elevated bicarb, glucose of 482 but normal anion gap, trace ketones but negative urinalysis. She was provided antiemetics, IV Decadron, normal saline bolus, and K riders. She is referred to the hospitalist service for admission and management of the above-stated complaints. Prior to excepting the patient, the lead physician did speak with Dr. Quiros who reports that plan is to medically stabilize the patient and then arrange for outpatient neurosurgery evaluation for possible gamma knife. Past Medical History Cardiac Medical History: Reports: Hypertension Denies: Congestive Heart Failure, Coronary Artery Disease, Myocardial Infarction Pulmonary Medical History: Reports: Asthma - MILD, Pneumonia Denies: Bronchitis, Chronic Obstructive Pulmonary Disease (COPD) EENT Medical History: Reports: None Neurological Medical History: Reports: Other - New dx brain met Denies: Seizures Endocrine Medical History: Reports: Diabetes Mellitus Type 2 - insulin dependent Denies: Hypothyroidism Renal/ Medical History: Reports: None Malignancy Medical History: Reports: Breast Cancer - bone and brain mets, Skin Cancer GI Medical History: Reports: None Musculoskeltal Medical History: Reports: Arthritis - OSTEO, HANDS, KNEES Skin Medical History: Reports: None Psychiatric Medical History: Denies: Depression, Tobacco Dependency Hematology: Reports: Anemia Denies: Sickle Cell Disease Past Surgical History Past Surgical History: Reports: Appendectomy, Hysterectomy, Orthopedic Surgery - kyphoplasty, Tonsillectomy - addnoids, Other - Breast lumpectomy Denies: Amputation, Mastectomy - LUMPECTOMY NO MASTECTOMY, Pacemaker Social History Information Source: Patient Lives with: Family Smoking Status: Former Smoker Frequency of Alcohol Use: Rare Hx Recreational Drug Use: No Drugs: None Hx Prescription Drug Abuse: No - Advance Directive Resuscitation Status: Full Code Family History Family History: Reviewed & Not Pertinent, Malignancy Parental Family History Reviewed: Yes Children Family History Reviewed: Yes Sibling(s) Family History Reviewed.: Yes Medication/Allergy Allergies/Adverse Reactions: benzalkonium chloride [From Merthiolate (benzalkonium)] Allergy (Unknown, Verified 07/25/19 15:51) nickel Allergy (Unknown, Verified 07/25/19 15:51) latex Allergy (Verified 07/25/19 15:51) Penicillins Allergy (Verified 07/25/19 15:51) BEES Allergy (Mild, Uncoded 07/25/19 15:51) Review of Systems Constitutional: ABSENT: chills, fever(s), headache(s), weight gain, weight loss Eyes: ABSENT: visual disturbances Ears: ABSENT: hearing changes Cardiovascular: ABSENT: chest pain, dyspnea on exertion, edema, orthropnea, palpitations Respiratory: ABSENT: cough, hemoptysis Gastrointestinal: PRESENT: nausea, vomiting. ABSENT: abdominal pain, c onstipation, diarrhea, hematemesis, hematochezia Genitourinary: ABSENT: dysuria, hematuria Musculoskeletal: ABSENT: joint swelling Integumentary: ABSENT: rash, wounds Neurological: PRESENT: dizziness. ABSENT: abnormal gait, abnormal speech, confusion, focal weakness, syncope Psychiatric: ABSENT: anxiety, depression, homidical ideation, suicidal ideation Endocrine: ABSENT: cold intolerance, heat intolerance, polydipsia, polyuria Hematologic/Lymphatic: ABSENT: easy bleeding, easy bruising Physical Exam Vital Signs: Temp Pulse Resp BP Pulse Ox 98.4 F 111 H 14 156/80 H 98 07/25/19 15:45 07/25/19 15:45 07/25/19 18:01 07/25/19 18:01 07/25/19 18:01 Intake & Output 07/24/19 07/25/19 07/26/19 06:59 06:59 06:59 Intake Total 1000 Balance 1000 Weight 65.4 kg General appearance: PRESENT: no acute distress, cooperative, well-developed, well-nourished Head exam: PRESENT: atraumatic, normocephalic Eye exam: PRESENT: conjunctiva pink, EOMI, PERRLA. ABSENT: scleral icterus Ear exam: PRESENT: normal external ear exam Mouth exam: PRESENT: moist, tongue midline Neck exam: ABSENT: carotid bruit, JVD, lymphadenopathy, thyromegaly Respiratory exam: PRESENT: clear to auscultation debbie, symmetrical, unlabored. ABSENT: rales, rhonchi, wheezes Cardiovascular exam: PRESENT: RRR, +S1, +S2, tachycardia - HR 110-120. ABSENT: diastolic murmur, rubs, systolic murmur Pulses: PRESENT: normal dorsalis pedis pul Vascular exam: PRESENT: normal capillary refill GI/Abdominal exam: PRESENT: normal bowel sounds, soft. ABSENT: distended, guarding, mass, organolmegaly, rebound, tenderness Rectal exam: PRESENT: deferred Extremities exam: PRESENT: full ROM. ABSENT: calf tenderness, clubbing, pedal edema Neurological exam: PRESENT: alert, awake, oriented to person, oriented to place, oriented to time, oriented to situation, CN II-XII grossly intact. ABSENT: motor sensory deficit Psychiatric exam: PRESENT: appropriate affect, normal mood. ABSENT: homicidal ideation, suicidal ideation Skin exam: PRESENT: dry, intact, warm. ABSENT: cyanosis, rash Results Laboratory Results: 07/25/19 16:40 07/25/19 16:40 07/25/19 07/25/19 07/25/19 16:00 16:40 16:40 WBC 3.1 L RBC 2.20 L Hgb 7.8 L Hct 22.7 L MCV 104 H MCH 35.4 H MCHC 34.3 RDW 15.5 H Plt Count 105 L Seg Neutrophils % 73.8 Sodium 130.4 L Potassium 2.7 L* Chloride 88 L Carbon Dioxide 34 H Anion Gap 8 BUN 8 Creatinine 0.75 Est GFR ( Amer) > 60 Glucose 482 H* Calcium 8.7 Total Bilirubin 0.8 AST 29 Alkaline Phosphatase 148 H Total Protein 6.0 L Albumin 3.4 L Urine Color STRAW Urine Appearance CLEAR Urine pH 6.0 Ur Specific [place] 1.018 Urine Protein 30 H Urine Glucose (UA) >=500 H Urine Ketones TRACE H Urine Blood NEGATIVE Urine RBC (Auto) 0 Assessment and Plan - Diagnosis (1) Intractable nausea and vomiting Is this a current diagnosis for this admission?: Yes Plan: Patient is admitted to the medical floor on continuous cardiac telemetry. She is provided normal saline bolus by ED provider. We will continue maintenance IV fluids. Antiemetics as needed. IV Decadron for new diagnosis of brain metastasis with surrounding edema. Diet as tolerated. (2) Hyponatremia Is this a current diagnosis for this admission?: Yes Plan: Secondary to #1 Management as above. Follow up chemistry. (3) Hypokalemia Is this a current diagnosis for this admission?: Yes Plan: Secondary to #1. Received 40 M EQ's via IV by ED provider. We will provide another 40 M EQ's p.o. potassium. Continue NS/KCL 20 Follow up chemistry. (4) Diabetes mellitus Qualifiers: Diabetes mellitus type: type 2 Diabetes mellitus complication status: without complication Is this a current diagnosis for this admission?: Yes Plan: Consistent carb diet. Accu-Cheks before meals and at bedtime with Humalog for sliding scale coverage. Generous IV fluids. Hypoglycemia protocol. A1c pending. (5) HTN (hypertension) Qualifiers: Hypertension type: essential hypertension Qualified Code(s): I10 - Essential (primary) hypertension Is this a current diagnosis for this admission?: Yes Plan: We will resume home medication regiment once reconciled. (6) Breast cancer metastasized to brain Qualifiers: Laterality: right Qualified Code(s): C50.911 - Malignant neoplasm of unspecified site of right female breast; C79.31 - Secondary malignant neoplasm of brain Is this a current diagnosis for this admission?: Yes Plan: Followed by Dr. Quiros as an outpatient. Consider consultation if patient has an extended admission. Absolute neutrophil 2.3; does not require protective precautions at this time but will monitor closely. (7) Anemia Qualifiers: Anemia type: other cause Is this a current diagnosis for this admission?: Yes Plan: Likely chemotherapy related. We will provide 2 units irradiated PRBC Monitor for evidence of bleeding. Hold DVT prophylaxis. Follow-up CBC. - Time Time Spent with patient: 35 or more minutes Medications reviewed and adjusted accordingly: Yes Anticipated discharge: Home Within: within 48 hours
[2019-07-25] MEDS: INSULIN LISPRO 100 UNIT/ML 3 ML VIAL SUBCUT SCH (21:09)
[2019-07-25] MEDS: DEXAMETHASONE SOD PHOS INJ 10 MG/1 ML VIAL IV SCH (21:15)
[2019-07-25] MEDS: FAMOTIDINE INJ/PF 20 MG/2 ML SDV IV SCH (21:21)
[2019-07-25] MEDS: OXYCODONE-ACETAMINOPHEN 5-325 MG TABLET PO PRN (23:43)
[2019-07-26] MEDS ORDERED: INSULIN LISPRO 100 UNIT/ML 3 ML VIAL SUBCUT ONE (06:30)
[2019-07-26] MEDS: DEXAMETHASONE SOD PHOS INJ 10 MG/1 ML VIAL IV SCH (06:53)
[2019-07-26] MEDS: INSULIN LISPRO 100 UNIT/ML 3 ML VIAL SUBCUT SCH ×4 (08:25→21:34)
--- NOTE | 2019-07-26 08:37 | PDOC CONSULTATION ---
Consultation Consult Date: 07/26/19 Attending physician:: BELL HAWKINS Provider Consulted: THANH QUIROS Consult reason:: Patient with known history of stage IV breast cancer with bone metastasis here with brain mets new History of Present Illness Admission Date/PCP: 07/25/19 17:39 THANH QUIROS MD Patient complains of: Intractable nausea and vomiting, confusion, weakness History of Present Illness: KIM CROSS is a 78 year old female with 7 to 10-day history of intractable nausea and vomiting, patient saw us in office last week and we gave her fluids and antiemetics, set her up for MRI of the brain which was done on 07/24/2019, this unfortunately indicated the appearance of 2 new brain lesions, she has not had disease in the brain yet, the largest was 7-8 mm with considerable surrounding edema. We tried to get her into the office yesterday but patient was too weak so ultimately was taken to ED, there she was given hydration antiemetics as well as 10 mg of IV dexamethasone, about 4 to 6 hours after getting the IV dexamethasone she started feeling a lot better, this morning she is hungry again and eating, she looks almost back to baseline. However blood sugars have been out of control. Past Medical History Cardiac Medical History: Reports: Hypertension Denies: Congestive Heart Failure, Coronary Artery Disease, Myocardial Infarction Pulmonary Medical History: Reports: Asthma - MILD, Pneumonia Denies: Bronchitis, Chronic Obstructive Pulmonary Disease (COPD) EENT Medical History: Reports: None Neurological Medical History: Reports: Other - New dx brain met Denies: Seizures Endocrine Medical History: Reports: Diabetes Mellitus Type 2 - insulin dependent Denies: Hypothyroidism Renal/ Medical History: Reports: None Malignancy Medical History: Reports: Breast Cancer - bone and brain mets, Skin Cancer GI Medical History: Reports: None Denies: Hepatitis, Hiatal Hernia Musculoskeltal Medical History: Reports: Arthritis - OSTEO, HANDS, KNEES Skin Medical History: Reports: None Psychiatric Medical History: Denies: Depression, Tobacco Dependency Hematology: Reports: Anemia Denies: Sickle Cell Disease Past Surgical History Past Surgical History: Reports: Appendectomy, Hysterectomy, Orthopedic Surgery - kyphoplasty, Tonsillectomy - addnoids, Other - Breast lumpectomy Denies: Amputation, Mastectomy - LUMPECTOMY NO MASTECTOMY, Pacemaker Social History Information Source: Patient Lives with: Family Smoking Status: Former Smoker Electronic Cigarette use?: No Frequency of Alcohol Use: Rare Hx Recreational Drug Use: No Drugs: None Hx Prescription Drug Abuse: No - Advance Directive Resuscitation Status: Full Code Family History Family History: Reviewed & Not Pertinent, Malignancy Parental Family History Reviewed: Yes Children Family History Reviewed: Yes Sibling(s) Family History Reviewed.: Yes Medication/Allergy Home Medications: Acetaminophen [Acetaminophen Extra Strength] 500 mg PO Q4HP PRN 07/25/19 Exemestane 25 mg PO QAM 07/25/19 Gabapentin [Neurontin 300 mg Capsule] 300 mg PO BID 07/25/19 Insulin Detemir [Levemir] 130 units SQ DAILY 07/25/19 Lisinopril [Zestril] 5 mg PO QAM 07/25/19 Metformin HCl [Metformin HCl ER] 500 mg PO BID 07/25/19 Morphine Sulfate [Ms-Contin Sr 15 mg Tablet] 15 mg PO BIDP PRN 07/25/19 Omeprazole 40 mg PO QAM 07/25/19 Oxycodone HCl [Roxicodone] 10 mg PO Q4HP PRN 07/25/19 Ranitidine HCl [Zantac] 150 mg PO BID 07/25/19 Simvastatin 20 mg PO QPM 07/25/19 Allergies/Adverse Reactions: benzalkonium chloride [From Merthiolate (benzalkonium)] Allergy (Unknown, Verified 07/25/19 15:51) nickel Allergy (Unknown, Verified 07/25/19 15:51) latex Allergy (Verified 07/25/19 15:51) Penicillins Allergy (Verified 07/25/19 15:51) BEES Allergy (Mild, Uncoded 07/25/19 15:51) Review of Systems Constitutional: ABSENT: chills, fever(s), headache(s), weight gain, weight loss Eyes: ABSENT: visual disturbances Ears: ABSENT: hearing changes Cardiovascular: ABSENT: chest pain, dyspnea on exertion, edema, orthropnea, palpitations Respiratory: ABSENT: cough, hemoptysis Gastrointestinal: ABSENT: abdominal pain, constipation, diarrhea, hematemesis, hematochezia, nausea, vomiting Genitourinary: ABSENT: dysuria, hematuria Musculoskeletal: ABSENT: joint swelling Integumentary: ABSENT: rash, wounds Neurological: ABSENT: abnormal gait, abnormal speech, confusion, dizziness, focal weakness, syncope Psychiatric: ABSENT: anxiety, depression, homidical ideation, suicidal ideation Endocrine: ABSENT: cold intolerance, heat intolerance, polydipsia, polyuria Hematologic/Lymphatic: ABSENT: easy bleeding, easy bruising Physical Exam Vital Signs: Temp Pulse Resp BP Pulse Ox 97.6 F 115 H 16 148/73 H 94 07/26/19 07:21 07/26/19 07:21 07/26/19 07:21 07/26/19 07:21 07/26/19 07:21 Intake & Output 07/25/19 07/26/19 07/27/19 06:59 06:59 06:59 Intake Total 1375 Output Total 1100 Balance 275 Weight 67.2 kg General appearance: PRESENT: no acute distress, well-developed, well-nourished Head exam: PRESENT: atraumatic, normocephalic Eye exam: PRESENT: conjunctiva pink, EOMI, PERRLA. ABSENT: scleral icterus Ear exam: PRESENT: normal external ear exam Mouth exam: PRESENT: moist, tongue midline Neck exam: ABSENT: carotid bruit, JVD, lymphadenopathy, thyromegaly Respiratory exam: PRESENT: clear to auscultation debbie. ABSENT: rales, rhonchi, wheezes Cardiovascular exam: PRESENT: RRR. ABSENT: diastolic murmur, rubs, systolic murmur Pulses: PRESENT: normal dorsalis pedis pul Vascular exam: PRESENT: normal capillary refill GI/Abdominal exam: PRESENT: normal bowel sounds, soft. ABSENT: distended, guarding, mass, organolmegaly, rebound, tenderness Rectal exam: PRESENT: deferred Extremities exam: PRESENT: full ROM. ABSENT: calf tenderness, clubbing, pedal edema Neurological exam: PRESENT: alert, awake, oriented to person, oriented to place, oriented to time, oriented to situation, CN II-XII grossly intact. ABSENT: motor sensory deficit Psychiatric exam: PRESENT: appropriate affect, normal mood. ABSENT: homicidal ideation, suicidal ideation Skin exam: PRESENT: dry, intact, warm. ABSENT: cyanosis, rash Results Laboratory Results: 07/25/19 16:40 07/25/19 16:40 07/25/19 07/25/19 07/25/19 16:00 16:40 16:40 WBC 3.1 L RBC 2.20 L Hgb 7.8 L Hct 22.7 L MCV 104 H MCH 35.4 H MCHC 34.3 RDW 15.5 H Plt Count 105 L Seg Neutrophils % 73.8 Sodium 130.4 L Potassium 2.7 L* Chloride 88 L Carbon Dioxide 34 H Anion Gap 8 BUN 8 Creatinine 0.75 Est GFR ( Amer) > 60 Glucose 482 H* Calcium 8.7 Total Bilirubin 0.8 AST 29 Alkaline Phosphatase 148 H Total Protein 6.0 L Albumin 3.4 L Urine Color STRAW Urine Appearance CLEAR Urine pH 6.0 Ur Specific [place] 1.018 Urine Protein 30 H Urine Glucose (UA) >=500 H Urine Ketones TRACE H Urine Blood NEGATIVE Urine RBC (Auto) 0 Blood Type Antibody Screen 07/25/19 19:46 WBC RBC Hgb Hct MCV MCH MCHC RDW Plt Count Seg Neutrophils % Sodium Potassium Chloride Carbon Dioxide Anion Gap BUN Creatinine Est GFR ( Amer) Glucose Calcium Total Bilirubin AST Alkaline Phosphatase Total Protein Albumin Urine Color Urine Appearance Urine pH Ur Specific [place] Urine Protein Urine Glucose (UA) Urine Ketones Urine Blood Urine RBC (Auto) Blood Type A POSITIVE Antibody Screen NEGATIVE Assessment & Plan - Diagnosis (1) Secondary malignant melanoma of brain Is this a current diagnosis for this admission?: Yes Plan: Brain metastasis secondary to breast cancer, do not believe patient is a surgical candidate given her functional status but I do believe she will be best managed with gamma knife radiation. Films have been pushed to widened, I have contacted Dr. Dar Sanchez, neurosurgery, e who will be seeing her as an outpatient. Continue with dexamethasone 4 mg every 6 hours. She will need this on discharge as well. Watch her for another 24 hours, and getting physical therapy involved with her today to make sure that her functional status is appropriate for home. I do believe she will be okay for home. (2) Intractable nausea and vomiting Is this a current diagnosis for this admission?: Yes Plan: Secondary to brain mets, resolving (3) Hypokalemia Is this a current diagnosis for this admission?: Yes Plan: Secondary to vomiting, per hospitalist team (4) Breast cancer metastasized to brain Qualifiers: Laterality: right Qualified Code(s): C50.911 - Malignant neoplasm of unspecified site of right female breast; C79.31 - Secondary malignant neoplasm of brain Is this a current diagnosis for this admission?: Yes Plan: She will ultimately continue on her oral therapy as an outpatient (5) Diabetes mellitus Qualifiers: Diabetes mellitus type: type 2 Diabetes mellitus complication status: without complication Is this a current diagnosis for this admission?: Yes Plan: Asked hospitalist team to monitor sugars closely for the next 24 hours as she is on steroids that are worsening them, she will need different insulin dosing, asked hospitalist team to communicate with patient as well as family to ensure that this will be well controlled - Time Time Spent: Greater than 70 Minutes
[2019-07-26] MEDS: GABAPENTIN 300 MG CAPSULE PO SCH ×2 (09:30→21:33)
[2019-07-26] MEDS: DOCUSATE SODIUM 100 MG CAPSULE PO SCH (09:31)
[2019-07-26] MEDS: FAMOTIDINE INJ/PF 20 MG/2 ML SDV IV SCH ×2 (09:47→21:34)
[2019-07-26] MEDS ORDERED: INSULIN GLARGINE,HUM.REC.ANLOG 1,000 UNIT/10 ML VIAL SUBCUT SCH (10:00)
[2019-07-26] MEDS: DEXAMETHASONE 4 MG TABLET PO SCH ×2 (13:03→17:38)
--- NOTE | 2019-07-26 14:08 | PDOC PROGRESS REPORT ---
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 The patient was seen on morning rounds. She was found sitting up to the edge of the bed, comfortably, on room air eating her lunch. She is tolerating a regular diet at this time. She reports that her abdominal discomfort, nausea and vomiting have completely resolved. She also reports resolution of her headache and dizziness. She reports that she is feeling significantly better and is looking forward to a discharge home shortly. She further denies fever, chills, chest pain, palpitations, dyspnea, orthopnea. She has no other questions or concerns at this time. No concerns per nursing. Reason For Visit: INTRACTABLE NAUSEA AND VOMITING,HYPOKALEMIA Physical Exam Vital Signs: Temp Pulse Resp BP Pulse Ox 97.4 F 95 15 153/69 H 95 07/26/19 13:15 07/26/19 13:15 07/26/19 13:15 07/26/19 13:15 07/26/19 13:15 Intake & Output 07/25/19 07/26/19 07/27/19 06:59 06:59 06:59 Intake Total 1375 765 Output Total 1100 650 Balance 275 115 Weight 67.2 kg General appearance: PRESENT: no acute distress, cooperative, well-developed, well-nourished - Overweight Head exam: PRESENT: atraumatic, normocephalic Eye exam: PRESENT: conjunctiva pink, EOMI, PERRLA. ABSENT: scleral icterus Ear exam: PRESENT: normal external ear exam Mouth exam: PRESENT: moist, tongue midline Respiratory exam: PRESENT: clear to auscultation debbie, symmetrical, unlabored. ABSENT: rales, rhonchi, wheezes Cardiovascular exam: PRESENT: RRR. ABSENT: diastolic murmur, rubs, systolic murmur Pulses: PRESENT: normal dorsalis pedis pul Vascular exam: PRESENT: normal capillary refill GI/Abdominal exam: PRESENT: normal bowel sounds, soft. ABSENT: distended, guarding, mass, organolmegaly, rebound, tenderness Rectal exam: PRESENT: deferred Extremities exam: PRESENT: full ROM. ABSENT: calf tenderness, clubbing, pedal edema Musculoskeletal exam: PRESENT: ambulatory Neurological exam: PRESENT: alert, awake, oriented to person, oriented to place, oriented to time, oriented to situation, CN II-XII grossly intact. ABSENT: motor sensory deficit Psychiatric exam: PRESENT: appropriate affect, normal mood. ABSENT: homicidal ideation, suicidal ideation Skin exam: PRESENT: dry, intact, warm. ABSENT: cyanosis, rash Results Laboratory Results: 07/25/19 16:40 07/25/19 16:40 07/25/19 07/25/19 07/25/19 16:00 16:40 16:40 WBC 3.1 L RBC 2.20 L Hgb 7.8 L Hct 22.7 L MCV 104 H MCH 35.4 H MCHC 34.3 RDW 15.5 H Plt Count 105 L Seg Neutrophils % 73.8 Sodium 130.4 L Potassium 2.7 L* Chloride 88 L Carbon Dioxide 34 H Anion Gap 8 BUN 8 Creatinine 0.75 Est GFR ( Amer) > 60 Glucose 482 H* Calcium 8.7 Total Bilirubin 0.8 AST 29 Alkaline Phosphatase 148 H Total Protein 6.0 L Albumin 3.4 L Urine Color STRAW Urine Appearance CLEAR Urine pH 6.0 Ur Specific [place] 1.018 Urine Protein 30 H Urine Glucose (UA) >=500 H Urine Ketones TRACE H Urine Blood NEGATIVE Urine RBC (Auto) 0 Blood Type Antibody Screen 07/25/19 19:46 WBC RBC Hgb Hct MCV MCH MCHC RDW Plt Count Seg Neutrophils % Sodium Potassium Chloride Carbon Dioxide Anion Gap BUN Creatinine Est GFR ( Amer) Glucose Calcium Total Bilirubin AST Alkaline Phosphatase Total Protein Albumin Urine Color Urine Appearance Urine pH Ur Specific [place] Urine Protein Urine Glucose (UA) Urine Ketones Urine Blood Urine RBC (Auto) Blood Type A POSITIVE Antibody Screen NEGATIVE Assessment and Plan - Diagnosis (1) Intractable nausea and vomiting Is this a current diagnosis for this admission?: Yes Plan: Resolved. Patient is admitted to the medical floor on continuous cardiac telemetry. She is provided normal saline bolus by ED provider. We will continue gentle IV fluids. Antiemetics as needed. P.o. Decadron for new diagnosis of brain metastasis with surrounding edema. Diet as tolerated. (2) Hyponatremia Is this a current diagnosis for this admission?: Yes Plan: Secondary to #1 Management as above. Follow up chemistry. (3) Hypokalemia Is this a current diagnosis for this admission?: Yes Plan: Secondary to #1. Received 40 M EQ's via IV by ED provider. We will provide another 40 M EQ's p.o. potassium. Continue NS/KCL 20 Follow up chemistry. (4) Diabetes mellitus Qualifiers: Diabetes mellitus type: type 2 Diabetes mellitus complication status: without complication Is this a current diagnosis for this admission?: Yes Plan: Consistent carb diet. Accu-Cheks before meals and at bedtime with Humalog for sliding scale coverage. Lantus 20 units twice daily. Generous IV fluids. Hypoglycemia protocol. A1c pending. (5) HTN (hypertension) Qualifiers: Hypertension type: essential hypertension Qualified Code(s): I10 - Essential (primary) hypertension Is this a current diagnosis for this admission?: Yes Plan: Continue home dose lisinopril. (6) Breast cancer metastasized to brain Qualifiers: Laterality: right Qualified Code(s): C50.911 - Malignant neoplasm of unspecified site of right female breast; C79.31 - Secondary malignant neoplasm of brain Is this a current diagnosis for this admission?: Yes Plan: Followed by Dr. Ocampo as an outpatient. Consider consultation if patient has an extended admission. Absolute neutrophil 2.3; does not require protective precautions at this time but will monitor closely. (7) Anemia Qualifiers: Anemia type: other cause Is this a current diagnosis for this admission?: Yes Plan: Likely chemotherapy related. We will provide 2 units irradiated PRBC; has received 1 of 2 units (delay and transfusion due to requirement of irradiated products). Monitor for evidence of bleeding. Hold DVT prophylaxis. Follow-up CBC. - Time Time Spent with patient: 25-34 minutes Medications reviewed and adjusted accordingly: Yes Anticipated discharge: Home Within: within 24 hours
[2019-07-26 15:19] LABS: HEMATOCRIT 29.9 % (36.0-47.0); MEAN CORPUSCULAR HEMOGLOBIN 33.4 pg (27.0-33.4); MEAN CORPUSCULAR HGB CONC 35.2 g/dL (32.0-36.0); PLATELET COUNT 112 10^3/uL (150-450); RED BLOOD COUNT 3.15 10^6/uL (3.72-5.28); RED CELL DISTRIBUTION WIDTH 19.3 % (11.5-14.0)
[2019-07-26 15:22] LABS: HEMOGLOBIN 10.5 g/dL (12.0-15.5)
[2019-07-26 15:23] LABS: MEAN CORPUSCULAR VOLUME 95 fl (80-97)
[2019-07-26 15:36] LABS: ALBUMIN 3.4 g/dL (3.5-5.0); ALKALINE PHOSPHATASE 121 U/L (38-126); ANION GAP 9 (5-19); ASPARTATE AMINO TRANSFERASE 39 U/L (14-36); BILIRUBIN,DIRECT 0.3 mg/dL (0.0-0.4); BILIRUBIN,TOTAL 0.9 mg/dL (0.2-1.3); BLOOD UREA NITROGEN 12 mg/dL (7-20); CALCIUM 8.7 mg/dL (8.4-10.2); CARBON DIOXIDE 27 mmol/L (22-30); CHLORIDE 100 mmol/L (98-107); GLUCOSE 377 mg/dL (75-110); TOTAL PROTEIN 6.2 g/dL (6.3-8.2)
[2019-07-26 16:05] LABS: POTASSIUM 4.1 mmol/L (3.6-5.0)
[2019-07-26] MEDS: INSULIN GLARGINE,HUM.REC.ANLOG 1,000 UNIT/10 ML VIAL SUBCUT SCH (17:38)
[2019-07-26] MEDS ORDERED: (PENDING PHARMACY ID) (Simvastatin [Simvastatin] 20 MG) PO SCH (18:00)
[2019-07-26] MEDS ORDERED: SIMVASTATIN 10 MG TABLET PO SCH (18:00)
[2019-07-26] MEDS: NORMAL SALINE 1000 ML 1,000 ML IV PRN (20:23)
[2019-07-26] MEDS: OXYCODONE-ACETAMINOPHEN 5-325 MG TABLET PO PRN (21:33)
[2019-07-27] MEDS: DEXAMETHASONE 4 MG TABLET PO SCH ×3 (00:37→11:49)
[2019-07-27 05:09] LABS: HEMOGLOBIN 10.6 g/dL (12.0-15.5); MEAN CORPUSCULAR HEMOGLOBIN 33.5 pg (27.0-33.4); MEAN CORPUSCULAR HGB CONC 35.3 g/dL (32.0-36.0); MEAN CORPUSCULAR VOLUME 95 fl (80-97); PLATELET COUNT 107 10^3/uL (150-450); RED BLOOD COUNT 3.17 10^6/uL (3.72-5.28); RED CELL DISTRIBUTION WIDTH 20.4 % (11.5-14.0); WHITE BLOOD COUNT 5.1 10^3/uL (4.0-10.5)
[2019-07-27 05:30] LABS: ANION GAP 6 (5-19); BLOOD UREA NITROGEN 15 mg/dL (7-20); CALCIUM 8.2 mg/dL (8.4-10.2); CARBON DIOXIDE 27 mmol/L (22-30); CHLORIDE 105 mmol/L (98-107); GLUCOSE 306 mg/dL (75-110); POTASSIUM 4.2 mmol/L (3.6-5.0)
[2019-07-27] MEDS: NORMAL SALINE 1000 ML 1,000 ML IV PRN (05:41)
[2019-07-27] MEDS: INSULIN LISPRO 100 UNIT/ML 3 ML VIAL SUBCUT SCH ×2 (07:33→11:49)
[2019-07-27] MEDS ORDERED: LISINOPRIL 5 MG TABLET PO SCH (08:00)
[2019-07-27] MEDS ORDERED: EXEMESTANE 25 MG PO SCH (08:00)
--- NOTE | 2019-07-27 08:08 | PDOC PROGRESS REPORT ---
Subjective Progress Note for:: 07/27/19 Subjective:: Patient doing very well this morning, was able to walk with the use of a walker around the [place] and back. Seems ready to discharge home today. Discussed case with neurosurgery who will be seeing patient as an outpatient, working on getting them at appointment probably for next week. Reason For Visit: INTRACTABLE NAUSEA AND VOMITING,HYPOKALEMIA Physical Exam Vital Signs: Temp Pulse Resp BP Pulse Ox 97.4 F 75 16 144/60 H 95 07/26/19 23:32 07/27/19 07:00 07/26/19 23:32 07/26/19 23:32 07/26/19 23:32 Intake & Output 07/26/19 07/27/19 07/28/19 06:59 06:59 06:59 Intake Total 1375 2730 Output Total 1100 1550 Balance 275 1180 Weight 67.2 kg 69.6 kg General appearance: PRESENT: no acute distress, well-developed, well-nourished Head exam: PRESENT: atraumatic, normocephalic Eye exam: PRESENT: conjunctiva pink, EOMI, PERRLA. ABSENT: scleral icterus Ear exam: PRESENT: normal external ear exam Mouth exam: PRESENT: moist, tongue midline Neck exam: ABSENT: carotid bruit, JVD, lymphadenopathy, thyromegaly Respiratory exam: PRESENT: clear to auscultation debbie. ABSENT: rales, rhonchi, wheezes Cardiovascular exam: PRESENT: RRR. ABSENT: diastolic murmur, rubs, systolic murmur Pulses: PRESENT: normal dorsalis pedis pul Vascular exam: PRESENT: normal capillary refill GI/Abdominal exam: PRESENT: normal bowel sounds, soft. ABSENT: distended, guarding, mass, organolmegaly, rebound, tenderness Rectal exam: PRESENT: deferred Extremities exam: PRESENT: full ROM. ABSENT: calf tenderness, clubbing, pedal edema Neurological exam: PRESENT: alert, awake, oriented to person, oriented to place, oriented to time, oriented to situation, CN II-XII grossly intact. ABSENT: motor sensory deficit Psychiatric exam: PRESENT: appropriate affect, normal mood. ABSENT: homicidal ideation, suicidal ideation Skin exam: PRESENT: dry, intact, warm. ABSENT: cyanosis, rash Results Laboratory Results: 07/27/19 04:05 07/27/19 04:05 07/25/19 07/26/19 07/26/19 19:46 15:04 15:04 WBC 4.0 RBC 3.15 L Hgb 10.5 L D Hct 29.9 L MCV 95 D MCH 33.4 MCHC 35.2 RDW 19.3 H Plt Count 112 L Sodium 136.4 L Potassium 4.1 D Chloride 100 Carbon Dioxide 27 Anion Gap 9 BUN 12 Creatinine 0.69 Est GFR ( Amer) > 60 Glucose 377 H Calcium 8.7 Total Bilirubin 0.9 AST 39 H Alkaline Phosphatase 121 Total Protein 6.2 L Albumin 3.4 L Blood Type A POSITIVE Antibody Screen NEGATIVE 07/27/19 07/27/19 04:05 04:05 WBC 5.1 RBC 3.17 L Hgb 10.6 L Hct 30.0 L MCV 95 MCH 33.5 H MCHC 35.3 RDW 20.4 H Plt Count 107 L Sodium 138.0 Potassium 4.2 Chloride 105 Carbon Dioxide 27 Anion Gap 6 BUN 15 Creatinine 0.84 Est GFR ( Amer) > 60 Glucose 306 H Calcium 8.2 L Total Bilirubin AST Alkaline Phosphatase Total Protein Albumin Blood Type Antibody Screen Assessment & Plan - Diagnosis (1) Secondary malignant melanoma of brain Is this a current diagnosis for this admission?: Yes Plan: Patient will remain on dexamethasone 4 mg 4 times daily on discharge, she already has prescription waiting for her at [facility]. (2) Intractable nausea and vomiting Is this a current diagnosis for this admission?: Yes Plan: Resolved, secondary to brain metastasis (3) Hypokalemia Is this a current diagnosis for this admission?: Yes Plan: Resolved now secondary to continuous vomiting (4) Breast cancer metastasized to brain Qualifiers: Laterality: right Qualified Code(s): C50.911 - Malignant neoplasm of unspecified site of right female breast; C79.31 - Secondary malignant neoplasm of brain Is this a current diagnosis for this admission?: Yes Plan: [facility], referral to neurosurgery as an outpatient (5) Diabetes mellitus Qualifiers: Diabetes mellitus type: type 2 Diabetes mellitus complication status: witho ut complication Is this a current diagnosis for this admission?: Yes Plan: Will discuss with hospitalist team to make sure good home regimen given - Time Time Spent with patient: 35 or more minutes
[2019-07-27] MEDS: GABAPENTIN 300 MG CAPSULE PO SCH (09:20)
[2019-07-27] MEDS: DOCUSATE SODIUM 100 MG CAPSULE PO SCH (09:20)
[2019-07-27] MEDS: OXYCODONE-ACETAMINOPHEN 5-325 MG TABLET PO PRN (09:20)
[2019-07-27] MEDS: INSULIN GLARGINE,HUM.REC.ANLOG 1,000 UNIT/10 ML VIAL SUBCUT SCH (09:21)
[2019-07-27] MEDS: FAMOTIDINE INJ/PF 20 MG/2 ML SDV IV SCH (09:21)
[2019-07-27 12:45] VITALS: BP 143/76
--- NOTE | 2019-07-30 16:58 | PDOC DISCHARGE SUMMARY ---
Impression - Admit/DC Date/PCP Admission Date/Primary Care Provider: 07/25/19 17:39 THANH QUIROS MD Discharge Date: 07/27/19 - Discharge Diagnosis (1) Intractable nausea and vomiting Is this a current diagnosis for this admission?: Yes (2) Hyponatremia Is this a current diagnosis for this admission?: Yes (3) Hypokalemia Is this a current diagnosis for this admission?: Yes (4) Diabetes mellitus Is this a current diagnosis for this admission?: Yes (5) HTN (hypertension) Is this a current diagnosis for this admission?: Yes (6) Breast cancer metastasized to brain Is this a current diagnosis for this admission?: Yes (7) Anemia Is this a current diagnosis for this admission?: Yes - Additional Information Resuscitation Status: Full Code Discharge Diet: Diabetic Discharge Activity: Activity As Tolerated, Balance Activity w/Rest Referrals: THANH QUIROS MD [Primary Care Provider] - 08/04/19 11:00 am Prescriptions: Dexamethasone [Decadron 4 mg Tablet] 4 mg PO Q6 #120 tablet Insulin Aspart [Novolog Flexpen] 1 - 12 unit SUBCUT ACHS #1 pen Ondansetron [Zofran Odt 4 mg Tablet] 1 - 2 tab PO Q4HP PRN #20 tab.rapdis PRN Reason: For Nausea/Vomiting Home Medications: Acetaminophen [Acetaminophen Extra Strength] 500 mg PO Q4HP PRN 07/25/19 Exemestane 25 mg PO QAM 07/25/19 Gabapentin [Neurontin 300 mg Capsule] 300 mg PO BID 07/25/19 Lisinopril [Zestril] 5 mg PO QAM 07/25/19 Metformin HCl [Metformin HCl ER] 500 mg PO BID 07/25/19 Morphine Sulfate [Ms-Contin Sr 15 mg Tablet] 15 mg PO BIDP PRN 07/25/19 Omeprazole 40 mg PO QAM 07/25/19 Oxycodone HCl [Roxicodone] 10 mg PO Q4HP PRN 07/25/19 Ranitidine HCl [Zantac] 150 mg PO BID 07/25/19 Simvastatin 20 mg PO QPM 07/25/19 Acetaminophen [Tylenol 325 mg Tablet] 325 mg PO Q4HP PRN tablet 07/27/19 Dexamethasone [Decadron 4 mg Tablet] 4 mg PO Q6 #120 tablet 07/27/19 Docusate Sodium [Colace 100 mg Capsule] 100 mg PO DAILY capsule 07/27/19 Insulin Aspart [Novolog Flexpen] 1 - 12 unit SUBCUT ACHS #1 pen 07/27/19 Insulin Detemir [Levemir] 30 units SQ BID #0 07/27/19 Ondansetron [Zofran Odt 4 mg Tablet] 1 - 2 tab PO Q4HP PRN #20 tab.rapdis 07/27/19 History of Present Illiness History of Present Illness: KIM CROSS is a 78 year old female with a past medical history of hypertension, insulin-dependent diabetes mellitus, 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 Evaluation in the emergency department revealed mild tachycardia, hypertension, pancytopenia (WBC 3.1, Hgb 7.8, PLT 105), hyponatremia, hypokalemia, elevated bicarb, glucose of 482 but normal anion gap, trace ketones but negative urinalysis. She was provided antiemetics, IV Decadron, normal saline bolus, and K riders. She is referred to the hospitalist service for admission and management of the above-stated complaints. Prior to excepting the patient, the lead physician did speak with Dr. Quiros who reports that plan is to medically stabilize the patient and then arrange for outpatient neurosurgery evaluation for possible gamma knife. Hospital Course Hospital Course: (1) Intractable nausea and vomiting Resolved. Patient was admitted to the medical floor on continuous cardiac telemetry. She was supported with IV fluids and antiemetics as needed. She was started IV Decadron until she was tolerated oral intake; then transitioned to p.o. for discharge. (2) Hyponatremia Resolved. Secondary to #1 (3) Hypokalemia Resolved. Secondary to #1. Received IV and oral replacement. (4) Diabetes mellitus A1C 8.1% Consistent carb diet. Patient was discharged on twice daily levemir and sliding scale insulin. (5) HTN (hypertension) Continue home dose lisinopril. (6) Breast cancer metastasized to brain Followed by Dr. Quiros as an outpatient. Discharged on p.o. decadron per Dr. Quiros's recommendations. Dr. Quiros to arrange neurosurgery follow up. (7) Anemia Likely chemotherapy related. Received 2 units irradiated PRBC Physical Exam Vital Signs: Temp Pulse Resp BP Pulse Ox 98.8 F 93 19 143/76 H 95 07/27/19 12:00 07/27/19 12:00 07/27/19 12:00 07/27/19 12:00 07/27/19 12:00 General appearance: PRESENT: no acute distress, cooperative, well-developed, well-nourished - overweight Head exam: PRESENT: atraumatic, normocephalic Eye exam: PRESENT: conjunctiva pink, EOMI, PERRLA. ABSENT: scleral icterus Ear exam: PRESENT: normal external ear exam Mouth exam: PRESENT: moist, tongue midline Respiratory exam: PRESENT: clear to auscultation debbie, symmetrical, unlabored. ABSENT: rales, rhonchi, wheezes Cardiovascular exam: PRESENT: RRR, +S1, +S2. ABSENT: diastolic murmur, rubs, systolic murmur Pulses: PRESENT: normal dorsalis pedis pul Vascular exam: PRESENT: normal capillary refill GI/Abdominal exam: PRESENT: normal bowel sounds, soft. ABSENT: distended, guarding, mass, organolmegaly, rebound, tenderness Rectal exam: PRESENT: deferred Extremities exam: PRESENT: full ROM. ABSENT: calf tenderness, clubbing, pedal edema Musculoskeletal exam: PRESENT: ambulatory Neurological exam: PRESENT: alert, awake, oriented to person, oriented to place, oriented to time, oriented to situation, CN II-XII grossly intact. ABSENT: motor sensory deficit Psychiatric exam: PRESENT: appropriate affect, normal mood. ABSENT: homicidal ideation, suicidal ideation Skin exam: PRESENT: dry, intact, warm. ABSENT: cyanosis, rash Results Laboratory Results: WBC 5.1 10^3/uL (4.0-10.5) 07/27/19 04:05 RBC 3.17 10^6/uL (3.72-5.28) L 07/27/19 04:05 Hgb 10.6 g/dL (12.0-15.5) L 07/27/19 04:05 Hct 30.0 % (36.0-47.0) L 07/27/19 04:05 MCV 95 fl (80-97) 07/27/19 04:05 MCH 33.5 pg (27.0-33.4) H 07/27/19 04:05 MCHC 35.3 g/dL (32.0-36.0) 07/27/19 04:05 RDW 20.4 % (11.5-14.0) H 07/27/19 04:05 Plt Count 107 10^3/uL (150-450) L 07/27/19 04:05 Lymph % (Auto) 8.9 % (13-45) L 07/25/19 16:40 [place] % (Auto) 16.2 % (3-13) H 07/25/19 16:40 Eos % (Auto) 0.3 % (0-6) 07/25/19 16:40 Baso % (Auto) 0.8 % (0-2) 07/25/19 16:40 Absolute Neuts (auto) 2.3 10^3/uL (1.7-8.2) 07/25/19 16:40 Absolute Lymphs (auto) 0.3 10^3/uL (0.5-4.7) L 07/25/19 16:40 Absolute Monos (auto) 0.5 10^3/uL (0.1-1.4) 07/25/19 16:40 Absolute Eos (auto) 0.0 10^3/uL (0.0-0.6) 07/25/19 16:40 Absolute Basos (auto) 0.0 10^3/uL (0.0-0.2) 07/25/19 16:40 Seg Neutrophils % 73.8 % (42-78) 07/25/19 16:40 Sodium 138.0 mmol/L (137-145) 07/27/19 04:05 Potassium 4.2 mmol/L (3.6-5.0) 07/27/19 04:05 Chloride 105 mmol/L (98-107) 07/27/19 04:05 Carbon Dioxide 27 mmol/L (22-30) 07/27/19 04:05 Anion Gap 6 (5-19) 07/27/19 04:05 BUN 15 mg/dL (7-20) 07/27/19 04:05 Creatinine 0.84 mg/dL (0.52-1.25) 07/27/19 04:05 Est GFR ( Amer) > 60 (>60) 07/27/19 04:05 Est GFR (MDRD) Non-Af > 60 (>60) 07/27/19 04:05 Glucose 306 mg/dL (75-110) H 07/27/19 04:05 POC Glucose 317 mg/dL (70-110) H 07/27/19 11:46 Hemoglobin A1c % 8.1 % (4.7-6.0) H 07/26/19 15:04 Calcium 8.2 mg/dL (8.4-10.2) L 07/27/19 04:05 Total Bilirubin 0.9 mg/dL (0.2-1.3) 07/26/19 15:04 Direct Bilirubin 0.3 mg/dL (0.0-0.4) 07/26/19 15:04 Neonat Total Bilirubin Not Reportable 07/26/19 15:04 Neonat Direct Bilirubin Not Reportable 07/26/19 15:04 Neonat Indirect Bili Not Reportable 07/26/19 15:04 AST 39 U/L (14-36) H 07/26/19 15:04 ALT 18 U/L (<35) 07/26/19 15:04 Alkaline Phosphatase 121 U/L (38-126) 07/26/19 15:04 Total Protein 6.2 g/dL (6.3-8.2) L 07/26/19 15:04 Albumin 3.4 g/dL (3.5-5.0) L 07/26/19 15:04 Urine Color STRAW 07/25/19 16:00 Urine Appearance CLEAR 07/25/19 16:00 Urine pH 6.0 (5.0-9.0) 07/25/19 16:00 Ur Specific [place] 1.018 07/25/19 16:00 Urine Protein 30 mg/dL (NEGATIVE) H 07/25/19 16:00 Urine Glucose (UA) >=500 mg/dL (NEGATIVE) H 07/25/19 16:00 Urine Ketones TRACE mg/dL (NEGATIVE) H 07/25/19 16:00 Urine Blood NEGATIVE (NEGATIVE) 07/25/19 16:00 Urine Nitrite (Reflex) NEGATIVE (NEGATIVE) 07/25/19 16:00 Urine Bilirubin NEGATIVE (NEGATIVE) 07/25/19 16:00 Urine Urobilinogen NEGATIVE mg/dL (<2.0) 07/25/19 16:00 Leukocyte Esterase Rfl NEGATIVE (NEGATIVE) 07/25/19 16:00 Urine RBC (Auto) 0 /HPF 07/25/19 16:00 Urine WBC (Reflex) 2 /HPF 07/25/19 16:00 Urine Ascorbic Acid NEGATIVE (NEGATIVE) 07/25/19 16:00 Blood Type A POSITIVE 07/25/19 19:46 Blood Type Confirm A POSITIVE 07/25/19 20:33 Antibody Screen NEGATIVE 07/25/19 19:46 Crossmatch See Detail 07/25/19 19:46 Plan Plan of Treatment: The patient is discharged home in stable condition. She is advised to follow-up with her primary care provider as previously scheduled. She is instructed follow-up with Dr. Quiros within 1 week. She is encouraged to drink plenty of water and eat as tolerated. Take medications as prescribed. She was provided detailed information on how to utilize sliding scale insulin and how to increase her long-acting insulin based upon fasting blood sugars that she is now being discharged on long-term steroid therapy. She is advised to return to the emergency department as needed for concerning symptoms. Time Spent: Greater than 30 Minutes Stroke Is this a Stroke Patient?: No Acute Heart Failure - Is this a Heart Failure Patient?: No
== END 2019-07-27 12:34 | disposition home or self-care (01) ==
LOC: ER 15:38 → EH 17:39 → INTOOBSV 17:39 → 4N 07-26 00:55
PROVIDERS: ADMIT Internal Medicine; ATTEND Internal Medicine
DX: R11.2 Nausea with vomiting, unspecified (principal); T38.3X6A Underdosing of insulin and oral hypoglycemic [antidiabetic] drugs, initial encounter; Z91.128 Patient's intentional underdosing of medication regimen for other reason; E11.65 Type 2 diabetes mellitus with hyperglycemia; E87.1 Hypo-osmolality and hyponatremia; E87.6 Hypokalemia; I10 Essential (primary) hypertension; C50.911 Malignant neoplasm of unspecified site of right female breast; C79.31 Secondary malignant neoplasm of brain; C79.51 Secondary malignant neoplasm of bone; D64.89 Other specified anemias; R00.0 Tachycardia, unspecified; D61.818 Other pancytopenia; Z85.828 Personal history of other malignant neoplasm of skin; Z87.891 Personal history of nicotine dependence
CPT/HCPCS: 99284; 96360; 86900; 86901; 36415 ×3; 36430; 86850; 82962 ×3; 85025; 85027 ×2; 80048; 80053 ×2; 81001; 83036; 86920; P9016; A9270 ×18; J3480 ×2; J7030 ×3; S0028 ×3; J1100 ×2; G0378; J1815; J8540

== ENCOUNTER 2019-08-31 12:46 | Inpatient (IN) | payer MEDICARE, OTHER ==
[2019-08-31 13:20] LABS: HEMATOCRIT 30.6 % (36.0-47.0); HEMOGLOBIN 10.7 g/dL (12.0-15.5); MEAN CORPUSCULAR HEMOGLOBIN 33.8 pg (27.0-33.4); MEAN CORPUSCULAR VOLUME 97 fl (80-97); PLATELET COUNT 112 10^3/uL (150-450); RED BLOOD COUNT 3.17 10^6/uL (3.72-5.28); RED CELL DISTRIBUTION WIDTH 19.6 % (11.5-14.0); WHITE BLOOD COUNT 8.7 10^3/uL (4.0-10.5)
[2019-08-31 13:37] LABS: ALBUMIN 3.5 g/dL (3.5-5.0); ALKALINE PHOSPHATASE 176 U/L (38-126); ANION GAP 17 (5-19); ASPARTATE AMINO TRANSFERASE 48 U/L (14-36); BILIRUBIN,DIRECT 0.8 mg/dL (0.0-0.4); BILIRUBIN,TOTAL 1.7 mg/dL (0.2-1.3); BLOOD UREA NITROGEN 27 mg/dL (7-20); CALCIUM 8.9 mg/dL (8.4-10.2); CARBON DIOXIDE 20 mmol/L (22-30); CHLORIDE 87 mmol/L (98-107); CREATINE KINASE 142 U/L (30-135); POTASSIUM 5.9 mmol/L (3.6-5.0); TOTAL PROTEIN 6.5 g/dL (6.3-8.2)
[2019-08-31 13:47] LABS: GLUCOSE 422 mg/dL (75-110)
[2019-08-31 13:48] LABS: CREATINE KINASE MB 0.95 ng/mL (<4.55)
[2019-08-31 13:52] LABS: TROPONIN I < 0.012 ng/mL
[2019-08-31 13:53] LABS: ABSOLUTE LYMPHOCYTES# (MANUAL) 0.1 10^3/uL (0.5-4.7); ABSOLUTE MONOCYTES # (MANUAL) 0.3 10^3/uL (0.1-1.4); BAND NEUTROPHILS % (MANUAL) 1 % (3-5); BASOPHILS % (MANUAL) 1 % (0-2); EOSINOPHILS % (MANUAL) 0 % (0-6); LYMPHOCYTES % (MANUAL) 0 % (13-45); METAMYELOCYTES % (MANUAL) 1 % (0-1); MONOCYTES % (MANUAL) 3 % (3-13); POLYCHROMASIA SLIGHT; SEGMENTED NEUTROPHILS % (MAN) 93 % (42-78); TOTAL CELLS COUNTED 100; TOXIC GRANULATION 1+; TOXIC VACUOLATION PRESENT
[2019-08-31 13:54] LABS: ANISOCYTOSIS 2+; PLATELET COMMENT DECREASED
[2019-08-31 16:10] LABS: AMORPHOUS SEDIMENT,URINE TRACE /HPF; APPEARANCE,URINE TURBID; BILIRUBIN,URINE NEGATIVE (NEGATIVE); CALCIUM OXALATE CRYSTALS,URINE MODERATE /HPF; COLOR,URINE AMBER; GLUCOSE, URINE >=500 mg/dL (NEGATIVE); KETONES,URINE 20 mg/dL (NEGATIVE); LEUKOCYTE ESTERASE,URINE MODERATE (NEGATIVE); NITRITE,URINE NEGATIVE (NEGATIVE); PROTEIN,URINE 30 mg/dL (NEGATIVE); URINE SPECIFIC GRAVITY 1.018
[2019-08-31] MEDS ORDERED: ONDANSETRON HCL INJ/PF 4 MG/2 ML SDV IV ONE (16:13)
[2019-08-31] MEDS ORDERED: NORMAL SALINE 1000 ML 1,000 ML IV ONE (16:13)
--- NOTE | 2019-08-31 16:16 | ER Document Report ---
ED General - General Chief Complaint: General Weakness Stated Complaint: WEAKNESS Time Seen by Provider: 08/31/19 16:05 Primary Care Provider: ARASH SAMUELS, ROCK LATHER [Primary Care Provider] - Follow up as needed TRAVEL OUTSIDE OF THE [place] 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 This lady has general failure to thrive and has not been eating and drinking for approximately 1 week. She is not taking any insulin for diabetes. She is thirsty and having frequent urination. They also noted that she had a low oxygen saturation around 90% on room air and she is not chronically on oxygen. She has been falling repeatedly and has widespread bruises and abrasions. - Related Data Allergies/Adverse Reactions: benzalkonium chloride [From Merthiolate (benzalkonium)] Allergy (Unknown, Verified 08/31/19 16:21) nickel Allergy (Unknown, Verified 08/31/19 16:21) latex Allergy (Verified 08/31/19 16:21) Penicillins Allergy (Verified 08/31/19 16:21) BEES Allergy (Mild, Uncoded 08/31/19 16:21) Past Medical History - General Information source: Patient, [facility] Records, Outside Facility Records - Social History Smoking Status: Unknown if Ever Smoked Family History: Reviewed & Not Pertinent, Malignancy - Past Medical History Cardiac Medical History: Reports: Hx Hypertension Denies: Hx Congestive Heart Failure, Hx Coronary Artery Disease, Hx Heart Attack Pulmonary Medical History: Reports: Hx Asthma - MILD, Hx Pneumonia Denies: Hx Bronchitis, Hx COPD Neurological Medical History: Denies: Hx Cerebrovascular Accident, Hx Seizures Endocrine Medical History: Reports: Hx Diabetes Mellitus Type 2 - insulin dependent. Denies: Hx Hypothyroidism Renal/ Medical History: Denies: Hx Peritoneal Dialysis Malignancy Medical History: Reports: Hx Breast Cancer - bone and brain mets, Hx Skin Cancer GI Medical History: Denies: Hx Hepatitis, Hx Hiatal Hernia, Hx Ulcer Musculoskeletal Medical History: Reports Hx Arthritis - OSTEO, HANDS, KNEES, Reports Other - Bone metastases Psychiatric Medical History: Denies: Hx Depression Infectious Medical History: Denies: Hx Hepatitis Past Surgical History: Reports: Hx Appendectomy, Hx Breast Surgery, Hx Hysterectomy, Hx Orthopedic Surgery - kyphoplasty, Hx Tonsillectomy - addnoids, Other - Breast lumpectomy. Denies: Hx Mastectomy - LUMPECTOMY NO MASTECTOMY, Hx Open Heart Surgery, Hx Pacemaker - Immunizations Hx Diphtheria, Pertussis, Tetanus Vaccination: No Review of Systems - Review of Systems Notes: Constitutional: Negative for fever. HENT: Negative for sore throat. Eyes: Negative for visual changes. Cardiovascular: Negative for chest pain. Respiratory: As per HPI. Gastrointestinal: Negative for abdominal pain, vomiting or diarrhea. Genitourinary: Negative for dysuria. Musculoskeletal: Negative for back pain. Skin: Negative for rash. Neurological: Negative for headaches, focal weakness or numbness. 10 point ROS negative except as marked above and in HPI. Physical Exam - Vital signs Vitals: Resp Pulse Ox 18 89 L 08/31/19 12:51 08/31/19 12:51 - Notes Notes: GENERAL: Frail elderly female well-developed well-nourished appearing chronically ill. SKIN: Good turgor no rashes. HEAD: Normocephalic. Old ecchymoses over the facial area which patient attributes to a fall about a week ago. EYES: PERRLA. EOMI. Conjunctivae and sclerae clear. EARS: CANALS AND TMS CLEAR. NOSE: CLEAR. MOUTH: Moist mucosa. Good dentition. No stridor or edema. No drooling. NECK: Supple. No masses or thyromegaly. No adenopathy. Carotids 2+ without bruits. No JVD. BACK: Symmetrical without tenderness. CHEST: Respirations unlabored. Breath sounds clear and symmetrical. HEART: Regular rhythm. No murmur gallop or rub. ABDOMEN: Soft nontender without masses, organomegaly or rebound. Bowel sounds normally active. No bruits. GENITALIA: Deferred. EXTREMITIES: Old abrasion right lower leg anteriorly. No edema. No calf tende rness. Cap refill less than 1.5 seconds. Dorsalis pedis and posterior tibial pulses 3+ and symmetrical. NEUROLOGICAL: GCS 15. Alert and oriented x3. Generally weak and unable to stand without assistance. Fluent speech. Cranial nerves II through XII intact. Sensorimotor and cerebellar normal. Normal tone. PSYCHIATRIC: Appropriate affect. Course - Re-evaluation Re-evalutation: 08/31/19 19:42 Patient is hydrated with normal saline. She is hyponatremic here and dehydrated and also has a sugar in the 400s. She is not in DKA. Brain CT shows no acute traumatic changes. She has previously identified brain metastases. Findings discussed with on-call hospitalist Dr. Carlson who has accepted for admission to telemetry. - Vital Signs Vital signs: Temp Pulse Resp BP Pulse Ox 98.4 F 18 126/67 H 98 08/31/19 12:54 08/31/19 15:00 08/31/19 13:00 08/31/19 15:00 - Laboratory Result Diagrams: 08/31/19 11:56 08/31/19 11:56 Laboratory results interpreted by me: 08/31/19 08/31/19 08/31/19 11:56 11:56 12:54 RBC 3.17 L Hgb 10.7 L Hct 30.6 L MCH 33.8 H RDW 19.6 H Plt Count 112 L Seg Neuts % (Manual) 93 H Band Neutrophils % 1 L Lymphocytes % (Manual) 0 L Abs Neuts (Manual) 8.3 H Abs Lymphs (Manual) 0.1 L ABG pO2 ABG O2 Saturation Sodium 124.0 L Potassium 5.9 H Chloride 87 L Carbon Dioxide 20 L BUN 27 H Glucose 422 H* POC Glucose 451 H* Total Bilirubin 1.7 H Direct Bilirubin 0.8 H AST 48 H Alkaline Phosphatase 176 H Creatine Kinase 142 H Urine Protein Urine Glucose (UA) Urine Ketones Urine Urobilinogen Ur Leukocyte Esterase 08/31/19 08/31/19 13:35 18:27 RBC Hgb Hct MCH RDW Plt Count Seg Neuts % (Manual) Band Neutrophils % Lymphocytes % (Manual) Abs Neuts (Manual) Abs Lymphs (Manual) ABG pO2 121.2 H ABG O2 Saturation 98.3 H Sodium Potassium Chloride Carbon Dioxide BUN Glucose POC Glucose Total Bilirubin Direct Bilirubin AST Alkaline Phosphatase Creatine Kinase Urine Protein 30 H Urine Glucose (UA) >=500 H Urine Ketones 20 H Urine Urobilinogen 2.0 H Ur Leukocyte Esterase MODERATE H Discharge - Discharge Clinical Impression: Dehydration Hyperglycemia due to type 2 diabetes mellitus Qualifiers: Diabetes mellitus mcc insulin use: with intermediate frame tender use Qualified Code(s): E11.65 - Type 2 diabetes mellitus with hyperglycemia Breast cancer metastasized to brain Qualifiers: Laterality: unspecified laterality Qualified Code(s): C50.919 - Malignant neoplasm of unspecified site of unspecified female breast Condition: Serious Disposition: ADMITTED INPATIENT Admitting Provider: Dr. Carlson Unit Admitted: Telemetry Referrals: ARASH SAMUELS, WALKER [Primary Care Provider] - Follow up as needed
--- NOTE | 2019-08-31 16:39 | RADIOLOGY REPORT (SQ) ---
EXAM DESCRIPTION: CHEST SINGLE VIEW COMPLETED DATE/TIME: 08/31/2019 4:25 pm REASON FOR STUDY: hypoxia COMPARISON: 05/08/2017. EXAM PARAMETERS: NUMBER OF VIEWS: One view. TECHNIQUE: Single frontal radiographic view of the chest acquired. RADIATION DOSE: NA LIMITATIONS: None. FINDINGS: LUNGS AND PLEURA: Chronic interstitial prominence. No opacities, masses or pneumothorax. No pleural effusion. MEDIASTINUM AND HILAR STRUCTURES: No masses. Contour normal. HEART AND VASCULAR STRUCTURES: Heart normal in size. Normal vasculature. BONES: No acute findings. HARDWARE: None in the chest. OTHER: No other significant finding. IMPRESSION: NO ACUTE RADIOGRAPHIC FINDING IN THE CHEST. TECHNICAL DOCUMENTATION: JOB ID: [id number] 2010 [employer]- All Rights Reserved Reading location - IP/workstation name: [email or web address]
--- NOTE | 2019-08-31 17:09 | RADIOLOGY REPORT (SQ) ---
EXAM DESCRIPTION: CT HEAD WITHOUT COMPLETED DATE/TIME: 08/31/2019 3:41 pm REASON FOR STUDY: fall/injury. Breast cancer with intracranial metastasis. COMPARISON: MRI brain, 07/24/2019. TECHNIQUE: Axial images acquired through the brain without intravenous contrast. Images reviewed wi th bone, brain and subdural windows. Additional sagittal and coronal reconstructions were generated. Images stored on PACS. All CT scanners at this facility use dose modulation, iterative reconstruction, and/or weight based d osing when appropriate to reduce radiation dose to as low as reasonably achievable (ALARA). [facility]: Dose Right [facility]: CareDose [facility]: Dose Right [facility]: Teradose 4D [facility]: Smart PlayData RADIATION DOSE: CT Rad equipment meets quality standard of care and radiation dose reduction techniq ues were employed. CTDIvol: 53.2 mGy. DLP: 937 mGy-cm. mGy. LIMITATIONS: None. FINDINGS: VENTRICLES: Normal size and contour. CEREBRUM: No masses. No hemorrhage. Subcortical edema in the left parietal lobe stable from previou s examination. No significant mass effect. No midline shift. No evidence for acute infarction. Mod erate patchy periventricular and deep white matter hypodense attenuation consistent with moderate chr onic small vessel ischemic change. There is intracranial atherosclerosis. CEREBELLUM: No masses. No hemorrhage. No alteration of density. No evidence for acute infarction. EXTRAAXIAL SPACES: No fluid collections. No masses. ORBITS AND GLOBE: No intra- or extraconal masses. Normal contour of globe without masses. CALVARIUM: No fracture. PARANASAL SINUSES: No fluid or mucosal thickening. SOFT TISSUES: No mass or hematoma. OTHER: No other significant finding. IMPRESSION: Persistent vasogenic edema indicating an underlying metastasis in the left parietal lobe , not significantly changed from previous examination. No acute intracranial hemorrhage, mass, or ev idence of acute territorial infarct. Moderate chronic small vessel ischemic change. EVIDENCE OF ACUTE STROKE: NO. COMMENT: Quality ID # [id number]: Final reports with documentation of one or more dose reduction techniques (e.g., Automated exposure control, adjustment of the mA and/or kV according to patient size, use of iterative reconstruction technique) TECHNICAL DOCUMENTATION: JOB ID: [id number] 2010 [employer]- All Rights Reserved Reading location - IP/workstation name: [email or web address]
--- NOTE | 2019-08-31 17:24 | EKG REPORT ---
SEVERITY:- ABNORMAL ECG - SINUS TACHYCARDIA PROMINENT P WAVES, NONDIAGNOSTIC TALL R WAVE IN V2, CONSIDER RVH OR PMI REPOLARIZATION ABNORMALITY, PROB RATE RELATED PROLONGED QT INTERVAL : Confirmed by: Levar Abreu MD 31-Aug-2019 17:23:38
[2019-08-31 18:47] LABS: ARTERIAL BLOOD BASE EXCESS -4.3 mmol/L; ARTERIAL BLOOD HCO3 20.5 mmol/L (20-24); ARTERIAL BLOOD O2 SATURATION 98.3 % (94-98); ARTERIAL BLOOD PCO2 36.5 mmHg (35-45); ARTERIAL BLOOD PH 7.37 (7.35-7.45); ARTERIAL BLOOD PO2 121.2 mmHg (80-100); ARTERIAL BLOOD TOTAL CO2 21.6 mmol/L (21-25)
[2019-08-31 18:48] LABS: ARTERIAL BLOOD FIO2 32%
[2019-08-31] MEDS ORDERED: ONDANSETRON HCL INJ/PF 4 MG/2 ML SDV IV PRN (21:33)
[2019-08-31] MEDS ORDERED: ONDANSETRON 4 MG TAB.RAPDIS PO PRN (21:33)
--- NOTE | 2019-08-31 22:11 | PDOC H&P ---
History of Present Illness Admission Date/PCP: 08/31/19 20:03 ARASH SAMUELS NP History of Present Illness: KIM CROSS is a 78 year old female with past medical history significant for stage IV widely metastatic breast cancer, T2 DM, history of uterine cancer treated with hysterectomy, and severe malnutrition who presents after being sent to ER by her PCP over concerns of multiple falls at home, poor p.o. intake, and generalized severe weakness. Patient lives alone but has a neighbor who checks on her daily. She has multiple abrasions on her legs from her falls some a few months old but have not healed. Patient is currently undergoing brain radiation for her breast cancer metastases and these were again visualized on head CT on day of admission. Patient states she does not know whether her treatment has been successful or not. She is not currently considering hospice but may be open to it at a later date. She has notable labs for hyperkalemia, hyponatremia, and blood sugar in the 400s. She states she quit taking her home insulin because she has been eating little or no food for several days due to loss of appetite which she relates to radiation treatment. She also states she has not taken any of her medications for several days and states she is no kartik alaina on steroid as she was tapered off of this by her physician. Past Medical History Cardiac Medical History: Reports: Hypertension Denies: Congestive Heart Failure, Coronary Artery Disease, Myocardial Infarction Pulmonary Medical History: Reports: Asthma - MILD, Pneumonia Denies: Bronchitis, Chronic Obstructive Pulmonary Disease (COPD) Neurological Medical History: Denies: Seizures Endocrine Medical History: Reports: Diabetes Mellitus Type 2 - insulin dependent Denies: Hypothyroidism Malignancy Medical History: Reports: Breast Cancer - bone and brain mets, Skin Cancer GI Medical History: Denies: Hepatitis, Hiatal Hernia Musculoskeltal Medical History: Reports: Arthritis - OSTEO, HANDS, KNEES, Other - Bone metastases Psychiatric Medical History: Denies: Depression Hematology: Reports: Anemia Denies: Sickle Cell Disease Past Surgical History Past Surgical History: Reports: Appendectomy, Hysterectomy, Orthopedic Surgery - kyphoplasty, Tonsillectomy - addnoids, Other - Breast lumpectomy Denies: Amputation, Mastectomy - LUMPECTOMY NO MASTECTOMY, Pacemaker Social History Information Source: Patient Lives with: Alone Smoking Status: Unknown if Ever Smoked Frequency of Alcohol Use: Rare Hx Recreational Drug Use: No Drugs: None Hx Prescription Drug Abuse: No - Advance Directive Resuscitation Status: Do Not Resuscitate Surrogate healthcare decision maker:: Son Family History Family History: Reviewed & Not Pertinent, Malignancy Parental Family History Reviewed: Yes Children Family History Reviewed: Yes Sibling(s) Family History Reviewed.: Yes Medication/Allergy Home Medications: Exemestane 25 mg PO QAM 07/25/19 Gabapentin [Neurontin 300 mg Capsule] 300 mg PO BID 07/25/19 Lisinopril [Zestril] 5 mg PO QAM 07/25/19 Metformin HCl [Metformin HCl ER] 500 mg PO BID 07/25/19 Omeprazole 40 mg PO QAM 07/25/19 Ranitidine HCl [Zantac] 150 mg PO BID 07/25/19 Simvastatin 20 mg PO QPM 07/25/19 Dexamethasone [Decadron 4 mg Tablet] 4 mg PO Q6 #120 tablet 07/27/19 Insulin Aspart [Novolog Flexpen] 1 - 12 unit SUBCUT ACHS #1 pen 07/27/19 Insulin Detemir [Levemir] 80 units SQ BID 08/31/19 Allergies/Adverse Reactions: benzalkonium chloride [From Merthiolate (benzalkonium)] Allergy (Unknown, Verified 08/31/19 16:21) nickel Allergy (Unknown, Verified 08/31/19 16:21) latex Allergy (Verified 08/31/19 16:21) Penicillins Allergy (Verified 08/31/19 16:21) BEES Allergy (Mild, Uncoded 08/31/19 16:21) Review of Systems All systems: reviewed and no additional remarkable complaints except as stated - See HPI for full review of systems, otherwise negative Constitutional: PRESENT: anorexia, fatigue, weight loss Neurological: PRESENT: frequent falls Physical Exam Vital Signs: Temp Pulse Resp BP Pulse Ox 98.4 F 20 128/67 H 100 08/31/19 12:54 08/31/19 21:01 08/31/19 21:00 08/31/19 21:01 Intake & Output 08/30/19 08/31/19 09/01/19 06:59 06:59 06:59 Intake Total 1000 Balance 1000 Weight 60.328 kg General appearance: PRESENT: no acute distress, cooperative Head exam: PRESENT: normocephalic. ABSENT: atraumatic - Ecchymoses along right face/forehead/periorbital region Eye exam: PRESENT: conjunctiva pink Respiratory exam: PRESENT: clear to auscultation debbie. ABSENT: rales, rhonchi, wheezes Cardiovascular exam: PRESENT: RRR. ABSENT: diastolic murmur, rubs, systolic murmur GI/Abdominal exam: PRESENT: normal bowel sounds, soft. ABSENT: distended, guarding, mass, organolmegaly, rebound, tenderness Neurological exam: PRESENT: alert, awake, oriented to person, oriented to place, oriented to time, oriented to situation Psychiatric exam: PRESENT: appropriate affect, normal mood Skin exam: PRESENT: dry, intact, warm Results Laboratory Results: 08/31/19 11:56 08/31/19 11:56 08/31/19 08/31/19 08/31/19 11:56 11:56 13:35 WBC 8.7 RBC 3.17 L Hgb 10.7 L Hct 30.6 L MCV 97 MCH 33.8 H MCHC 35.0 RDW 19.6 H Plt Count 112 L Seg Neutrophils % Not Reportable Carbonic Acid HCO3/H2CO3 Ratio ABG pH ABG pCO2 ABG pO2 ABG HCO3 ABG O2 Saturation ABG Base Excess FiO2 Sodium 124.0 L Potassium 5.9 H Chloride 87 L Carbon Dioxide 20 L Anion Gap 17 BUN 27 H Creatinine 0.88 Est GFR ( Amer) > 60 Glucose 422 H* Calcium 8.9 Total Bilirubin 1.7 H AST 48 H Alkaline Phosphatase 176 H Total Protein 6.5 Albumin 3.5 Urine Color ASHKAN Urine Appearance TURBID Urine pH 5.0 Ur Specific [place] 1.018 Urine Protein 30 H Urine Glucose (UA) >=500 H Urine Ketones 20 H Urine Blood NEGATIVE Urine Nitrite NEGATIVE Ur Leukocyte Esterase MODERATE H Urine WBC (Auto) 72 Urine RBC (Auto) 72 08/31/19 18:27 WBC RBC Hgb Hct MCV MCH MCHC RDW Plt Count Seg Neutrophils % Carbonic Acid 1.10 HCO3/H2CO3 Ratio 18:1 ABG pH 7.37 ABG pCO2 36.5 ABG pO2 121.2 H ABG HCO3 20.5 ABG O2 Saturation 98.3 H ABG Base Excess -4.3 FiO2 32% Sodium Potassium Chloride Carbon Dioxide Anion Gap BUN Creatinine Est GFR ( Amer) Glucose Calcium Total Bilirubin AST Alkaline Phosphatase Total Protein Albumin Urine Color Urine Appearance Urine pH Ur Specific [place] Urine Protein Urine Glucose (UA) Urine Ketones Urine Blood Urine Nitrite Ur Leukocyte Esterase Urine WBC (Auto) Urine RBC (Auto) 08/31/19 08/31/19 11:56 11:56 Creatine Kinase 142 H CK-MB (CK-2) 0.95 Troponin I < 0.012 Impressions: Chest X-Ray 08/31/19 16:14 IMPRESSION: NO ACUTE RADIOGRAPHIC FINDING IN THE CHEST. Head CT 08/31/19 16:14 IMPRESSION: Persistent vasogenic edema indicating an underlying metastasis in the left parietal lobe, not significantly changed from previous examination. No acute intracranial hemorrhage, mass, or evidence of acute territorial infarct. Moderate chronic small vessel ischemic change. EVIDENCE OF ACUTE STROKE: NO. 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 Is this a current diagnosis for this admission?: Yes Plan: Patient stopped taking insulin when she stopped eating food a few days prior to admission Restart home Lantus at 30 units, patient states she was previously taking 130 units which she dropped to 80 and then stopped taking altogether Low-dose correctional insulin Accu-Cheks A1c (3) Hyperkalemia Is this a current diagnosis for this admission?: Yes Plan: IV hydration Trend BMP Oral sodium bicarb to bring up sodium and lower potassium IV calcium gluconate to stabilize myocardium (4) Hyponatremia Is this a current diagnosis for this admission?: Yes Plan: Likely due to severe malnutrition and poor oral intake IV fluids (5) Failure to thrive Is this a current diagnosis for this admission?: Yes Plan: PT/OT needed Would be appropriate for rehab facility or long-term nursing (6) Dehydration Is this a current diagnosis for this admission?: Yes (7) Loss of appetite Is this a current diagnosis for this admission?: Yes (8) Breast cancer metastasized to brain Qualifiers: Laterality: unspecified laterality Qualified Code(s): C50.919 - Malignant neoplasm of unspecified site of unspecified female breast; C79.31 - Secondary malignant neoplasm of brain Is this a current diagnosis for this admission?: Yes Plan: Brain mets seen on head CT, unclear if these are significantly changed from previous imaging as we do not have access to these documents Poor prognosis overall (9) HTN (hypertension) Qualifiers: Hypertension type: essential hypertension Qualified Code(s): I10 - Essential (primary) hypertension Is this a current diagnosis for this admission?: Yes Plan: Selectively continue home medications as BP allows - Time Time Spent with patient: 35 or more minutes - Inpatient Certification Medical Necessity: Significant Comorbidiites Make Outpatient Treatment Too Risky, Need Close Monitoring Due to Risk of Patient Decompensation, Need For IV Fluids
--- NOTE | 2019-08-31 22:13 | ADVANCED CARE ---
- Diagnosis (1) Severe protein-calorie malnutrition Diagnosis Current: Yes (2) Hyperglycemia due to type 2 diabetes mellitus Diagnosis Current: Yes (3) Hyperkalemia Diagnosis Current: Yes (4) Hyponatremia Diagnosis Current: Yes (5) Failure to thrive Diagnosis Current: Yes (6) Dehydration Diagnosis Current: Yes (7) Loss of appetite Diagnosis Current: Yes (8) Breast cancer metastasized to brain Diagnosis Current: Yes (9) HTN (hypertension) Diagnosis Current: Yes Attendance: Patient Resuscitation Status: Do Not Resuscitate Discussion: All aspects of CODE STATUS discussed including chest compressions, cardioversion, intubation and patient states she would like to be DO NOT RESUSCITATE. She states her medical power of divorce attorney is her son Jimmy Haider Time Spent: 17 minutes
[2019-08-31] MEDS ORDERED: CALCIUM GLUCONATE 1000 MG/10 ML INJ IV ONE (22:30)
[2019-08-31] MEDS: SODIUM BICARBONATE 650 MG TABLET PO SCH (22:48)
[2019-08-31] MEDS: INSULIN LISPRO 100 UNIT/ML 3 ML VIAL SUBCUT SCH (22:48)
[2019-08-31] MEDS: RINGERS SOLUTION,LACTATED 1,000 ML IV PRN (22:59)
[2019-08-31] MEDS: ACETAMINOPHEN 325 MG TABLET PO PRN (23:08)
[2019-08-31] MEDS: HEPARIN SOD (PORCINE) 5,000 UNIT/ML 1 ML VIAL SUBCUT SCH (23:18)
[2019-08-31] MEDS ORDERED: GABAPENTIN 300 MG CAPSULE PO ONE (23:59)
[2019-08-31] MEDS ORDERED: FAMOTIDINE 20 MG TABLET PO ONE (23:59)
[2019-08-31] MEDS ORDERED: SIMVASTATIN 40 MG TABLET PO ONE (23:59)
[2019-09-01] MEDS: HEPARIN SOD (PORCINE) 5,000 UNIT/ML 1 ML VIAL SUBCUT SCH ×3 (05:12→22:58)
[2019-09-01] MEDS: PANTOPRAZOLE SODIUM 40 MG TABLET.DR PO SCH (05:16)
[2019-09-01 06:15] LABS: ANION GAP 9 (5-19); BLOOD UREA NITROGEN 23 mg/dL (7-20); CARBON DIOXIDE 26 mmol/L (22-30); CHLORIDE 96 mmol/L (98-107); GLUCOSE 213 mg/dL (75-110)
[2019-09-01 06:19] LABS: HEMATOCRIT 32.4 % (36.0-47.0); HEMOGLOBIN 11.5 g/dL (12.0-15.5); MEAN CORPUSCULAR HEMOGLOBIN 33.9 pg (27.0-33.4); MEAN CORPUSCULAR HGB CONC 35.5 g/dL (32.0-36.0); MEAN CORPUSCULAR VOLUME 95 fl (80-97); RED CELL DISTRIBUTION WIDTH 19.5 % (11.5-14.0); WHITE BLOOD COUNT 4.7 10^3/uL (4.0-10.5)
[2019-09-01 06:30] LABS: POTASSIUM 3.8 mmol/L (3.6-5.0)
[2019-09-01 06:34] LABS: PLATELET COUNT 71 10^3/uL (150-450)
[2019-09-01 06:38] LABS: ABSOLUTE LYMPHOCYTES# (MANUAL) 0.1 10^3/uL (0.5-4.7); ABSOLUTE MONOCYTES # (MANUAL) 0.3 10^3/uL (0.1-1.4); BAND NEUTROPHILS % (MANUAL) 3 % (3-5); BASOPHILS % (MANUAL) 1 % (0-2); EOSINOPHILS % (MANUAL) 0 % (0-6); LYMPHOCYTES % (MANUAL) 2 % (13-45); METAMYELOCYTES % (MANUAL) 1 % (0-1); MONOCYTES % (MANUAL) 6 % (3-13); NUCLEATED RED BLOOD CELLS 2 /100 WBC (0); SEGMENTED NEUTROPHILS % (MAN) 87 % (42-78); TOTAL CELLS COUNTED 100
[2019-09-01 06:40] LABS: TOXIC GRANULATION SLIGHT
[2019-09-01 06:41] LABS: OVALOCYTES SLIGHT; SCHISTOCYTES SLIGHT
[2019-09-01 06:47] LABS: PLATELET COMMENT DECREASED; TEAR DROP CELLS SLIGHT
[2019-09-01] MEDS: INSULIN LISPRO 100 UNIT/ML 3 ML VIAL SUBCUT SCH ×4 (07:52→22:50)
[2019-09-01] MEDS: SODIUM BICARBONATE 650 MG TABLET PO SCH ×3 (07:53→17:38)
[2019-09-01] MEDS ORDERED: EXEMESTANE 25 MG PO SCH (08:00)
[2019-09-01] MEDS: FAMOTIDINE 20 MG TABLET PO SCH ×2 (09:56→22:43)
[2019-09-01] MEDS: DOCUSATE SODIUM 100 MG CAPSULE PO SCH (09:56)
[2019-09-01] MEDS: MULTIVITAMIN TABLET PO SCH (09:57)
[2019-09-01] MEDS: GABAPENTIN 300 MG CAPSULE PO SCH ×2 (09:57→17:38)
[2019-09-01] MEDS ORDERED: INSULIN GLARGINE,HUM.REC.ANLOG 1,000 UNIT/10 ML VIAL SUBCUT SCH (10:00)
[2019-09-01] MEDS: INSULIN GLARGINE,HUM.REC.ANLOG 1,000 UNIT/10 ML VIAL SUBCUT SCH (10:03)
[2019-09-01] MEDS: RINGERS SOLUTION,LACTATED 1,000 ML IV PRN (13:34)
[2019-09-01] MEDS ORDERED: NORMAL SALINE 1000 ML 1,000 ML IV ONE (16:15)
--- NOTE | 2019-09-01 17:57 | PDOC PROGRESS REPORT ---
Subjective Progress Note for:: 09/01/19 Subjective:: Still feels very fatigued and not eating much. Denies any shortness of breath or chest pain at this time. Denies any pain whatsoever this morning on my encounter. States that she just completed radiation treatment to the brain after having 10 cycles. Reason For Visit: SEVERE CALORIE MALNUTRITION,DEHYDRATION, Physical Exam Vital Signs: Temp Pulse Resp BP Pulse Ox 98.6 F 101 H 17 111/61 96 09/01/19 10:39 09/01/19 10:39 09/01/19 10:39 09/01/19 10:39 09/01/19 10:39 Intake & Output 08/31/19 09/01/19 09/02/19 06:59 06:59 06:59 Intake Total 1240 1225 Balance 1240 1225 Weight 72 kg 60.328 kg General appearance: PRESENT: no acute distress, cooperative, other - Appears very fatigued Neck exam: ABSENT: JVD Respiratory exam: PRESENT: clear to auscultation debbie, unlabored. ABSENT: chest wall tenderness, tachypnea, wheezes Cardiovascular exam: PRESENT: +S1, +S2, tachycardia. ABSENT: irregular rhythm GI/Abdominal exam: PRESENT: normal bowel sounds, soft. ABSENT: rebound, rigid, tenderness Neurological exam: PRESENT: alert, awake Results Laboratory Results: 09/01/19 04:13 09/01/19 04:13 08/31/19 09/01/19 09/01/19 18:27 04:13 04:13 WBC 4.7 RBC 3.40 L Hgb 11.5 L Hct 32.4 L MCV 95 MCH 33.9 H MCHC 35.5 RDW 19.5 H Plt Count 71 L Seg Neutrophils % Not Reportable Carbonic Acid 1.10 HCO3/H2CO3 Ratio 18:1 ABG pH 7.37 ABG pCO2 36.5 ABG pO2 121.2 H ABG HCO3 20.5 ABG O2 Saturation 98.3 H ABG Base Excess -4.3 FiO2 32% Sodium 131.0 L Potassium 3.8 D Chloride 96 L Carbon Dioxide 26 Anion Gap 9 BUN 23 H Creatinine 0.68 Est GFR ( Amer) > 60 Glucose 213 H Calcium 9.0 Phosphorus 3.0 Magnesium 2.2 TSH 09/01/19 04:13 WBC RBC Hgb Hct MCV MCH MCHC RDW Plt Count Seg Neutrophils % Carbonic Acid HCO3/H2CO3 Ratio ABG pH ABG pCO2 ABG pO2 ABG HCO3 ABG O2 Saturation ABG Base Excess FiO2 Sodium Potassium Chloride Carbon Dioxide Anion Gap BUN Creatinine Est GFR ( Amer) Glucose Calcium Phosphorus Magnesium TSH 0.95 08/31/19 08/31/19 11:56 11:56 Creatine Kinase 142 H CK-MB (CK-2) 0.95 Troponin I < 0.012 Impressions: Chest X-Ray 08/31/19 16:14 IMPRESSION: NO ACUTE RADIOGRAPHIC FINDING IN THE CHEST. Head CT 08/31/19 16:14 IMPRESSION: Persistent vasogenic edema indicating an underlying metastasis in the left parietal lobe, not significantly changed from previous examination. No acute intracranial hemorrhage, mass, or evidence of acute territorial infarct. Moderate chronic small vessel ischemic change. EVIDENCE OF ACUTE STROKE: NO. Assessment and Plan - Diagnosis (1) Failure to thrive Qualifiers: Failure to thrive age range: in adult Qualified Code(s): R62.7 - Adult failure to thrive Is this a current diagnosis for this admission?: Yes Plan: Characterized by generalized weakness, loss of appetite, mild-moderate protein caloric malnutrition Likely secondary to patient's underlying malignancy I have resumed patient's dexamethasone 4 mg every 6 hours which should help with appetite stimulation Ensure supplements with meals Oncology consulted Physical therapy (2) Hyponatremia Is this a current diagnosis for this admission?: Yes Plan: Corrected sodium of 129 on admission. Hypovolemic hyponatremia secondary to dehydration and poor caloric intake. Substantial response noted to IV fluid boluses. 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 Sliding scale coverage. (4) Breast cancer metastasized to brain Qualifiers: Laterality: unspecified laterality Qualified Code(s): C50.919 - Malignant neoplasm of unspecified site of unspecified female breast; C79.31 - Secondary malignant neoplasm of brain Is this a current diagnosis for this admission?: Yes Plan: History of metastatic breast cancer to the brain and other sites. Primary oncologist is Dr. Ocampo. Patient states she has completed 10 cycles of brain radiation. Continue exemestane. dexamethasone. Oncology consulted. (5) HTN (hypertension) Qualifiers: Hypertension type: essential hypertension Qualified Code(s): I10 - Essential (primary) hypertension Is this a current diagnosis for this admission?: Yes Plan: Currently normotensive but may be due to dehydration. Can resume antihypertensives gradually as blood pressure tolerates. - Time Time Spent with patient: 15-24 minutes
--- NOTE | 2019-09-01 18:07 | EKG REPORT ---
SEVERITY:- ABNORMAL ECG - SINUS TACHYCARDIA ABNORMAL T, CONSIDER ISCHEMIA, LATERAL LEADS : Confirmed by: Levar Abreu MD 01-Sep-2019 18:06:54
[2019-09-01] MEDS: DEXAMETHASONE 4 MG TABLET PO SCH ×2 (18:09→23:09)
[2019-09-01] MEDS: SIMVASTATIN 40 MG TABLET PO SCH (22:42)
[2019-09-02 05:34] LABS: ANION GAP 6 (5-19); BLOOD UREA NITROGEN 19 mg/dL (7-20); CALCIUM 8.7 mg/dL (8.4-10.2); CARBON DIOXIDE 29 mmol/L (22-30); CHLORIDE 101 mmol/L (98-107); GLUCOSE 196 mg/dL (75-110); POTASSIUM 4.4 mmol/L (3.6-5.0)
[2019-09-02] MEDS: HEPARIN SOD (PORCINE) 5,000 UNIT/ML 1 ML VIAL SUBCUT SCH ×3 (06:12→21:33)
[2019-09-02] MEDS: PANTOPRAZOLE SODIUM 40 MG TABLET.DR PO SCH (06:15)
[2019-09-02] MEDS: DEXAMETHASONE 4 MG TABLET PO SCH ×4 (06:16→23:27)
[2019-09-02] MEDS: INSULIN LISPRO 100 UNIT/ML 3 ML VIAL SUBCUT SCH ×4 (07:48→21:32)
[2019-09-02] MEDS: GABAPENTIN 300 MG CAPSULE PO SCH ×2 (09:45→17:31)
[2019-09-02] MEDS: DOCUSATE SODIUM 100 MG CAPSULE PO SCH (09:45)
[2019-09-02] MEDS: FAMOTIDINE 20 MG TABLET PO SCH ×2 (09:45→21:32)
[2019-09-02] MEDS: MULTIVITAMIN TABLET PO SCH (09:45)
[2019-09-02] MEDS: INSULIN GLARGINE,HUM.REC.ANLOG 1,000 UNIT/10 ML VIAL SUBCUT SCH (09:45)
--- NOTE | 2019-09-02 17:26 | PDOC CONSULTATION ---
Consultation Consult Date: 09/02/19 Provider Consulted: LAURA GRIMES Consult reason:: Hematology/Oncology consultation was requested for patient with breast cancer, brain metastases and failure to thrive. History of Present Illness Admission Date/PCP: 08/31/19 20:03 ARASH SAMUELS NP History of Present Illness: KIM CROSS is a 78 year old female with a history of metastatic breast can er. She recently completed a course of whole brain radiation (10 treatments) and presented to the ED with weakness and poor appetite. No fevers. No chest pain, No dyspnea. She was admitted for physical therapy and aggressive fluids and caloric intake. Today, nurses report that her sugars have been very high. However, she is starting to eat a bit better this afternoon. She was able to get up to the bedside commode earlier and had 2 BMs. She denies any pain currently. Past Medical History Cardiac Medical History: Reports: Hypertension Denies: Congestive Heart Failure, Coronary Artery Disease, Myocardial Infarction Pulmonary Medical History: Reports: Asthma - MILD, Pneumonia Denies: Bronchitis, Chronic Obstructive Pulmonary Disease (COPD) Neurological Medical History: Denies: Seizures Endocrine Medical History: Reports: Diabetes Mellitus Type 2 - insulin dependent Denies: Hypothyroidism Malignancy Medical History: Reports: Breast Cancer - bone and brain mets, Skin Cancer GI Medical History: Denies: Hepatitis, Hiatal Hernia Musculoskeltal Medical History: Reports: Arthritis - OSTEO, HANDS, KNEES, Other - Bone metastases Psychiatric Medical History: Denies: Depression Hematology: Reports: Anemia Denies: Sickle Cell Disease Past Surgical History Past Surgical History: Reports: Appendectomy, Hysterectomy, Orthopedic Surgery - kyphoplasty, Tonsillectomy - addnoids, Other - Breast lumpectomy Denies: Amputation, Mastectomy - LUMPECTOMY NO MASTECTOMY, Pacemaker Social History Lives with: Alone Smoking Status: Smoker,Current Status Unk Frequency of Alcohol Use: Rare Hx Recreational Drug Use: No Drugs: None Hx Prescription Drug Abuse: No - Advance Directive Resuscitation Status: Do Not Resuscitate Family History Family History: Reviewed & Not Pertinent, Malignancy Parental Family History Reviewed: Yes Children Family History Reviewed: No Sibling(s) Family History Reviewed.: Yes Medication/Allergy Home Medications: Exemestane 25 mg PO QAM 07/25/19 Gabapentin [Neurontin 300 mg Capsule] 300 mg PO BID 07/25/19 Lisinopril [Zestril] 5 mg PO QAM 07/25/19 Metformin HCl [Metformin HCl ER] 500 mg PO BID 07/25/19 Omeprazole 40 mg PO QAM 07/25/19 Ranitidine HCl [Zantac] 150 mg PO BID 07/25/19 Simvastatin 20 mg PO QPM 07/25/19 Dexamethasone [Decadron 4 mg Tablet] 4 mg PO Q6 #120 tablet 07/27/19 Insulin Aspart [Novolog Flexpen] 1 - 12 unit SUBCUT ACHS #1 pen 07/27/19 Insulin Detemir [Levemir] 80 units SQ BID 08/31/19 Allergies/Adverse Reactions: benzalkonium chloride [From Merthiolate (benzalkonium)] Allergy (Unknown, Verified 08/31/19 16:21) nickel Allergy (Unknown, Verified 08/31/19 16:21) latex Allergy (Verified 08/31/19 16:21) Penicillins Allergy (Verified 08/31/19 16:21) BEES Allergy (Mild, Uncoded 08/31/19 16:21) Review of Systems Constitutional: PRESENT: weight loss. ABSENT: fever(s), headache(s) Eyes: ABSENT: visual disturbances Ears: ABSENT: hearing changes Nose, Mouth, and Throat: PRESENT: sore throat Respiratory: ABSENT: dyspnea Gastrointestinal: ABSENT: constipation, nausea Genitourinary: ABSENT: dysuria Integumentary: ABSENT: rash Neurological: PRESENT: weakness Hematologic/Lymphatic: ABSENT: easy bleeding Physical Exam Vital Signs: Temp Pulse Resp BP Pulse Ox 98.1 F 98 19 126/64 H 96 09/02/19 12:00 09/02/19 12:00 09/02/19 12:00 09/02/19 12:00 09/02/19 12:00 Intake & Output 09/01/19 09/02/19 09/03/19 06:59 06:59 07:59 Intake Total 1240 1465 Balance 1240 1465 Weight 72 kg 65.5 kg General appearance: PRESENT: no acute distress, well-developed, well-nourished Head exam: PRESENT: other - echymoses over right eye Eye exam: PRESENT: EOMI Mouth exam: PRESENT: tongue midline Throat exam: ABSENT: tonsillar erythema, tonsillar exudate Neck exam: ABSENT: lymphadenopathy, tenderness Respiratory exam: PRESENT: clear to auscultation debbie, unlabored Cardiovascular exam: PRESENT: RRR GI/Abdominal exam: PRESENT: soft. ABSENT: tenderness Extremities exam: ABSENT: pedal edema Neurological exam: PRESENT: alert, awake Psychiatric exam: PRESENT: appropriate affect Skin exam: PRESENT: normal color Results Laboratory Results: 09/01/19 04:13 09/02/19 04:17 09/02/19 04:17 Sodium 135.9 L Potassium 4.4 Chloride 101 Carbon Dioxide 29 Anion Gap 6 BUN 19 Creatinine 0.64 Est GFR ( Amer) > 60 Glucose 196 H Calcium 8.7 08/31/19 08/31/19 11:56 11:56 Creatine Kinase 142 H CK-MB (CK-2) 0.95 Troponin I < 0.012 Impressions: Chest X-Ray 08/31/19 16:14 IMPRESSION: NO ACUTE RADIOGRAPHIC FINDING IN THE CHEST. Head CT 08/31/19 16:14 IMPRESSION: Persistent vasogenic edema indicating an underlying metastasis in the left parietal lobe, not significantly changed from previous examination. No acute intracranial hemorrhage, mass, or evidence of acute territorial infarct. Moderate chronic small vessel ischemic change. EVIDENCE OF ACUTE STROKE: NO. Assessment & Plan - Diagnosis (1) Breast cancer metastasized to brain Qualifiers: Laterality: unspecified laterality Qualified Code(s): C50.919 - Malignant neoplasm of unspecified site of unspecified female breast; C79.31 - Secondary malignant neoplasm of brain Is this a current diagnosis for this admission?: Yes Plan: She has completed brain radiation. She is currently on Dexamethasone 4 mg PO q 6 hours. I would continue this dose for now, and slowly wean over the next week. (2) Failure to thrive Qualifiers: Failure to thrive age range: in adult Qualified Code(s): R62.7 - Adult failure to thrive Is this a current diagnosis for this admission?: Yes Plan: Continue to encourage nutrition. 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 Will follow. - Plan Summary Plan Summary: Continue her antiestrogen therapy. Further therapy for the cancer to be disc ussed as outpatient. I will add Magic Mouthwash for her sore throat.
--- NOTE | 2019-09-02 18:10 | PDOC PROGRESS REPORT ---
Subjective Progress Note for:: 09/02/19 Subjective:: No adverse events overnight. She still does not have much of an appetite and had not touched her lunch even though it had been sitting there for about 25 minutes by the time I came into the room. She said that no one had told her the results of her head CT that was done in the ER yet, so I relayed those results to her. Reason For Visit: SEVERE CALORIE MALNUTRITION,DEHYDRATION, Physical Exam Vital Signs: Temp Pulse Resp BP Pulse Ox 98.3 F 99 19 130/81 H 100 09/02/19 16:00 09/02/19 16:00 09/02/19 16:00 09/02/19 16:00 09/02/19 16:00 Intake & Output 09/01/19 09/02/19 09/03/19 06:59 06:59 07:59 Intake Total 1240 1465 650 Balance 1240 1465 650 Weight 72 kg 65.5 kg General appearance: PRESENT: no acute distress, cooperative, other - Appears very fatigued, bruise on the right side of her forehead appears old Neck exam: ABSENT: JVD Respiratory exam: PRESENT: clear to auscultation debbie, unlabored. ABSENT: chest wall tenderness, tachypnea, wheezes Cardiovascular exam: PRESENT: +S1, +S2, tachycardia. ABSENT: irregular rhythm GI/Abdominal exam: PRESENT: normal bowel sounds, soft. ABSENT: rebound, rigid, tenderness Neurological exam: PRESENT: alert, awake Results Laboratory Results: 09/01/19 04:13 09/02/19 04:17 09/02/19 04:17 Sodium 135.9 L Potassium 4.4 Chloride 101 Carbon Dioxide 29 Anion Gap 6 BUN 19 Creatinine 0.64 Est GFR ( Amer) > 60 Glucose 196 H Calcium 8.7 08/31/19 08/31/19 11:56 11:56 Creatine Kinase 142 H CK-MB (CK-2) 0.95 Troponin I < 0.012 Impressions: Chest X-Ray 08/31/19 16:14 IMPRESSION: NO ACUTE RADIOGRAPHIC FINDING IN THE CHEST. Head CT 08/31/19 16:14 IMPRESSION: Persistent vasogenic edema indicating an underlying metastasis in the left parietal lobe, not significantly changed from previous examination. No acute intracranial hemorrhage, mass, or evidence of acute territorial infarct. Moderate chronic small vessel ischemic change. EVIDENCE OF ACUTE STROKE: NO. Assessment and Plan - Diagnosis (1) Breast cancer metastasized to brain Qualifiers: Laterality: unspecified laterality Qualified Code(s): C50.919 - Malignant neoplasm of unspecified site of unspecified female breast; C79.31 - Secondary malignant neoplasm of brain Is this a current diagnosis for this admission?: Yes Plan: She has completed radiation treatment. She was started back on some Decadron. Oncology has been consulted and their recommendations are noted. We will continue the current dose and slowly taper over the next week. (2) Dehydration Is this a current diagnosis for this admission?: Yes Plan: Continue IV fluids until her oral intake picks up. (3) Hyperglycemia due to type 2 diabetes mellitus Qualifiers: Diabetes mellitus extermination inspector insulin use: with extermination inspector use Qualified Code(s): E11.65 - Type 2 diabetes mellitus with hyperglycemia; Z79.4 - terminal supervisor (current) use of insulin Is this a current diagnosis for this admission?: Yes Plan: Most likely from the steroid therapy because her appetite is not been very good at all. We will be careful with her insulin coverage so we do not make her hypoglycemic unintentionally. (4) Severe protein-calorie malnutrition Is this a current diagnosis for this admission?: Yes Plan: Have encouraged her to increase her p.o. intake even though she does not feel like it, and have asked her family to encourage her while they are in the room with her. - Time Time Spent with patient: 15-24 minutes
[2019-09-02] MEDS ORDERED: NYSTATIN/DEXAMETH/DIPHEN SUSP 120 ML PO PRN (18:51)
[2019-09-02] MEDS: SIMVASTATIN 40 MG TABLET PO SCH (21:32)
[2019-09-02] MEDS: ACETAMINOPHEN 325 MG TABLET PO PRN (21:52)
[2019-09-02 22:34] LABS: APPEARANCE,URINE SLIGHTLY-CLOUDY; BILIRUBIN,URINE NEGATIVE (NEGATIVE); COLOR,URINE YELLOW; GLUCOSE, URINE >=500 mg/dL (NEGATIVE); KETONES,URINE NEGATIVE (NEGATIVE); PROTEIN,URINE NEGATIVE (NEGATIVE); URINE SPECIFIC GRAVITY 1.006; UROBILINOGEN,URINE NEGATIVE mg/dL (<2.0)
[2019-09-03] MEDS: PANTOPRAZOLE SODIUM 40 MG TABLET.DR PO SCH (05:30)
[2019-09-03] MEDS: DEXAMETHASONE 4 MG TABLET PO SCH ×3 (05:30→22:28)
[2019-09-03] MEDS: HEPARIN SOD (PORCINE) 5,000 UNIT/ML 1 ML VIAL SUBCUT SCH ×3 (05:30→22:21)
[2019-09-03] MEDS: INSULIN LISPRO 100 UNIT/ML 3 ML VIAL SUBCUT SCH ×6 (07:50→22:27)
[2019-09-03] MEDS: NORMAL SALINE 1000 ML 1,000 ML IV PRN ×2 (07:59→17:02)
[2019-09-03] MEDS: DOCUSATE SODIUM 100 MG CAPSULE PO SCH (09:38)
[2019-09-03] MEDS: INSULIN GLARGINE,HUM.REC.ANLOG 1,000 UNIT/10 ML VIAL SUBCUT SCH (09:38)
[2019-09-03] MEDS: MULTIVITAMIN TABLET PO SCH (09:38)
[2019-09-03] MEDS: FAMOTIDINE 20 MG TABLET PO SCH ×2 (09:38→22:28)
[2019-09-03] MEDS: GABAPENTIN 300 MG CAPSULE PO SCH ×2 (09:38→17:02)
--- NOTE | 2019-09-03 18:07 | PDOC PROGRESS REPORT ---
Subjective Progress Note for:: 09/03/19 Subjective:: No adverse events overnight. No new complaints. Her appetite has improved and she is eaten most of her food today. She said that she was able to get up into the chair by herself with someone in the room to monitor her and she did so without incident. Reason For Visit: SEVERE CALORIE MALNUTRITION,DEHYDRATION, Physical Exam Vital Signs: Temp Pulse Resp BP Pulse Ox 97.4 F 93 18 131/75 H 98 09/03/19 16:00 09/03/19 16:00 09/03/19 16:00 09/03/19 16:00 09/03/19 16:00 Intake & Output 09/02/19 09/03/19 09/04/19 05:59 06:59 06:59 Intake Total 1000 Output Total Balance 1000 Weight General appearance: PRESENT: no acute distress, cooperative, other - Appears very fatigued, bruise on the right side of her forehead appears old Neck exam: ABSENT: JVD Respiratory exam: PRESENT: clear to auscultation debbie, unlabored. ABSENT: chest wall tenderness, tachypnea, wheezes Cardiovascular exam: PRESENT: +S1, +S2, tachycardia. ABSENT: irregular rhythm GI/Abdominal exam: PRESENT: normal bowel sounds, soft. ABSENT: rebound, rigid, tenderness Neurological exam: PRESENT: alert, awake Results Laboratory Results: 09/01/19 04:13 09/02/19 04:17 09/02/19 22:09 Urine Color YELLOW Urine Appearance SLIGHTLY-CLOUDY Urine pH 6.0 Ur Specific [place] 1.006 Urine Protein NEGATIVE Urine Glucose (UA) >=500 H Urine Ketones NEGATIVE Urine Blood NEGATIVE Urine RBC (Auto) 4 08/31/19 08/31/19 11:56 11:56 Creatine Kinase 142 H CK-MB (CK-2) 0.95 Troponin I < 0.012 Impressions: Chest X-Ray 08/31/19 16:14 IMPRESSION: NO ACUTE RADIOGRAPHIC FINDING IN THE CHEST. Head CT 08/31/19 16:14 IMPRESSION: Persistent vasogenic edema indicating an underlying metastasis in the left parietal lobe, not significantly changed from previous examination. No acute intracranial hemorrhage, mass, or evidence of acute territorial infarct. Moderate chronic small vessel ischemic change. EVIDENCE OF ACUTE STROKE: NO. Assessment and Plan - Diagnosis (1) Breast cancer metastasized to brain Qualifiers: Laterality: unspecified laterality Qualified Code(s): C50.919 - Malignant neoplasm of unspecified site of unspecified female breast; C79.31 - Secondary malignant neoplasm of brain Is this a current diagnosis for this admission?: Yes Plan: She has completed radiation treatment. She was started back on some Decadron. Oncology has been consulted and their recommendations are noted. We will continue the current dose and slowly taper over the next week. (2) Dehydration Is this a current diagnosis for this admission?: Yes Plan: Resolved. IV fluids will be stopped. Will encourage oral hydration. (3) Hyperglycemia due to type 2 diabetes mellitus Qualifiers: Diabetes mellitus extermination supervisor insulin use: with extermination supervisor use Qualified Code(s): E11.65 - Type 2 diabetes mellitus with hyperglycemia; Z79.4 - extermination supervisor (current) use of insulin Is this a current diagnosis for this admission?: Yes Plan: Increase her pre-meal insulin to include a fixed dose plus a sliding scale. (4) Severe protein-calorie malnutrition Is this a current diagnosis for this admission?: Yes Plan: Oral intake is improving. We will continue to encourage ambulation. Hopefully will be able to discharge home soon with home health. - Time Time Spent with patient: 15-24 minutes
--- NOTE | 2019-09-03 19:04 | CDI QUERY ---
CDI Query CDI Review: Dear Provider: To better reflect your patients severity of illness, morbidity, and resource utilization Please specify and document in the Progress Notes and Discharge Summary if you are monitoring / treating / evaluating any of the following conditions: Query Clinical indicators Please clarify and document in your Progress notes and Discharge Summary if you think this patients complications and admission for their treatment are due to the Metastatic brain cancer (or the treatment of) . Unable to determine Other Per H&P: Patient is currently undergoing brain radiation for her breast cancer metastases and these were again visualized on head CT on day of admission. She has notable labs for hyperkalemia, hyponatremia, and blood sugar in the 400s. She states she quit taking her home insulin because she has been eating little or no food for several days due to loss of appetite which she relates to radiation treatment. Diagnoses: Severe protein-calorie malnutrition Hyperglycemia due to type 2 diabetes -Patient stopped taking insulin when she stopped eating food a few days prior to admission Hyperkalemia Hyponatremia Failure to thrive Dehydration Loss of appetite Breast cancer metastasized to brain -Brain mets seen on head CT, unclear if these are significantly changed from previous imaging Per Progress Note: She was started back on some Decadron. Oncology has been consulted and their recommendations are noted. The terms probable, suspected, likely, possible or still to be ruled out may be used if you are unable to determine the exact nature of a condition. Thank you, Clinical Documentation Physician [employer]visors BLAYNE Shannon RN, BSN RN Office [phone] Office [phone]
[2019-09-03] MEDS: SIMVASTATIN 40 MG TABLET PO SCH (22:28)
[2019-09-04] MEDS: ACETAMINOPHEN 325 MG TABLET PO PRN (00:17)
[2019-09-04] MEDS: NORMAL SALINE 1000 ML 1,000 ML IV PRN ×2 (00:17→21:33)
[2019-09-04] MEDS: HEPARIN SOD (PORCINE) 5,000 UNIT/ML 1 ML VIAL SUBCUT SCH ×3 (05:09→21:13)
[2019-09-04] MEDS: DEXAMETHASONE 4 MG TABLET PO SCH ×3 (05:53→21:18)
[2019-09-04] MEDS: PANTOPRAZOLE SODIUM 40 MG TABLET.DR PO SCH (05:53)
[2019-09-04] MEDS: INSULIN LISPRO 100 UNIT/ML 3 ML VIAL SUBCUT SCH ×7 (08:11→21:18)
--- NOTE | 2019-09-04 08:18 | PDOC PROGRESS REPORT ---
Subjective Progress Note for:: 09/04/19 Subjective:: Patient feels stronger today, had a better day yesterday, eating more feels hungry this morning Reason For Visit: SEVERE CALORIE MALNUTRITION,DEHYDRATION, Physical Exam Vital Signs: Temp Pulse Resp BP Pulse Ox 97.3 F 87 18 151/88 H 95 09/03/19 23:52 09/03/19 23:52 09/03/19 23:52 09/03/19 23:52 09/03/19 23:52 Intake & Output 09/03/19 09/04/19 09/05/19 06:59 06:59 06:59 Intake Total 3170 Output Total 950 Balance 2220 Weight 65.3 kg General appearance: PRESENT: no acute distress, well-developed, well-nourished Head exam: PRESENT: atraumatic, normocephalic Eye exam: PRESENT: conjunctiva pink, EOMI, PERRLA. ABSENT: scleral icterus Ear exam: PRESENT: normal external ear exam Mouth exam: PRESENT: moist, tongue midline Neck exam: ABSENT: carotid bruit, JVD, lymphadenopathy, thyromegaly Respiratory exam: PRESENT: clear to auscultation debbie. ABSENT: rales, rhonchi, wheezes Cardiovascular exam: PRESENT: RRR. ABSENT: diastolic murmur, rubs, systolic murmur Pulses: PRESENT: normal dorsalis pedis pul Vascular exam: PRESENT: normal capillary refill GI/Abdominal exam: PRESENT: normal bowel sounds, soft. ABSENT: distended, guarding, mass, organolmegaly, rebound, tenderness Rectal exam: PRESENT: deferred Extremities exam: PRESENT: full ROM. ABSENT: calf tenderness, clubbing, pedal edema Neurological exam: PRESENT: alert, awake, oriented to person, oriented to place, oriented to time, oriented to situation, CN II-XII grossly intact. ABSENT: motor sensory deficit Psychiatric exam: PRESENT: appropriate affect, normal mood. ABSENT: homicidal ideation, suicidal ideation Skin exam: PRESENT: dry, intact, warm. ABSENT: cyanosis, rash Results Laboratory Results: 09/01/19 04:13 09/02/19 04:17 08/31/19 08/31/19 11:56 11:56 Creatine Kinase 142 H CK-MB (CK-2) 0.95 Troponin I < 0.012 Impressions: Chest X-Ray 08/31/19 16:14 IMPRESSION: NO ACUTE RADIOGRAPHIC FINDING IN THE CHEST. Head CT 08/31/19 16:14 IMPRESSION: Persistent vasogenic edema indicating an underlying metastasis in the left parietal lobe, not significantly changed from previous examination. No acute intracranial hemorrhage, mass, or evidence of acute territorial infarct. Moderate chronic small vessel ischemic change. EVIDENCE OF ACUTE STROKE: NO. Assessment & Plan - Diagnosis (1) Breast cancer metastasized to brain Qualifiers: Laterality: unspecified laterality Qualified Code(s): C50.919 - Malignant neoplasm of unspecified site of unspecified female breast; C79.31 - Secondary malignant neoplasm of brain Is this a current diagnosis for this admission?: Yes Plan: Status post brain radiation, poor appetite and weakness secondary to this. Will improve. (2) Failure to thrive Qualifiers: Failure to thrive age range: in adult Qualified Code(s): R62.7 - Adult failure to thrive Is this a current diagnosis for this admission?: Yes Plan: Secondary to recent brain radiation, getting better (3) Loss of appetite Is this a current diagnosis for this admission?: Yes Plan: Improving (4) Severe protein-calorie malnutrition Is this a current diagnosis for this admission?: Yes Plan: P.o. intake improving now that appetite is slowly improving - Time Time Spent with patient: 35 or more minutes
[2019-09-04] MEDS: DOCUSATE SODIUM 100 MG CAPSULE PO SCH (12:53)
[2019-09-04] MEDS: GABAPENTIN 300 MG CAPSULE PO SCH ×2 (12:54→17:14)
[2019-09-04] MEDS: FAMOTIDINE 20 MG TABLET PO SCH ×2 (12:54→21:18)
[2019-09-04] MEDS: MULTIVITAMIN TABLET PO SCH (12:54)
[2019-09-04] MEDS: INSULIN GLARGINE,HUM.REC.ANLOG 1,000 UNIT/10 ML VIAL SUBCUT SCH (12:55)
--- NOTE | 2019-09-04 18:30 | PDOC PROGRESS REPORT ---
Subjective Progress Note for:: 09/04/19 Subjective:: No adverse events overnight. No new complaints. Was very tired this afternoon and was napping a lot. Reason For Visit: SEVERE CALORIE MALNUTRITION,DEHYDRATION, Physical Exam Vital Signs: Temp Pulse Resp BP Pulse Ox 97.4 F 90 16 155/82 H 98 09/04/19 16:00 09/04/19 16:00 09/04/19 16:00 09/04/19 16:00 09/04/19 16:00 Intake & Output 09/03/19 09/04/19 09/05/19 06:59 06:59 06:59 Intake Total 3170 240 Output Total 950 1000 Balance 2220 -760 Weight 65.3 kg General appearance: PRESENT: no acute distress, cooperative, other - Appears very fatigued, bruise on the right side of her forehead appears old Neck exam: ABSENT: JVD Respiratory exam: PRESENT: clear to auscultation debbie, unlabored. ABSENT: chest wall tenderness, tachypnea, wheezes Cardiovascular exam: PRESENT: +S1, +S2, tachycardia. ABSENT: irregular rhythm GI/Abdominal exam: PRESENT: normal bowel sounds, soft. ABSENT: rebound, rigid, tenderness Neurological exam: PRESENT: alert, awake Results Laboratory Results: 09/01/19 04:13 09/02/19 04:17 08/31/19 08/31/19 11:56 11:56 Creatine Kinase 142 H CK-MB (CK-2) 0.95 Troponin I < 0.012 Impressions: Chest X-Ray 08/31/19 16:14 IMPRESSION: NO ACUTE RADIOGRAPHIC FINDING IN THE CHEST. Head CT 08/31/19 16:14 IMPRESSION: Persistent vasogenic edema indicating an underlying metastasis in the left parietal lobe, not significantly changed from previous examination. No acute intracranial hemorrhage, mass, or evidence of acute territorial infarct. Moderate chronic small vessel ischemic change. EVIDENCE OF ACUTE STROKE: NO. Assessment and Plan - Diagnosis (1) Breast cancer metastasized to brain Qualifiers: Laterality: unspecified laterality Qualified Code(s): C50.919 - Malignant neoplasm of unspecified site of unspecified female breast; C79.31 - Secondary malignant neoplasm of brain Is this a current diagnosis for this admission?: Yes Plan: She has completed radiation treatment. She was started back on some Decadron. Oncology has been consulted and their recommendations are noted. We will continue the current dose and slowly taper over the next week. (2) Dehydration Is this a current diagnosis for this admission?: Yes Plan: Resolved. IV fluids will be stopped. Will encourage oral hydration. (3) Hyperglycemia due to type 2 diabetes mellitus Qualifiers: Diabetes mellitus nursing home insulin use: with manager intermediate use Qualified Code(s): E11.65 - Type 2 diabetes mellitus with hyperglycemia; Z79.4 - termination clerk (current) use of insulin Is this a current diagnosis for this admission?: Yes Plan: Increase her pre-meal insulin to include a fixed dose plus a sliding scale. (4) Severe protein-calorie malnutrition Is this a current diagnosis for this admission?: Yes Plan: Oral intake is improving. We will continue to encourage ambulation. Hopefully will be able to discharge home soon with home health. - Time Time Spent with patient: 15-24 minutes
[2019-09-04] MEDS: SIMVASTATIN 40 MG TABLET PO SCH (21:18)
[2019-09-05] MEDS: HEPARIN SOD (PORCINE) 5,000 UNIT/ML 1 ML VIAL SUBCUT SCH ×2 (05:13→13:24)
[2019-09-05] MEDS: PANTOPRAZOLE SODIUM 40 MG TABLET.DR PO SCH (05:34)
[2019-09-05] MEDS: DEXAMETHASONE 4 MG TABLET PO SCH ×2 (05:34→13:42)
[2019-09-05] MEDS: INSULIN LISPRO 100 UNIT/ML 3 ML VIAL SUBCUT SCH ×6 (08:14→16:28)
--- NOTE | 2019-09-05 08:28 | PDOC PROGRESS REPORT ---
Subjective Progress Note for:: 09/05/19 Subjective:: Patient is in good spirits. She received a hair cut. She is feeling stronger. She walked yesterday. She is anxious to walk again today and then go home. No new complaints. Reason For Visit: SEVERE CALORIE MALNUTRITION,DEHYDRATION, Physical Exam Vital Signs: Temp Pulse Resp BP Pulse Ox 97.6 F 97 18 155/77 H 94 09/05/19 07:39 09/05/19 07:39 09/05/19 07:39 09/05/19 07:39 09/05/19 07:39 Intake & Output 09/04/19 09/05/19 09/06/19 06:59 06:59 06:59 Intake Total 3170 2480 Output Total 950 2800 Balance 2220 -320 Weight 65.3 kg 63.1 kg General appearance: PRESENT: no acute distress Head exam: PRESENT: normocephalic, other - Echymosis unchanged over right eye. Respiratory exam: PRESENT: unlabored Extremities exam: ABSENT: pedal edema Neurological exam: PRESENT: alert, awake Psychiatric exam: PRESENT: appropriate affect Skin exam: PRESENT: normal color Results Laboratory Results: 09/01/19 04:13 09/02/19 04:17 08/31/19 08/31/19 11:56 11:56 Creatine Kinase 142 H CK-MB (CK-2) 0.95 Troponin I < 0.012 Impressions: Chest X-Ray 08/31/19 16:14 IMPRESSION: NO ACUTE RADIOGRAPHIC FINDING IN THE CHEST. Head CT 08/31/19 16:14 IMPRESSION: Persistent vasogenic edema indicating an underlying metastasis in the left parietal lobe, not significantly changed from previous examination. No acute intracranial hemorrhage, mass, or evidence of acute territorial infarct. Moderate chronic small vessel ischemic change. EVIDENCE OF ACUTE STROKE: NO. Assessment & Plan - Diagnosis (1) Breast cancer metastasized to brain Qualifiers: Laterality: unspecified laterality Qualified Code(s): C50.919 - Malignant neoplasm of unspecified site of unspecified female breast; C79.31 - Secondary malignant neoplasm of brain Is this a current diagnosis for this admission?: Yes Plan: s/p whole brain radiation therapy. Doing well. Further treatment to be discussed after discharge. (2) Failure to thrive Qualifiers: Failure to thrive age range: in adult Qualified Code(s): R62.7 - Adult failure to thrive Is this a current diagnosis for this admission?: Yes Plan: She is improving. Continue nutrition supplements. (3) Hyperglycemia due to type 2 diabetes mellitus Qualifiers: Diabetes mellitus rn long term care insulin use: with shelter use Qualified Code(s): E11.65 - Type 2 diabetes mellitus with hyperglycemia; Z79.4 - shelter (current) use of insulin Is this a current diagnosis for this admission?: Yes - Time Time Spent with patient: Less than 15 minutes - Plan Summary Plan Summary: Agree with plans for discharge later today.
[2019-09-05] MEDS: DOCUSATE SODIUM 100 MG CAPSULE PO SCH (09:57)
[2019-09-05] MEDS: FAMOTIDINE 20 MG TABLET PO SCH (09:57)
[2019-09-05] MEDS: MULTIVITAMIN TABLET PO SCH (09:57)
[2019-09-05] MEDS: INSULIN GLARGINE,HUM.REC.ANLOG 1,000 UNIT/10 ML VIAL SUBCUT SCH (09:57)
[2019-09-05] MEDS: GABAPENTIN 300 MG CAPSULE PO SCH (09:57)
[2019-09-05 17:41] VITALS: BP 141/71
--- NOTE | 2019-09-05 18:04 | PDOC DISCHARGE SUMMARY ---
Impression - Admit/DC Date/PCP Admission Date/Primary Care Provider: 08/31/19 20:03 ARASH SAMUELS NP Discharge Date: 09/05/19 - Discharge Diagnosis (1) Breast cancer metastasized to brain Is this a current diagnosis for this admission?: Yes (2) Dehydration Is this a current diagnosis for this admission?: Yes (3) Hyperglycemia due to type 2 diabetes mellitus Is this a current diagnosis for this admission?: Yes (4) Severe protein-calorie malnutrition Is this a current diagnosis for this admission?: Yes - Additional Information Resuscitation Status: Do Not Resuscitate Discharge Diet: Diabetic Discharge Activity: Activity As Tolerated, Balance Activity w/Rest Referrals: ARASH SAMUELS, WALKER [Primary Care Provider] - 09/06/19 8:30 am Prescriptions: Dexamethasone [Decadron 4 mg Tablet] 4 mg PO Q6 #30 tablet Home Medications: Exemestane 25 mg PO QAM 07/25/19 Gabapentin [Neurontin 300 mg Capsule] 300 mg PO BID 07/25/19 Lisinopril [Zestril] 5 mg PO QAM 07/25/19 Metformin HCl [Metformin HCl ER] 500 mg PO BID 07/25/19 Omeprazole 40 mg PO QAM 07/25/19 Ranitidine HCl [Zantac] 150 mg PO BID 07/25/19 Simvastatin 20 mg PO QPM 07/25/19 Insulin Aspart [Novolog Flexpen] 1 - 12 unit SUBCUT ACHS #1 pen 07/27/19 Insulin Detemir [Levemir] 80 units SQ BID 08/31/19 Dexamethasone [Decadron 4 mg Tablet] 4 mg PO Q6 #30 tablet 09/05/19 History of Present Illiness History of Present Illness: KIM CROSS is a 78 year old female with past medical history significant for stage IV widely metastatic breast cancer, T2 DM, history of uterine cancer treated with hysterectomy, and severe malnutrition who presents after being sent to ER by her PCP over concerns of multiple falls at home, poor p.o. intake, and generalized severe weakness. Patient lives alone but has a neighbor who checks on her daily. She has multiple abrasions on her legs from her falls some a few months old but have not healed. Patient is currently undergoing brain radiation for her breast cancer metastases and these were again visualized on head CT on day of admission. Patient states she does not know whether her treatment has been successful or not. She is not currently considering hospice but may be open to it at a later date. She has notable labs for hyperkalemia, hyponat remia, and blood sugar in the 400s. She states she quit taking her home insulin because she has been eating little or no food for several days due to loss of appetite which she relates to radiation treatment. She also states she has not taken any of her medications for several days and states she is no longer on steroid as she was tapered off of this by her physician. Hospital Course Hospital Course: Head MRI showed that she did not have any new areas of metastasis, just residual inflammation and edema in the area of the old mass. She responded well to steroids and had improvements in her energy level and her appetite. She began to eat more and she was working with physical therapy. She did well enough that she could do physical therapy at home. She has a lot of social support. She was able to ambulate well in transfer well with the use of a walker. She will be on a tapering dose of steroids and has close follow-up with her oncologist to manage this. Her labs and examination were reassuring and she was discharged in stable condition. Physical Exam Vital Signs: Temp Pulse Resp BP Pulse Ox 97.9 F 90 17 141/71 H 98 09/05/19 17:39 09/05/19 17:39 09/05/19 17:39 09/05/19 17:39 09/05/19 17:39 Intake & Output 09/04/19 09/05/19 09/06/19 06:59 06:59 06:59 Intake Total 3170 2480 240 Output Total 950 2800 300 Balance 2220 -320 -60 Weight 65.3 kg 63.1 kg General appearance: PRESENT: no acute distress, cooperative, other - Appears very fatigued, bruise on the right side of her forehead appears old Neck exam: ABSENT: JVD Respiratory exam: PRESENT: clear to auscultation debbie, unlabored. ABSENT: chest wall tenderness, tachypnea, wheezes Cardiovascular exam: PRESENT: +S1, +S2, tachycardia. ABSENT: irregular rhythm GI/Abdominal exam: PRESENT: normal bowel sounds, soft. ABSENT: rebound, rigid, tenderness Neurological exam: PRESENT: alert, awake Results Laboratory Results: WBC 4.7 10^3/uL (4.0-10.5) 09/01/19 04:13 RBC 3.40 10^6/uL (3.72-5.28) L 09/01/19 04:13 Hgb 11.5 g/dL (12.0-15.5) L 09/01/19 04:13 Hct 32.4 % (36.0-47.0) L 09/01/19 04:13 MCV 95 fl (80-97) 09/01/19 04:13 MCH 33.9 pg (27.0-33.4) H 09/01/19 04:13 MCHC 35.5 g/dL (32.0-36.0) 09/01/19 04:13 RDW 19.5 % (11.5-14.0) H 09/01/19 04:13 Plt Count 71 10^3/uL (150-450) L 09/01/19 04:13 Lymph % (Auto) Not Reportable 09/01/19 04:13 [place] % (Auto) Not Reportable 09/01/19 04:13 Eos % (Auto) Not Reportable 09/01/19 04:13 Baso % (Auto) Not Reportable 09/01/19 04:13 Absolute Neuts (auto) Not Reportable 09/01/19 04:13 Absolute Lymphs (auto) Not Reportable 09/01/19 04:13 Absolute Monos (auto) Not Reportable 09/01/19 04:13 Absolute Eos (auto) Not Reportable 09/01/19 04:13 Absolute Basos (auto) Not Reportable 09/01/19 04:13 Total Counted 100 09/01/19 04:13 Seg Neutrophils % Not Reportable 09/01/19 04:13 Seg Neuts % (Manual) 87 % (42-78) H 09/01/19 04:13 Band Neutrophils % 3 % (3-5) 09/01/19 04:13 Lymphocytes % (Manual) 2 % (13-45) L 09/01/19 04:13 Atypical Lymphs % 1 % (0) 08/31/19 11:56 Monocytes % (Manual) 6 % (3-13) 09/01/19 04:13 Eosinophils % (Manual) 0 % (0-6) 09/01/19 04:13 Basophils % (Manual) 1 % (0-2) 09/01/19 04:13 Metamyelocytes % 1 % (0-1) 09/01/19 04:13 Abs Neuts (Manual) 4.3 10^3/uL (1.7-8.2) 09/01/19 04:13 Abs Lymphs (Manual) 0.1 10^3/uL (0.5-4.7) L 09/01/19 04:13 Abs Monocytes (Manual) 0.3 10^3/uL (0.1-1.4) 09/01/19 04:13 Absolute Eos (Manual) 0.0 10^3/uL (0.0-0.6) 09/01/19 04:13 Abs Basophils (Manual) 0.0 10^3/uL (0.0-0.2) 09/01/19 04:13 Nucleated RBCs 2 /100 WBC (0) 09/01/19 04:13 Toxic Granulation SLIGHT 09/01/19 04:13 Toxic Vacuolation PRESENT 08/31/19 11:56 Platelet Comment DECREASED 09/01/19 04:13 Polychromasia SLIGHT 08/31/19 11:56 Anisocytosis 2+ 08/31/19 11:56 Tear Drop Cells SLIGHT 09/01/19 04:13 Ovalocytes SLIGHT 09/01/19 04:13 Schistocytes SLIGHT 09/01/19 04:13 Carbonic Acid 1.10 mmol/L (1.05-1.35) 08/31/19 18:27 HCO3/H2CO3 Ratio 18:1 08/31/19 18:27 ABG pH 7.37 (7.35-7.45) 08/31/19 18:27 ABG pCO2 36.5 mmHg (35-45) 08/31/19 18:27 ABG pO2 121.2 mmHg (80-100) H 08/31/19 18:27 ABG HCO3 20.5 mmol/L (20-24) 08/31/19 18:27 ABG Total CO2 21.6 mmol/L (21-25) 08/31/19 18:27 ABG O2 Saturation 98.3 % (94-98) H 08/31/19 18:27 ABG Base Excess -4.3 mmol/L 08/31/19 18:27 FiO2 32% 08/31/19 18:27 Sodium 135.9 mmol/L (137-145) L 09/02/19 04:17 Potassium 4.4 mmol/L (3.6-5.0) 09/02/19 04:17 Chloride 101 mmol/L (98-107) 09/02/19 04:17 Carbon Dioxide 29 mmol/L (22-30) 09/02/19 04:17 Anion Gap 6 (5-19) 09/02/19 04:17 BUN 19 mg/dL (7-20) 09/02/19 04:17 Creatinine 0.64 mg/dL (0.52-1.25) 09/02/19 04:17 Est GFR ( Amer) > 60 (>60) 09/02/19 04:17 Est GFR (MDRD) Non-Af > 60 (>60) 09/02/19 04:17 Glucose 196 mg/dL (75-110) H 09/02/19 04:17 POC Glucose 119 mg/dL (70-110) H 09/05/19 15:14 Hemoglobin A1c % 10.6 % (4.7-6.0) H 09/01/19 04:13 Calcium 8.7 mg/dL (8.4-10.2) 09/02/19 04:17 Phosphorus 3.0 mg/dL (2.5-4.5) 09/01/19 04:13 Magnesium 2.2 mg/dL (1.6-2.3) 09/01/19 04:13 Total Bilirubin 1.7 mg/dL (0.2-1.3) H 08/31/19 11:56 Direct Bilirubin 0.8 mg/dL (0.0-0.4) H 08/31/19 11:56 Neonat Total Bilirubin Not Reportable 08/31/19 11:56 Neonat Direct Bilirubin Not Reportable 08/31/19 11:56 Neonat Indirect Bili Not Reportable 08/31/19 11:56 AST 48 U/L (14-36) H 08/31/19 11:56 ALT 18 U/L (<35) 08/31/19 11:56 Alkaline Phosphatase 176 U/L (38-126) H 08/31/19 11:56 Creatine Kinase 142 U/L (30-135) H 08/31/19 11:56 CK-MB (CK-2) 0.95 ng/mL (<4.55) 08/31/19 11:56 Troponin I < 0.012 ng/mL 08/31/19 11:56 Total Protein 6.5 g/dL (6.3-8.2) 08/31/19 11:56 Albumin 3.5 g/dL (3.5-5.0) 08/31/19 11:56 TSH 0.95 uIU/mL (0.47-4.68) 09/01/19 04:13 Urine Color YELLOW 09/02/19 22:09 Urine Appearance SLIGHTLY-CLOUDY 09/02/19 22:09 Urine pH 6.0 (5.0-9.0) 09/02/19 22:09 Ur Specific [place] 1.006 09/02/19 22:09 Urine Protein NEGATIVE mg/dL (NEGATIVE) 09/02/19 22:09 Urine Glucose (UA) >=500 mg/dL (NEGATIVE) H 09/02/19 22:09 Urine Ketones NEGATIVE mg/dL (NEGATIVE) 09/02/19 22:09 Urine Blood NEGATIVE (NEGATIVE) 09/02/19 22:09 Urine Nitrite NEGATIVE (NEGATIVE) 08/31/19 13:35 Urine Nitrite (Reflex) NEGATIVE (NEGATIVE) 09/02/19 22:09 Urine Bilirubin NEGATIVE (NEGATIVE) 09/02/19 22:09 Urine Urobilinogen NEGATIVE mg/dL (<2.0) 09/02/19 22:09 Ur Leukocyte Esterase MODERATE (NEGATIVE) H 08/31/19 13:35 Leukocyte Esterase Rfl TRACE (NEGATIVE) H 09/02/19 22:09 Urine WBC (Auto) 72 /HPF 08/31/19 13:35 Urine RBC (Auto) 4 /HPF 09/02/19 22:09 U Hyaline Cast (Auto) 26 /LPF 08/31/19 13:35 Urine Bacteria (Auto) 1+ /HPF 09/02/19 22:09 Urine WBC (Reflex) 5 /HPF 09/02/19 22:09 Squamous Epi Cells Auto 2 /HPF 09/02/19 22:09 Calcium Oxalate Cr Auto MODERATE /HPF 08/31/19 13:35 Amorphous Sediment Auto TRACE /HPF 08/31/19 13:35 Urine Mucus (Auto) RARE /LPF 09/02/19 22:09 Urine Yeast (Budding) PRESENT /HPF 03/07/20 22:09 Urine Ascorbic Acid NEGATIVE (NEGATIVE) 09/02/19 22:09 08/31/19 11:56 CK-MB (CK-2) 0.95 Troponin I < 0.012 Impressions: Chest X-Ray 08/31/19 16:14 IMPRESSION: NO ACUTE RADIOGRAPHIC FINDING IN THE CHEST. Head CT 08/31/19 16:14 IMPRESSION: Persistent vasogenic edema indicating an underlying metastasis in the left parietal lobe, not significantly changed from previous examination. No acute intracranial hemorrhage, mass, or evidence of acute territorial infarct. Moderate chronic small vessel ischemic change. EVIDENCE OF ACUTE STROKE: NO. Plan Time Spent: Greater than 30 Minutes Stroke Is this a Stroke Patient?: No Acute Heart Failure - Is this a Heart Failure Patient?: No
== END 2019-09-05 18:20 | disposition home health service (06) | DRG 640 ==
LOC: ER 12:46 → EH 20:03 → 4N 22:31
PROVIDERS: ADMIT Internal Medicine; ATTEND Internal Medicine
DX: E86.0 Dehydration (principal); E43 Unspecified severe protein-calorie malnutrition; C79.31 Secondary malignant neoplasm of brain; C79.51 Secondary malignant neoplasm of bone; E87.1 Hypo-osmolality and hyponatremia; C50.919 Malignant neoplasm of unspecified site of unspecified female breast; E11.65 Type 2 diabetes mellitus with hyperglycemia; S80.812A Abrasion, left lower leg, initial encounter; S80.811A Abrasion, right lower leg, initial encounter; W19.XXXA Unspecified fall, initial encounter; T38.3X6A Underdosing of insulin and oral hypoglycemic [antidiabetic] drugs, initial encounter; Z85.42 Personal history of malignant neoplasm of other parts of uterus; Z90.710 Acquired absence of both cervix and uterus; Z91.81 History of falling; Z60.2 Problems related to living alone; E87.5 Hyperkalemia; Y92.009 Unspecified place in unspecified non-institutional (private) residence as the place of occurrence of the external cause; Z91.128 Patient's intentional underdosing of medication regimen for other reason; Z79.899 Other long term (current) drug therapy; I10 Essential (primary) hypertension; M19.90 Unspecified osteoarthritis, unspecified site; Z66 Do not resuscitate; Z79.4 Long term (current) use of insulin; Z88.0 Allergy status to penicillin; Z88.8 Allergy status to other drugs, medicaments and biological substances; Z91.030 Bee allergy status; Z91.040 Latex allergy status; R62.7 Adult failure to thrive
CPT/HCPCS: 36415; 36600; 70450; 71045; 80048; 80053; 81001; 82550; 82553; 82803; 82962; 83036; 83735; 84100; 84443; 84484; 85025; 93005; 93010; 96361; 96374; 99285; J0610; J1815; J2405; J3490; J7030; J7120; J8540

== ENCOUNTER 2019-09-06 19:11 | Inpatient (IN) | payer MEDICARE, OTHER ==
--- NOTE | 2019-09-06 21:21 | ER Document Report ---
ED General - General Chief Complaint: General Weakness Stated Complaint: WEAKNESS Time Seen by Provider: 09/06/19 20:30 Primary Care Provider: ARASH SAMUELS, [employer]PP[employer]OTT[employer] [Primary Care Provider] - Follow up as needed Notes: 78-year-old female presents emergency department complaining of generalized fatigue, confusion and disorientation. States she is so weak she cannot get up and walk to the bathroom. Patient was discharged from this facility 1 day ago, family states that on discharge she was wide awake, alert, able to walk around without difficulty. Patient had been initially admitted for abnormal blood sugars but found to be off balance and had a CAT scan performed that showed brain swelling from her recent radiation. Patient is a stage IV breast cancer patient with known brain and bone metastases. Patient had been receiving steroids for the swelling, patient has not taken any medications today including her steroids. Denies pain, denies any fevers, denies any nausea, vomiting, diarrhea or dysuria. Denies any cough. Blood sugar was 47 when tested by the family just prior to EMS arrival, orientation did not improve after eating fruit cup or getting glucose from EMS. TRAVEL OUTSIDE OF THE [place] IN LAST 30 DAYS: No - Related Data Allergies/Adverse Reactions: benzalkonium chloride [From Merthiolate (benzalkonium)] Allergy (Unknown, Verified 08/31/19 16:21) nickel Allergy (Unknown, Verified 08/31/19 16:21) latex Allergy (Verified 08/31/19 16:21) Penicillins Allergy (Verified 08/31/19 16:21) BEES Allergy (Mild, Uncoded 08/31/19 16:21) Past Medical History - General Information source: Patient, Relative, Emergency Med Personnel - Social History Smoking Status: Unknown if Ever Smoked Frequency of alcohol use: None Drug Abuse: None Family History: Malignancy Patient has suicidal ideation: No Patient has homicidal ideation: No - Past Medical History Cardiac Medical History: Reports: Hx Hypertension Denies: Hx Congestive Heart Failure, Hx Coronary Artery Disease, Hx Heart Attack Pulmonary Medical History: Reports: Hx Asthma - MILD, Hx Pneumonia Denies: Hx Bronchitis, Hx COPD Neurological Medical History: Denies: Hx Cerebrovascular Accident, Hx Seizures Endocrine Medical History: Reports: Hx Diabetes Mellitus Type 2 - insulin dependent. Denies: Hx Hypothyroidism Renal/ Medical History: Denies: Hx Peritoneal Dialysis Malignancy Medical History: Reports: Hx Breast Cancer - bone and brain mets, Hx Skin Cancer GI Medical History: Denies: Hx Hepatitis, Hx Hiatal Hernia, Hx Ulcer Musculoskeletal Medical History: Reports Hx Arthritis - OSTEO, HANDS, KNEES Psychiatric Medical History: Denies: Hx Depression Infectious Medical History: Denies: Hx Hepatitis Past Surgical History: Reports: Hx Appendectomy, Hx Breast Surgery, Hx Hysterectomy, Hx Orthopedic Surgery - kyphoplasty, Hx Tonsillectomy - addnoids, Other - Breast lumpectomy. Denies: Hx Mastectomy - LUMPECTOMY NO MASTECTOMY, Hx Open Heart Surgery, Hx Pacemaker - Immunizations Hx Diphtheria, Pertussis, Tetanus Vaccination: No Review of Systems - Review of Systems Constitutional: See HPI, Weakness EENT: No symptoms reported Cardiovascular: No symptoms reported Neurological/Psychological: See HPI, Weakness -: Yes All other systems reviewed and negative Physical Exam - Vital signs Vitals: BP 135/54 H 09/06/19 19:39 Interpretation: Tachycardic - Notes Notes: GENERAL: Sleeping, awakens relatively easily, appears sleepy and fatigued throughout our interaction however she is able to answer all of my questions and does not appear to be in any pain. HEAD: Normocephalic, atraumatic. Bald. EYES: Pupils equal, round and reactive to light, extraocular movements intact. ENT: Oral mucosa moist, tongue midline. NECK: Full range of motion, supple, trachea midline. LUNGS: Clear to auscultation bilaterally, no wheezes, rales or rhonchi, no respiratory distress. HEART: Mildly tachycardic but regular rhythm, no murmurs, gallops, rubs. ABDOMEN: Soft, nontender, nondistended, bowel sounds present in all 4 quadrants. EXTREMITIES: Moves all 4 extremities spontaneously, no edema, radial and dorsalis pedis pulses 2/4 bilaterally. No cyanosis. NEUROLOGICAL: Fatigued and oriented x3, normal speech, no facial droop. PSYCH: Normal mood, normal affect. SKIN: Warm, Dry, older appearing abrasions to the anterior shins bilaterally. Course - Re-evaluation Re-evalutation: 09/07/19 00:13 CBC shows worsening anemia with hemoglobin 8.7, worsening thrombocytopenia with a platelet count of 59, no active bleeding at this time, lactic acid normal, VBG does not show acidosis, sodium is once again low at 130.4, this is not as low as it was on admission, BUN bumped to 22, troponin detectable but negative at 0.016, urinalysis unremarkable. Head CT 09/06/19 21:14 IMPRESSION: No acute intracranial abnormality. Specifically, pre-existing vasogenic edema about the left posterior frontal lobe appears similar to the previous CT dated 08/31/2019, previously found to represent sequela of a metastatic focus. Mild chronic microvascular ischemic change with generalized atrophy. Focal lucent lesion located within the left frontal calvarium was previously found to represent a metastatic focus on the previous MR dated 07/24/2019. TECHNICAL DOCUMENTATION: Quality ID # 436: Final reports with documentation of one or more dose reduction techniques (e.g., Automated exposure control, adjustment of the mA and/or kV according to patient size, use of iterative reconstruction technique) copyright 2011 [employer]- All Rights Reserved Chest X-Ray 09/06/19 21:15 IMPRESSION: There are no acute lung parenchymal findings. Note, if there is concern for metastatic process, CT may be considered as a more sensitive evaluation. Patient has had no significant change after IV hydration. Discussed with Dr. Lesli jimenez, suggest giving bolus of IV steroids as the patient has missed her doses of steroids for the past 12 to 24 hours at this point. Am concerned that the patient may be having more cerebral edema causing increasing symptoms though the CAT scan is unchanged compared to admission last week. At present Dr. David levy would like to continue to observe her hemoglobin, give her IV steroids, continue to hydrate her overnight, have her admitted and have her rechecked in the morning. Discussed with Dr. Dodge who agrees to admit the patient to the telemetry care unit. - Vital Signs Vital signs: Temp Pulse Resp BP Pulse Ox 98.6 F 108 H 19 124/62 96 09/06/19 20:28 09/06/19 20:43 09/06/19 20:43 09/06/19 21:00 09/06/19 23:00 - Laboratory Result Diagrams: 09/06/19 21:50 09/06/19 21:50 Laboratory results interpreted by me: 09/06/19 09/06/19 09/06/19 20:52 21:50 21:50 RBC 2.63 L Hgb 8.7 L Hct 26.1 L MCV 99 H D RDW 20.8 H Plt Count 59 L Seg Neuts % (Manual) 90 H Band Neutrophils % 1 L Lymphocytes % (Manual) 4 L Abs Lymphs (Manual) 0.2 L PT 16.2 H VBG pH Sodium Chloride BUN POC Glucose 131 H Calcium Direct Bilirubin AST Alkaline Phosphatase Total Protein Albumin 09/06/19 09/06/19 21:50 21:50 RBC Hgb Hct MCV RDW Plt Count Seg Neuts % (Manual) Band Neutrophils % Lymphocytes % (Manual) Abs Lymphs (Manual) PT VBG pH 7.50 H Sodium 130.4 L Chloride 95 L BUN 22 H POC Glucose Calcium 8.0 L Direct Bilirubin 0.5 H AST 108 H Alkaline Phosphatase 127 H Total Protein 5.4 L Albumin 2.6 L - EKG Interpretation by Me Additional EKG results interpreted by me: 09/06/19 22:43 EKG shows sinus tachycardia at a rate of 101, normal axis, normal intervals, no ST segment elevations, slight ST segment depressions in V3, T wave inversions in 1, aVL, V4 through V6, the ST segment depressions in V3 are new otherwise the EKG is unchanged compared to 09/01/2019 per my interpretation. Discharge - Discharge Clinical Impression: Hyponatremia, Secondary malignant melanoma of brain, Dehydration, Thrombocytopenia, Confusion Breast cancer metastasized to brain Qualifiers: Laterality: unspecified laterality Qualified Code(s): C50.919 - Malignant neoplasm of unspecified site of unspecified female breast; C79.31 - Secondary malignant neoplasm of brain Anemia Qualifiers: Anemia type: unspecified type Qualified Code(s): D64.9 - Anemia, unspecified Condition: Fair Disposition: ADMITTED INPATIENT Admitting Provider: Dar (Hospitalist) Unit Admitted: Telemetry Referrals: ARASH SAMUELS NP [Primary Care Provider] - Follow up as needed
[2019-09-06 22:18] LABS: INTERNATIONAL RATION (INR) 1.29; PROTHROMBIN TIME 16.2 SEC (11.4-15.4)
[2019-09-06 22:19] LABS: HEMATOCRIT 26.1 % (36.0-47.0); HEMOGLOBIN 8.7 g/dL (12.0-15.5); MEAN CORPUSCULAR HEMOGLOBIN 33.1 pg (27.0-33.4); MEAN CORPUSCULAR HGB CONC 33.4 g/dL (32.0-36.0); RED BLOOD COUNT 2.63 10^6/uL (3.72-5.28); RED CELL DISTRIBUTION WIDTH 20.8 % (11.5-14.0); WHITE BLOOD COUNT 6.1 10^3/uL (4.0-10.5)
[2019-09-06 22:21] LABS: VENOUS BLOOD BASE EXCESS 7.6 mmol/L; VENOUS BLOOD HCO3 31.5 mmol/L (20-32); VENOUS BLOOD PCO2 41.5 mmHg (35-63); VENOUS BLOOD PH 7.5 (7.30-7.42)
[2019-09-06 22:32] LABS: ALBUMIN 2.6 g/dL (3.5-5.0); ALKALINE PHOSPHATASE 127 U/L (38-126); ANION GAP 5 (5-19); ASPARTATE AMINO TRANSFERASE 108 U/L (14-36); BILIRUBIN,DIRECT 0.5 mg/dL (0.0-0.4); BILIRUBIN,TOTAL 0.9 mg/dL (0.2-1.3); BLOOD UREA NITROGEN 22 mg/dL (7-20); CARBON DIOXIDE 30 mmol/L (22-30); CHLORIDE 95 mmol/L (98-107); GLUCOSE 108 mg/dL (75-110); POTASSIUM 4.3 mmol/L (3.6-5.0); TOTAL PROTEIN 5.4 g/dL (6.3-8.2)
[2019-09-06 22:40] LABS: MEAN CORPUSCULAR VOLUME 99 fl (80-97); PLATELET COUNT 59 10^3/uL (150-450)
[2019-09-06 22:42] LABS: ABSOLUTE LYMPHOCYTES# (MANUAL) 0.2 10^3/uL (0.5-4.7); ABSOLUTE MONOCYTES # (MANUAL) 0.3 10^3/uL (0.1-1.4); BAND NEUTROPHILS % (MANUAL) 1 % (3-5); BASOPHILS % (MANUAL) 0 % (0-2); EOSINOPHILS % (MANUAL) 0 % (0-6); LYMPHOCYTES % (MANUAL) 4 % (13-45); MONOCYTES % (MANUAL) 5 % (3-13); SEGMENTED NEUTROPHILS % (MAN) 90 % (42-78); TOTAL CELLS COUNTED 100
[2019-09-06 22:46] LABS: ANISOCYTOSIS 2+; PLATELET COMMENT DECREASED
--- NOTE | 2019-09-06 22:58 | RADIOLOGY REPORT (SQ) ---
EXAM DESCRIPTION: CT HEAD WITHOUT IV CONTRAST COMPLETED DATE/TME: 09/06/2019 21:14 CLINICAL HISTORY: 78 years, Female, cancer, fatigue, confusion, brain mets COMPARISON: Prior study from 08/31/2019; prior MR from 07/24/2019 TECHNIQUE: Noncontrast CT of head was performed. Coronal and sagittal reformations were created. Images stored on PACS. All CT scanners at this facility use dose modulation, iterative reconstruction, and/or weight based dosing when appropriate to reduce radiation dose to as low as reasonably achievable (ALARA). [facility]: Dose Right [facility]: CareDose [facility]: Dose Right [facility]: Teradose 4D [facility]: [employer] LIMITATIONS: None. FINDINGS: Evaluation of the brain parenchyma reveals mild periventricular and patchy subcortical white matter low attenuation. More focal area of hypodensity is noted about the posterior left frontal lobe, corresponding to vasogenic edema as seen on the previous MR dated 07/24/2019. No acute intracranial hemorrhage, mass effect, or extra-axial fluid is seen. The ventricles and sulcal spaces are mildly enlarged. Globes and orbits show no acute abnormality. Mild rounded opacity is noted about the left maxillary antrum, indicating a mucous retention cyst or inflammatory polyp. Remaining paranasal sinuses and mastoid air cells are clear. Calcifications are noted about the parasellar carotid arteries. No depressed skull fractures. A lucent lesion is noted about the left frontal calvarium, previously found to represent a metastasis on the previous MR dated 07/24/2019. IMPRESSION: No acute intracranial abnormality. Specifically, pre-existing vasogenic edema about the left posterior frontal lobe appears similar to the previous CT dated 08/31/2019, previously found to represent sequela of a metastatic focus. Mild chronic microvascular ischemic change with generalized atrophy. Focal lucent lesion located within the left frontal calvarium was previously found to represent a metastatic focus on the previous MR dated 07/24/2019. TECHNICAL DOCUMENTATION: Quality ID # 436: Final reports with documentation of one or more dose reduction techniques (e.g., Automated exposure control, adjustment of the mA and/or kV according to patient size, use of iterative reconstruction technique) copyright 2011 [employer]- All Rights Reserved
--- NOTE | 2019-09-06 23:00 | RADIOLOGY REPORT (SQ) ---
EXAM DESCRIPTION: X-RAY CHEST- One View CLINICAL HISTORY: History of cancer presenting with fatigue and confusion COMPARISON: August 31, 2019 TECHNIQUE: Single view of the chest. FINDINGS: Interstitial prominence is stable when compared to prior study. There are no discrete air space infiltrates, pneumothoraces or pleural effusions. The pulmonary vascularity is normal. The cardiomediastinal silhouette is stable in appearance, with evidence of atherosclerotic vascular disease. The osseous structures are stable in appearance. Changes related to prior vertebral body augmentation at T9 and T12 are noted. IMPRESSION: There are no acute lung parenchymal findings. Note, if there is concern for metastatic process, CT may be considered as a more sensitive evaluation.
[2019-09-06 23:22] LABS: APPEARANCE,URINE CLEAR; BILIRUBIN,URINE NEGATIVE (NEGATIVE); COLOR,URINE YELLOW; GLUCOSE, URINE NEGATIVE (NEGATIVE); KETONES,URINE NEGATIVE (NEGATIVE); PROTEIN,URINE NEGATIVE (NEGATIVE); URINE SPECIFIC GRAVITY 1.006; UROBILINOGEN,URINE NEGATIVE mg/dL (<2.0)
[2019-09-06 23:43] LABS: BACTERIA,URINE TRACE /HPF; RBC,URINE NONE SEEN /HPF
[2019-09-06] MEDS ORDERED: NORMAL SALINE 1000 ML 1,000 ML IV ONE (23:56)
[2019-09-06] MEDS ORDERED: DEXAMETHASONE SOD PHOS INJ 10 MG/1 ML VIAL IV ONE (23:58)
[2019-09-07] MEDS ORDERED: DEXTROSE 40% GEL 15 GM TUBE PO PRN ×2 (00:17)
[2019-09-07] MEDS ORDERED: IPRATROPIUM/ALBUTEROL 0.5-2.5 MG/3 ML AMPUL NEB PRN (00:17)
[2019-09-07] MEDS ORDERED: MAG HYDROX/AL HYDROX/SIMETH SUSP 30 ML UDCUP PO PRN (00:17)
[2019-09-07] MEDS ORDERED: GLUCAGON,HUMAN RECOMB 1 MG INJ IM PRN (00:17)
[2019-09-07] MEDS ORDERED: ACETAMINOPHEN 325 MG TABLET PO PRN (00:17)
[2019-09-07] MEDS ORDERED: DEXTROSE 50%-WATER 25 GM/50 ML DISP.SYRIN IV PRN ×2 (00:17)
[2019-09-07 01:27] LABS: URINE AMPHETAMINES SCREEN NEGATIVE; URINE BARBITURATES SCREEN NEGATIVE; URINE BENZODIAZEPINES SCREEN NEGATIVE; URINE COCAINE SCREEN NEGATIVE; URINE MARIJUANA (THC) SCREEN NEGATIVE; URINE METHADONE SCREEN NEGATIVE; URINE PHENCYCLIDINE SCREEN NEGATIVE
[2019-09-07] MEDS: DEXAMETHASONE 4 MG TABLET PO SCH ×5 (01:47→23:34)
[2019-09-07] MEDS ORDERED: DIAZEPAM 2 MG TABLET PO PRN (05:37)
--- NOTE | 2019-09-07 05:43 | PDOC H&P ---
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 Patient was discharged from acute care August 30 home alone with Decadron for newly diagnosed brain met. She returns with debility unable to walk, fatigue and disorientation. Patient admits missing several Decadron doses. Her work-up is unremarkable from previous her oncologist Dr. Tahmina velasquez recommends hospitalization. She is referred to the hospitalist for admission after receiving IV Decadron. Past Medical History Cardiac Medical History: Reports: Hypertension Denies: Congestive Heart Failure, Coronary Artery Disease, Myocardial Infarction Pulmonary Medical History: Reports: Asthma - MILD, Pneumonia Denies: Bronchitis, Chronic Obstructive Pulmonary Disease (COPD) Neurological Medical History: Denies: Seizures Endocrine Medical History: Reports: Diabetes Mellitus Type 2 - insulin dependent Denies: Hypothyroidism Malignancy Medical History: Reports: Breast Cancer - bone and brain mets, Skin Cancer GI Medical History: Denies: Hepatitis, Hiatal Hernia Musculoskeltal Medical History: Reports: Arthritis - OSTEO, HANDS, KNEES Psychiatric Medical History: Denies: Depression Hematology: Reports: Anemia Denies: Sickle Cell Disease Past Surgical History Past Surgical History: Reports: Appendectomy, Hysterectomy, Orthopedic Surgery - kyphoplasty, Tonsillectomy - addnoids, Other - Breast lumpectomy Denies: Amputation, Mastectomy - LUMPECTOMY NO MASTECTOMY, Pacemaker Social History Information Source: Patient, Emergency Med Personnel, [facility] Records Lives with: Alone Smoking Status: Unknown if Ever Smoked Frequency of Alcohol Use: Rare Hx Recreational Drug Use: No Drugs: None Hx Prescription Drug Abuse: No - Advance Directive Resuscitation Status: Full Code Family History Family History: Malignancy Parental Family History Reviewed: Yes Children Family History Reviewed: Yes Sibling(s) Family History Reviewed.: Yes Medication/Allergy Home Medications: Exemestane 25 mg PO QAM 07/25/19 Gabapentin [Neurontin 300 mg Capsule] 300 mg PO BID 07/25/19 Lisinopril [Zestril] 5 mg PO QAM 07/25/19 Metformin HCl [Metformin HCl ER] 500 mg PO BID 07/25/19 Omeprazole 40 mg PO QAM 07/25/19 Ranitidine HCl [Zantac] 150 mg PO BID 07/25/19 Simvastatin 20 mg PO QPM 07/25/19 Insulin Aspart [Novolog Flexpen] 1 - 12 unit SUBCUT ACHS #1 pen 07/27/19 Insulin Detemir [Levemir] 80 units SQ BID 08/31/19 Dexamethasone [Decadron 4 mg Tablet] 4 mg PO Q6 #30 tablet 09/05/19 Allergies/Adverse Reactions: benzalkonium chloride [From Merthiolate (benzalkonium)] Allergy (Unknown, Verified 08/31/19 16:21) nickel Allergy (Unknown, Verified 08/31/19 16:21) latex Allergy (Verified 08/31/19 16:21) Penicillins Allergy (Verified 08/31/19 16:21) BEES Allergy (Mild, Uncoded 08/31/19 16:21) Review of Systems ROS unobtainable: Due to mental status Physical Exam Vital Signs: Temp Pulse Resp BP Pulse Ox 98.7 F 108 H 22 H 154/73 H 96 09/07/19 03:00 09/06/19 20:43 09/07/19 04:00 09/07/19 02:00 09/07/19 03:00 Intake & Output 09/05/19 09/06/19 09/07/19 11:59 11:59 11:59 Intake Total 1000 Balance 1000 General appearance: PRESENT: cooperative, disheveled, thin, well-developed, other - Chronically ill-appearing with temporal wasting and cachexia Head exam: PRESENT: atraumatic, normocephalic Eye exam: PRESENT: conjunctiva pink, EOMI, PERRLA. ABSENT: scleral icterus Ear exam: PRESENT: normal external ear exam Mouth exam: PRESENT: dry mucosa, tongue midline. ABSENT: laceration Neck exam: ABSENT: carotid bruit, JVD, lymphadenopathy, thyromegaly Respiratory exam: PRESENT: decreased breath sounds, symmetrical, tachypnea Cardiovascular exam: PRESENT: RRR, tachycardia. ABSENT: diastolic murmur, rubs, systolic murmur Vascular exam: PRESENT: normal capillary refill GI/Abdominal exam: PRESENT: normal bowel sounds, soft. ABSENT: distended, guarding, mass, organolmegaly, rebound, tenderness Rectal exam: PRESENT: deferred Extremities exam: PRESENT: full ROM. ABSENT: calf tenderness, clubbing, pedal edema Neurological exam: PRESENT: alert, altered, awake, oriented to person, oriented to place, oriented to time, oriented to situation, CN II-XII grossly intact. ABSENT: motor sensory deficit Psychiatric exam: PRESENT: appropriate affect, normal mood. ABSENT: homicidal ideation, suicidal ideation Skin exam: PRESENT: dry, intact, warm. ABSENT: cyanosis, rash Results Laboratory Results: 09/06/19 21:50 09/06/19 21:50 09/06/19 09/06/19 09/06/19 21:50 21:50 21:50 WBC 6.1 RBC 2.63 L Hgb 8.7 L Hct 26.1 L MCV 99 H D MCH 33.1 MCHC 33.4 RDW 20.8 H Plt Count 59 L Seg Neutrophils % Not Reportable VBG pH VBG pCO2 VBG HCO3 VBG Base Excess Sodium 130.4 L Potassium 4.3 Chloride 95 L Carbon Dioxide 30 Anion Gap 5 BUN 22 H Creatinine 0.59 Est GFR ( Amer) > 60 Glucose 108 Lactic Acid 1.7 Calcium 8.0 L Magnesium Total Bilirubin 0.9 AST 108 H Alkaline Phosphatase 127 H Total Protein 5.4 L Albumin 2.6 L Urine Color Urine Appearance Urine pH Ur Specific [place] Urine Protein Urine Glucose (UA) Urine Ketones Urine Blood 09/06/19 09/06/19 09/06/19 21:50 21:50 22:58 WBC RBC Hgb Hct MCV MCH MCHC RDW Plt Count Seg Neutrophils % VBG pH 7.50 H VBG pCO2 41.5 VBG HCO3 31.5 VBG Base Excess 7.6 Sodium Potassium Chloride Carbon Dioxide Anion Gap BUN Creatinine Est GFR ( Amer) Glucose Lactic Acid Calcium Magnesium 2.3 Total Bilirubin AST Alkaline Phosphatase Total Protein Albumin Urine Color YELLOW Urine Appearance CLEAR Urine pH 6.0 Ur Specific [place] 1.006 Urine Protein NEGATIVE Urine Glucose (UA) NEGATIVE Urine Ketones NEGATIVE Urine Blood NEGATIVE 09/06/19 21:50 Troponin I 0.016 Impressions: Head CT 09/06/19 21:14 IMPRESSION: No acute intracranial abnormality. Specifically, pre-existing vasogenic edema about the left posterior frontal lobe appears similar to the previous CT dated 08/31/2019, previously found to represent sequela of a metastatic focus. Mild chronic microvascular ischemic change with generalized atrophy. Focal lucent lesion located within the left frontal calvarium was previously found to represent a metastatic focus on the previous MR dated 07/24/2019. TECHNICAL DOCUMENTATION: Quality ID # [id number]: Final reports with documentation of one or more dose reduction techniques (e.g., Automated exposure control, adjustment of the mA and/or kV according to patient size, use of iterative reconstruction technique) copyright 2011 [employer]- All Rights Reserved Chest X-Ray 09/06/19 21:15 IMPRESSION: There are no acute lung parenchymal findings. Note, if there is concern for metastatic process, CT may be considered as a more sensitive evaluation. Assessment and Plan - Diagnosis (1) Breast cancer metastasized to brain Qualifiers: Laterality: unspecified laterality Qualified Code(s): C50.919 - Malignant neoplasm of unspecified site of unspecified female breast; C79.31 - Secondary malignant neoplasm of brain Is this a current diagnosis for this admission?: Yes Plan: Supportive care, oncology and discharge planning consult for hospice (2) Anemia Qualifiers: Anemia type: unspecified type Qualified Code(s): D64.9 - Anemia, unspecified Is this a current diagnosis for this admission?: Yes Plan: Secondary to chronic disease no further work-up (3) Confusion Is this a current diagnosis for this admission?: Yes Plan: Likely secondary to intermittent Decadron use complicated by brain metastasis. (4) Anxiety Is this a current diagnosis for this admission?: Yes Plan: Trial Valium 2 mg p.o. every 6 hours as needed
[2019-09-07] MEDS: HEPARIN SOD (PORCINE) 5,000 UNIT/ML 1 ML VIAL SUBCUT SCH ×3 (06:32→21:03)
[2019-09-07] MEDS ORDERED: NORMAL SALINE 1000 ML 1,000 ML IV ONE (07:53)
--- NOTE | 2019-09-07 08:07 | PDOC CONSULTATION ---
Consultation Consult Date: 09/07/19 Attending physician:: LOLIS BRADSHAW Provider Consulted: THANH QUIROS Consult reason:: Patient with severe weakness, poor p.o. intake and confusion History of Present Illness Admission Date/PCP: 09/07/19 00:47 ARASHPATRICIO SAMUELS NP Patient complains of: Weakness, confusion History of Present Illness: KIM CROSS is a 78 year old female well-known to our oncology clinic with stage IV breast cancer, bone metastasis and recent brain metastasis, status post completion of whole brain radiation, had severe weakness after radiation was completed and came into the hospital and was admitted for about 5 days for hydration, blood sugar control, ultimately towards the end of the stay she did a lot better and was eating and drinking fluids and was ready to go home. Unfortunately about 24 hours after discharge, patient became very lethargic and stopped eating and drinking, she did have family that was checking on her but nobody with her 18/01 to push eating and drinking and taking her medications. So it looks like for about 24 hours she may not of had oral steroids or oral hydration, yesterday evening she was very lethargic and confused and was brought in by her family. Upon admission, chest x-ray was clear, CT of the head showed stable changes, patient was anemic and appeared dehydrated so she has been hydrated. She looks a little bit better this morning. We gave her IV steroids last night. Past Medical History Cardiac Medical History: Reports: Hypertension Denies: Congestive Heart Failure, Coronary Artery Disease, Myocardial Infarction Pulmonary Medical History: Reports: Asthma - MILD, Pneumonia Denies: Bronchitis, Chronic Obstructive Pulmonary Disease (COPD) Neurological Medical History: Denies: Seizures Endocrine Medical History: Reports: Diabetes Mellitus Type 2 - insulin dependent Denies: Hypothyroidism Malignancy Medical History: Reports: Breast Cancer - bone and brain mets, Skin Cancer GI Medical History: Denies: Hepatitis, Hiatal Hernia Musculoskeltal Medical History: Reports: Arthritis - OSTEO, HANDS, KNEES Psychiatric Medical History: Denies: Depression Hematology: Reports: Anemia Denies: Sickle Cell Disease Past Surgical History Past Surgical History: Reports: Appendectomy, Hysterectomy, Orthopedic Surgery - kyphoplasty, Tonsillectomy - addnoids, Other - Breast lumpectomy Denies: Amputation, Mastectomy - LUMPECTOMY NO MASTECTOMY, Pacemaker Social History Lives with: Alone Smoking Status: Unknown if Ever Smoked Frequency of Alcohol Use: Rare Hx Recreational Drug Use: No Drugs: None Hx Prescription Drug Abuse: No - Advance Directive Resuscitation Status: Full Code Family History Family History: Malignancy Parental Family History Reviewed: Yes Children Family History Reviewed: Yes Sibling(s) Family History Reviewed.: Yes Medication/Allergy Home Medications: Exemestane 25 mg PO QAM 07/25/19 Gabapentin [Neurontin 300 mg Capsule] 300 mg PO BID 07/25/19 Lisinopril [Zestril] 5 mg PO QAM 07/25/19 Metformin HCl [Metformin HCl ER] 500 mg PO BID 07/25/19 Omeprazole 40 mg PO QAM 07/25/19 Ranitidine HCl [Zantac] 150 mg PO BID 07/25/19 Simvastatin 20 mg PO QPM 07/25/19 Insulin Aspart [Novolog Flexpen] 1 - 12 unit SUBCUT ACHS #1 pen 07/27/19 Insulin Detemir [Levemir] 80 units SQ BID 08/31/19 Dexamethasone [Decadron 4 mg Tablet] 4 mg PO Q6 #30 tablet 09/05/19 Allergies/Adverse Reactions: benzalkonium chloride [From Merthiolate (benzalkonium)] Allergy (Unknown, Fuentes ified 08/31/19 16:21) nickel Allergy (Unknown, Verified 08/31/19 16:21) latex Allergy (Verified 08/31/19 16:21) Penicillins Allergy (Verified 08/31/19 16:21) BEES Allergy (Mild, Uncoded 08/31/19 16:21) Review of Systems Constitutional: ABSENT: chills, fever(s), headache(s), weight gain, weight loss Eyes: ABSENT: visual disturbances Ears: ABSENT: hearing changes Cardiovascular: ABSENT: chest pain, dyspnea on exertion, edema, orthropnea, palpitations Respiratory: ABSENT: cough, hemoptysis Gastrointestinal: ABSENT: abdominal pain, constipation, diarrhea, hematemesis, hematochezia, nausea, vomiting Genitourinary: ABSENT: dysuria, hematuria Musculoskeletal: ABSENT: joint swelling Integumentary: ABSENT: rash, wounds Neurological: ABSENT: abnormal gait, abnormal speech, confusion, dizziness, focal weakness, syncope Psychiatric: ABSENT: anxiety, depression, homidical ideation, suicidal ideation Endocrine: ABSENT: cold intolerance, heat intolerance, polydipsia, polyuria Hematologic/Lymphatic: ABSENT: easy bleeding, easy bruising Physical Exam Vital Signs: Temp Pulse Resp BP Pulse Ox 98.7 F 108 H 13 143/70 H 97 09/07/19 03:00 09/06/19 20:43 09/07/19 07:00 09/07/19 06:01 09/07/19 06:01 Intake & Output 09/06/19 09/07/19 09/08/19 06:59 06:59 06:59 Intake Total 1000 Balance 1000 Weight 60.328 kg General appearance: PRESENT: no acute distress, well-developed, well-nourished Head exam: PRESENT: atraumatic, normocephalic Eye exam: PRESENT: conjunctiva pink, EOMI, PERRLA. ABSENT: scleral icterus Ear exam: PRESENT: normal external ear exam Mouth exam: PRESENT: moist, tongue midline Neck exam: ABSENT: carotid bruit, JVD, lymphadenopathy, thyromegaly Respiratory exam: PRESENT: clear to auscultation debbie. ABSENT: rales, rhonchi, wheezes Cardiovascular exam: PRESENT: RRR. ABSENT: diastolic murmur, rubs, systolic murmur Pulses: PRESENT: normal dorsalis pedis pul Vascular exam: PRESENT: normal capillary refill GI/Abdominal exam: PRESENT: normal bowel sounds, soft. ABSENT: distended, guarding, mass, organolmegaly, rebound, tenderness Rectal exam: PRESENT: deferred Extremities exam: PRESENT: full ROM. ABSENT: calf tenderness, clubbing, pedal edema Neurological exam: PRESENT: alert, awake, oriented to person, oriented to place, oriented to time, oriented to situation, CN II-XII grossly intact. ABSENT: motor sensory deficit Psychiatric exam: PRESENT: appropriate affect, normal mood. ABSENT: homicidal ideation, suicidal ideation Skin exam: PRESENT: dry, intact, warm. ABSENT: cyanosis, rash Results Laboratory Results: 09/06/19 21:50 09/06/19 21:50 09/06/19 09/06/19 09/06/19 21:50 21:50 21:50 WBC 6.1 RBC 2.63 L Hgb 8.7 L Hct 26.1 L MCV 99 H D MCH 33.1 MCHC 33.4 RDW 20.8 H Plt Count 59 L Seg Neutrophils % Not Reportable VBG pH VBG pCO2 VBG HCO3 VBG Base Excess Sodium 130.4 L Potassium 4.3 Chloride 95 L Carbon Dioxide 30 Anion Gap 5 BUN 22 H Creatinine 0.59 Est GFR ( Amer) > 60 Glucose 108 Lactic Acid 1.7 Calcium 8.0 L Magnesium Total Bilirubin 0.9 AST 108 H Alkaline Phosphatase 127 H Total Protein 5.4 L Albumin 2.6 L Urine Color Urine Appearance Urine pH Ur Specific [place] Urine Protein Urine Glucose (UA) Urine Ketones Urine Blood 09/06/19 09/06/19 09/06/19 21:50 21:50 22:58 WBC RBC Hgb Hct MCV MCH MCHC RDW Plt Count Seg Neutrophils % VBG pH 7.50 H VBG pCO2 41.5 VBG HCO3 31.5 VBG Base Excess 7.6 Sodium Potassium Chloride Carbon Dioxide Anion Gap BUN Creatinine Est GFR ( Amer) Glucose Lactic Acid Calcium Magnesium 2.3 Total Bilirubin AST Alkaline Phosphatase Total Protein Albumin Urine Color YELLOW Urine Appearance CLEAR Urine pH 6.0 Ur Specific [place] 1.006 Urine Protein NEGATIVE Urine Glucose (UA) NEGATIVE Urine Ketones NEGATIVE Urine Blood NEGATIVE 09/06/19 21:50 Troponin I 0.016 Impressions: Head CT 09/06/19 21:14 IMPRESSION: No acute intracranial abnormality. Specifically, pre-existing vasogenic edema about the left posterior frontal lobe appears similar to the previous CT dated 08/31/2019, previously found to represent sequela of a metastatic focus. Mild chronic microvascular ischemic change with generalized atrophy. Focal lucent lesion located within the left frontal calvarium was previously found to represent a metastatic focus on the previous MR dated 07/24/2019. TECHNICAL DOCUMENTATION: Quality ID # [id number]: Final reports with documentation of one or more dose reduction techniques (e.g., Automated exposure control, adjustment of the mA and/or kV according to patient size, use of iterative reconstruction technique) copyright 2011 [employer]- All Rights Reserved Chest X-Ray 09/06/19 21:15 IMPRESSION: There are no acute lung parenchymal findings. Note, if there is concern for metastatic process, CT may be considered as a more sensitive evaluation. Status: Image reviewed by me Assessment & Plan - Diagnosis (1) Breast cancer metastasized to brain Qualifiers: Laterality: right Qualified Code(s): C50.919 - Malignant neoplasm of unspecified site of unspecified female breast; C79.31 - Secondary malignant neoplasm of brain Is this a current diagnosis for this admission?: Yes Plan: Stage IV breast cancer, we will need aggressive IV hydration for the next 24 hours to see how she does and she should continue on oral steroids. Hopefully over the next 24 hours she will get back to her previous baseline prior to discharge last visit. I do not think she is hospice appropriate yet, she is still within the side effect profile of recent brain radiation, this should improve within the next 2 to 4 weeks. In addition, in terms of her systemic disease her disease in the brain seems well controlled after radiation with several scans done post radiation, and her disease otherwise systemically is primarily bone related and that seems to be well controlled as well. However, discussed with nurse who will be taking care of her on the fourth floor that her family will need to be contacted and have a long discussion about getting someone to stay with her full-time when she is ready for discharge. (2) Dehydration Is this a current diagnosis for this admission?: Yes Plan: Continue normal saline (3) Secondary malignant melanoma of brain Is this a current diagnosis for this admission?: Yes Plan: Continue with steroids (4) Anemia Qualifiers: Anemia type: bone marrow failure Bone marrow failure anemia type: pancytopenia, antineoplastic chemotherapy-induced Qualified Code(s): D61.810 - Antineoplastic chemotherapy induced pancytopenia; T45.1X5A - Adverse effect of antineoplastic and immunosuppressive drugs, initial encounter Is this a current diagnosis for this admission?: Yes Plan: Probable anemia is related to recent events and oral medication related to the breast cancer, hemoglobin is in the 8 range, if it falls in the low 8 or below 8 range, will recommend 1 unit of packed red blood cell. Would hydrate today and hold on transfusion for today. (5) Thrombocytopenia Is this a current diagnosis for this admission?: Yes Plan: Also probably related to oral therapy. We will need to watch. Would transfuse platelets if it gets under 20. - Time Time Spent: Greater than 70 Minutes - Inpatient Certification Based on my medical assessment, after consideration of the patient's comorbidities, presenting symptoms, or acuity I expect that the services needed warrant INPATIENT care.: Yes I certify that my determination is in accordance with my understanding of Medicare's requirements for reasonable and necessary INPATIENT services [42 CFR 412.3e].: Yes Medical Necessity: Risk of Complication if Not Cared For in Hospital
[2019-09-07] MEDS: DOCUSATE SODIUM 100 MG CAPSULE PO SCH ×2 (09:37→17:36)
[2019-09-07] MEDS: INSULIN LISPRO 100 UNIT/ML 3 ML VIAL SUBCUT SCH ×3 (09:37→16:26)
--- NOTE | 2019-09-07 09:59 | EKG REPORT ---
SEVERITY:- OTHERWISE NORMAL ECG - SINUS TACHYCARDIA : Confirmed by: Fany Guillaume 07-Sep-2019 09:58:46
[2019-09-07] MEDS: NORMAL SALINE 1000 ML 1,000 ML IV PRN (23:37)
[2019-09-08 04:29] LABS: HEMATOCRIT 22.4 % (36.0-47.0); MEAN CORPUSCULAR HEMOGLOBIN 33.6 pg (27.0-33.4); MEAN CORPUSCULAR HGB CONC 34.8 g/dL (32.0-36.0); MEAN CORPUSCULAR VOLUME 97 fl (80-97); RED BLOOD COUNT 2.32 10^6/uL (3.72-5.28); RED CELL DISTRIBUTION WIDTH 20.2 % (11.5-14.0); WHITE BLOOD COUNT 5.1 10^3/uL (4.0-10.5)
[2019-09-08 04:45] LABS: ANION GAP 7 (5-19); BLOOD UREA NITROGEN 23 mg/dL (7-20); CALCIUM 7.9 mg/dL (8.4-10.2); CARBON DIOXIDE 28 mmol/L (22-30); CHLORIDE 101 mmol/L (98-107); GLUCOSE 216 mg/dL (75-110); POTASSIUM 3.9 mmol/L (3.6-5.0)
[2019-09-08 04:54] LABS: PLATELET COUNT 47 10^3/uL (150-450)
[2019-09-08 04:59] LABS: HEMOGLOBIN 7.8 g/dL (12.0-15.5)
[2019-09-08] MEDS: HEPARIN SOD (PORCINE) 5,000 UNIT/ML 1 ML VIAL SUBCUT SCH (05:10)
[2019-09-08] MEDS: DEXAMETHASONE 4 MG TABLET PO SCH ×4 (05:36→23:45)
[2019-09-08] MEDS ORDERED: DIPHENHYDRAMINE HCL 25 MG CAPSULE PO PRN (07:37)
[2019-09-08] MEDS ORDERED: ACETAMINOPHEN 325 MG TABLET PO PRN (07:38)
--- NOTE | 2019-09-08 07:59 | PDOC PROGRESS REPORT ---
Subjective Progress Note for:: 09/08/19 Subjective:: Had long discussion with patient, discussed difficult home situation. Noted that hospice will give more services and may make it possible that she could be okay at home, she does not want to go to a facility. I believe she is hospice appropriate. Reason For Visit: BREAST CA W METS AMS Physical Exam Vital Signs: Temp Pulse Resp BP Pulse Ox 97.3 F 97 20 154/78 H 95 09/08/19 07:38 09/08/19 07:38 09/08/19 07:38 09/08/19 07:38 09/08/19 07:38 Intake & Output 09/07/19 09/08/19 09/09/19 06:59 06:59 06:59 Intake Total 1000 1080 1000 Balance 1000 1080 1000 Weight 65.9 kg General appearance: PRESENT: no acute distress, well-developed, well-nourished Head exam: PRESENT: atraumatic, normocephalic Eye exam: PRESENT: conjunctiva pink, EOMI, PERRLA. ABSENT: scleral icterus Ear exam: PRESENT: normal external ear exam Mouth exam: PRESENT: moist, tongue midline Neck exam: ABSENT: carotid bruit, JVD, lymphadenopathy, thyromegaly Respiratory exam: PRESENT: clear to auscultation debbie. ABSENT: rales, rhonchi, wheezes Cardiovascular exam: PRESENT: RRR. ABSENT: diastolic murmur, rubs, systolic murmur Pulses: PRESENT: normal dorsalis pedis pul Vascular exam: PRESENT: normal capillary refill GI/Abdominal exam: PRESENT: normal bowel sounds, soft. ABSENT: distended, guarding, mass, organolmegaly, rebound, tenderness Rectal exam: PRESENT: deferred Extremities exam: PRESENT: full ROM. ABSENT: calf tenderness, clubbing, pedal edema Neurological exam: PRESENT: alert, awake, oriented to person, oriented to place, oriented to time, oriented to situation, CN II-XII grossly intact. ABSENT: motor sensory deficit Psychiatric exam: PRESENT: appropriate affect, normal mood. ABSENT: homicidal ideation, suicidal ideation Skin exam: PRESENT: dry, intact, warm. ABSENT: cyanosis, rash Results Laboratory Results: 09/08/19 04:02 09/08/19 04:02 09/08/19 09/08/19 04:02 04:02 WBC 5.1 RBC 2.32 L Hgb 7.8 L Hct 22.4 L MCV 97 MCH 33.6 H MCHC 34.8 RDW 20.2 H Plt Count 47 L Sodium 135.9 L Potassium 3.9 Chloride 101 Carbon Dioxide 28 Anion Gap 7 BUN 23 H Creatinine 0.62 Est GFR ( Amer) > 60 Glucose 216 H Calcium 7.9 L 09/06/19 21:50 Troponin I 0.016 Impressions: Head CT 09/06/19 21:14 IMPRESSION: No acute intracranial abnormality. Specifically, pre-existing vasogenic edema about the left posterior frontal lobe appears similar to the previous CT dated 08/31/2019, previously found to represent sequela of a metastatic focus. Mild chronic microvascular ischemic change with generalized atrophy. Focal lucent lesion located within the left frontal calvarium was previously found to represent a metastatic focus on the previous MR dated 07/24/2019. TECHNICAL DOCUMENTATION: Quality ID # [id number]: Final reports with documentation of one or more dose reduction techniques (e.g., Automated exposure control, adjustment of the mA and/or kV according to patient size, use of iterative reconstruction technique) copyright 2011 [employer]- All Rights Reserved Chest X-Ray 09/06/19 21:15 IMPRESSION: There are no acute lung parenchymal findings. Note, if there is concern for metastatic process, CT may be considered as a more sensitive evaluation. Assessment & Plan - Diagnosis (1) Breast cancer metastasized to brain Qualifiers: Laterality: right Qualified Code(s): C50.919 - Malignant neoplasm of unspecified site of unspecified female breast; C79.31 - Secondary malignant neoplasm of brain Is this a current diagnosis for this admission?: Yes Plan: Mental status improved, energy level improved. Secondary to taking appropriate steroids. (2) Dehydration Is this a current diagnosis for this admission?: Yes Plan: Improved, overall doing better with p.o. intake (3) Secondary malignant melanoma of brain Is this a current diagnosis for this admission?: Yes Plan: Continue with steroids as above (4) Anemia Qualifiers: Anemia type: bone marrow failure Bone marrow failure anemia type: pancytopenia, antineoplastic chemotherapy-induced Qualified Code(s): D61.810 - Antineoplastic chemotherapy induced pancytopenia; T45.1X5A - Adverse effect of antineoplastic and immunosuppressive drugs, initial encounter Is this a current diagnosis for this admission?: Yes Plan: Give 1 unit of packed red blood cell today (5) Thrombocytopenia Is this a current diagnosis for this admission?: Yes Plan: Holding heparin - Time Time Spent with patient: 35 or more minutes
[2019-09-08] MEDS: INSULIN LISPRO 100 UNIT/ML 3 ML VIAL SUBCUT SCH ×3 (08:05→17:19)
[2019-09-08] MEDS: DOCUSATE SODIUM 100 MG CAPSULE PO SCH ×2 (10:56→17:18)
--- NOTE | 2019-09-08 17:35 | PDOC PROGRESS REPORT ---
Subjective Progress Note for:: 09/08/19 Subjective:: No adverse events overnight. No new complaints. She said when she went home she just for whatever reason was not taking her Decadron. She is feeling better now but she still has a lot of decreased energy. She spoke with Dr. Ocampo this morning and has decided to go with hospice. Reason For Visit: BREAST CA W METS AMS Physical Exam Vital Signs: Temp Pulse Resp BP Pulse Ox 98.2 F 79 17 157/77 H 95 09/08/19 15:51 09/08/19 15:51 09/08/19 15:51 09/08/19 15:51 09/08/19 15:51 Intake & Output 09/07/19 09/08/19 09/09/19 06:59 06:59 06:59 Intake Total 1000 1080 1780 Balance 1000 1080 1780 Weight 65.9 kg General appearance: PRESENT: cooperative, disheveled, thin, well-developed, other - Chronically ill-appearing with temporal wasting and cachexia Respiratory exam: PRESENT: decreased breath sounds, symmetrical, tachypnea Cardiovascular exam: PRESENT: RRR, tachycardia. ABSENT: diastolic murmur, rubs, systolic murmur Vascular exam: PRESENT: normal capillary refill GI/Abdominal exam: PRESENT: normal bowel sounds, soft. ABSENT: distended, guarding, mass, organolmegaly, rebound, tenderness Rectal exam: PRESENT: deferred Extremities exam: PRESENT: full ROM. ABSENT: calf tenderness, clubbing, pedal edema Neurological exam: PRESENT: alert, altered, awake, oriented to person, oriented to place, oriented to time, oriented to situation Psychiatric exam: PRESENT: appropriate affect, normal mood. ABSENT: homicidal ideation, suicidal ideation Skin exam: PRESENT: dry, intact, warm Results Laboratory Results: 09/08/19 04:02 09/08/19 04:02 09/08/19 09/08/19 09/08/19 04:02 04:02 08:17 WBC 5.1 RBC 2.32 L Hgb 7.8 L Hct 22.4 L MCV 97 MCH 33.6 H MCHC 34.8 RDW 20.2 H Plt Count 47 L Sodium 135.9 L Potassium 3.9 Chloride 101 Carbon Dioxide 28 Anion Gap 7 BUN 23 H Creatinine 0.62 Est GFR ( Amer) > 60 Glucose 216 H Calcium 7.9 L Blood Type A POSITIVE Antibody Screen NEGATIVE 09/06/19 21:50 Troponin I 0.016 Impressions: Head CT 09/06/19 21:14 IMPRESSION: No acute intracranial abnormality. Specifically, pre-existing vasogenic edema about the left posterior frontal lobe appears similar to the previous CT dated 08/31/2019, previously found to represent sequela of a metastatic focus. Mild chronic microvascular ischemic change with generalized atrophy. Focal lucent lesion located within the left frontal calvarium was previously found to represent a metastatic focus on the previous MR dated 07/24/2019. TECHNICAL DOCUMENTATION: Quality ID # [id number]: Final reports with documentation of one or more dose reduction techniques (e.g., Automated exposure control, adjustment of the mA and/or kV according to patient size, use of iterative reconstruction technique) copyright 2011 [employer]- All Rights Reserved Chest X-Ray 09/06/19 21:15 IMPRESSION: There are no acute lung parenchymal findings. Note, if there is concern for metastatic process, CT may be considered as a more sensitive evaluation. 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 She has decided to go with hospice. Case management has been consulted. (2) Dehydration Is this a current diagnosis for this admission?: Yes Plan: Improved with IV fluids. - Time Time Spent with patient: 15-24 minutes
[2019-09-08] MEDS: NORMAL SALINE 1000 ML 1,000 ML IV PRN (20:32)
[2019-09-09] MEDS: DEXAMETHASONE 4 MG TABLET PO SCH ×4 (05:27→23:35)
[2019-09-09] MEDS: INSULIN LISPRO 100 UNIT/ML 3 ML VIAL SUBCUT SCH ×5 (07:37→17:04)
[2019-09-09] MEDS: DOCUSATE SODIUM 100 MG CAPSULE PO SCH ×2 (09:33→17:04)
--- NOTE | 2019-09-09 11:57 | PDOC PROGRESS REPORT ---
Subjective Progress Note for:: 09/09/19 Subjective:: Today had a long discussion with patient, family as well as discharge planning, working on home hospice placement Reason For Visit: BREAST CA W METS AMS Physical Exam Vital Signs: Temp Pulse Resp BP Pulse Ox 98.2 F 78 18 172/71 H 100 09/09/19 08:00 09/09/19 08:00 09/09/19 08:00 09/09/19 08:00 09/09/19 08:00 Intake & Output 09/08/19 09/09/19 09/10/19 06:59 06:59 06:59 Intake Total 1080 2928 Balance 1080 2928 Weight 65.9 kg 66 kg General appearance: PRESENT: no acute distress, well-developed, well-nourished Head exam: PRESENT: atraumatic, normocephalic Eye exam: PRESENT: conjunctiva pink, EOMI, PERRLA. ABSENT: scleral icterus Ear exam: PRESENT: normal external ear exam Mouth exam: PRESENT: moist, tongue midline Neck exam: ABSENT: carotid bruit, JVD, lymphadenopathy, thyromegaly Respiratory exam: PRESENT: clear to auscultation debbie. ABSENT: rales, rhonchi, wheezes Cardiovascular exam: PRESENT: RRR. ABSENT: diastolic murmur, rubs, systolic murmur Pulses: PRESENT: normal dorsalis pedis pul Vascular exam: PRESENT: normal capillary refill GI/Abdominal exam: PRESENT: normal bowel sounds, soft. ABSENT: distended, guarding, mass, organolmegaly, rebound, tenderness Rectal exam: PRESENT: deferred Extremities exam: PRESENT: full ROM. ABSENT: calf tenderness, clubbing, pedal edema Neurological exam: PRESENT: alert, awake, oriented to person, oriented to place, oriented to time, oriented to situation, CN II-XII grossly intact. ABSENT: motor sensory deficit Psychiatric exam: PRESENT: appropriate affect, normal mood. ABSENT: homicidal ideation, suicidal ideation Skin exam: PRESENT: dry, intact, warm. ABSENT: cyanosis, rash Results Laboratory Results: 09/08/19 04:02 09/08/19 04:02 09/06/19 21:50 Troponin I 0.016 Impressions: Head CT 09/06/19 21:14 IMPRESSION: No acute intracranial abnormality. Specifically, pre-existing vasogenic edema about the left posterior frontal lobe appears similar to the previous CT dated 08/31/2019, previously found to represent sequela of a metastatic focus. Mild chronic microvascular ischemic change with generalized atrophy. Focal lucent lesion located within the left frontal calvarium was previously found to represent a metastatic focus on the previous MR dated 07/24/2019. TECHNICAL DOCUMENTATION: Quality ID # [id number]: Final reports with documentation of one or more dose reduction techniques (e.g., Automated exposure control, adjustment of the mA and/or kV according to patient size, use of iterative reconstruction technique) copyright 2011 [employer]- All Rights Reserved Chest X-Ray 09/06/19 21:15 IMPRESSION: There are no acute lung parenchymal findings. Note, if there is concern for metastatic process, CT may be considered as a more sensitive evaluation. Assessment & Plan - Diagnosis (1) Breast cancer metastasized to brain Qualifiers: Laterality: right Qualified Code(s): C50.919 - Malignant neoplasm of unspecified site of unspecified female breast; C79.31 - Secondary malignant neoplasm of brain Is this a current diagnosis for this admission?: Yes Plan: Patient is hospice appropriate with less than 6-month survival expected, working on getting that placed (2) Secondary malignant melanoma of brain Is this a current diagnosis for this admission?: Yes Plan: Continue with steroids, patient will need to continue on this as an outpatient (3) Anemia Qualifiers: Anemia type: bone marrow failure Bone marrow failure anemia type: pancytopenia, antineoplastic chemotherapy-induced Qualified Code(s): D61.810 - Antineoplastic chemotherapy induced pancytopenia; T45.1X5A - Adverse effect of antineoplastic and immunosuppressive drugs, initial encounter Is this a current diagnosis for this admission?: Yes Plan: 1 unit packed red blood cell given (4) Thrombocytopenia Is this a current diagnosis for this admission?: Yes Plan: Patient needs follow-up CBC will order (5) Dehydration Is this a current diagnosis for this admission?: Yes Plan: Fluids given - Time Time Spent with patient: 35 or more minutes
[2019-09-09] MEDS: NORMAL SALINE 1000 ML 1,000 ML IV PRN (17:04)
--- NOTE | 2019-09-09 17:44 | PDOC PROGRESS REPORT ---
Subjective Progress Note for:: 09/09/19 Reason For Visit: BREAST CA W METS AMS Physical Exam Vital Signs: Temp Pulse Resp BP Pulse Ox 97.8 F 85 17 172/67 H 100 09/09/19 16:00 09/09/19 16:00 09/09/19 16:00 09/09/19 16:00 09/09/19 16:00 Intake & Output 09/08/19 09/09/19 09/10/19 06:59 06:59 06:59 Intake Total 1080 2928 1360 Balance 1080 2928 1360 Weight 65.9 kg 66 kg General appearance: PRESENT: cooperative, disheveled, thin, well-developed, other - Chronically ill-appearing with temporal wasting and cachexia Respiratory exam: PRESENT: decreased breath sounds, symmetrical, tachypnea Cardiovascular exam: PRESENT: RRR, tachycardia. ABSENT: diastolic murmur, rubs, systolic murmur Vascular exam: PRESENT: normal capillary refill GI/Abdominal exam: PRESENT: normal bowel sounds, soft. ABSENT: distended, guarding, mass, organolmegaly, rebound, tenderness Rectal exam: PRESENT: deferred Extremities exam: PRESENT: full ROM. ABSENT: calf tenderness, clubbing, pedal edema Neurological exam: PRESENT: alert, altered, awake, oriented to person, oriented to place, oriented to time, oriented to situation Psychiatric exam: PRESENT: appropriate affect, normal mood Skin exam: PRESENT: dry, intact, warm Results Laboratory Results: 09/08/19 04:02 09/08/19 04:02 09/06/19 21:50 Troponin I 0.016 Impressions: Head CT 09/06/19 21:14 IMPRESSION: No acute intracranial abnormality. Specifically, pre-existing vasogenic edema about the left posterior frontal lobe appears similar to the previous CT dated 08/31/2019, previously found to represent sequela of a metastatic focus. Mild chronic microvascular ischemic change with generalized atrophy. Focal lucent lesion located within the left frontal calvarium was previously found to represent a metastatic focus on the previous MR dated 07/24/2019. TECHNICAL DOCUMENTATION: Quality ID # [id number]: Final reports with documentation of one or more dose reduction techniques (e.g., Automated exposure control, adjustment of the mA and/or kV according to patient size, use of iterative reconstruction technique) copyright 2011 [employer]- All Rights Reserved Chest X-Ray 09/06/19 21:15 IMPRESSION: There are no acute lung parenchymal findings. Note, if there is concern for metastatic process, CT may be considered as a more sensitive evaluation. Assessment and Plan - Diagnosis (1) Breast cancer metastasized to brain Qualifiers: Laterality: right Qualified Code(s): C50.911 - Malignant neoplasm of unspecified site of right female breast; C79.31 - Secondary malignant neoplasm of brain Is this a current diagnosis for this admission?: Yes Plan: She is on Decadron. She has decided to go with hospice. Case management has been consulted. Her daughter is on her way in from out of town and we are waiting for her to get home so the patient will have someone with her at home. (2) Dehydration Is this a current diagnosis for this admission?: Yes Plan: Improved with IV fluids. - Time Time Spent with patient: 15-24 minutes
[2019-09-09] MEDS ORDERED: (PENDING PHARMACY ID) (Ranitidine Hcl [Zantac] 150 MG) PO SCH (18:00)
[2019-09-09] MEDS: FAMOTIDINE 20 MG TABLET PO SCH (18:09)
[2019-09-09] MEDS: GABAPENTIN 300 MG CAPSULE PO SCH (21:07)
[2019-09-10] MEDS: DEXAMETHASONE 4 MG TABLET PO SCH ×4 (05:10→23:45)
[2019-09-10] MEDS: PANTOPRAZOLE SODIUM 40 MG TABLET.DR PO SCH (05:10)
[2019-09-10 05:28] LABS: HEMATOCRIT 33.2 % (36.0-47.0); MEAN CORPUSCULAR HGB CONC 34.1 g/dL (32.0-36.0); MEAN CORPUSCULAR VOLUME 94 fl (80-97); RED BLOOD COUNT 3.53 10^6/uL (3.72-5.28); RED CELL DISTRIBUTION WIDTH 20.9 % (11.5-14.0); WHITE BLOOD COUNT 7.5 10^3/uL (4.0-10.5)
[2019-09-10 05:41] LABS: HEMOGLOBIN 11.3 g/dL (12.0-15.5)
[2019-09-10 05:42] LABS: PLATELET COUNT 49 10^3/uL (150-450)
[2019-09-10 05:54] LABS: ABSOLUTE LYMPHOCYTES# (MANUAL) 0.2 10^3/uL (0.5-4.7); ABSOLUTE MONOCYTES # (MANUAL) 0.3 10^3/uL (0.1-1.4); BAND NEUTROPHILS % (MANUAL) 3 % (3-5); BASOPHILS % (MANUAL) 0 % (0-2); EOSINOPHILS % (MANUAL) 0 % (0-6); LYMPHOCYTES % (MANUAL) 3 % (13-45); MONOCYTES % (MANUAL) 4 % (3-13); POLYCHROMASIA 1+; SEGMENTED NEUTROPHILS % (MAN) 90 % (42-78); TOTAL CELLS COUNTED 100
[2019-09-10 05:55] LABS: ANISOCYTOSIS 2+; BURR CELLS 1+; PLATELET COMMENT DECREASED
[2019-09-10] MEDS: INSULIN LISPRO 100 UNIT/ML 3 ML VIAL SUBCUT SCH ×6 (07:52→16:45)
[2019-09-10] MEDS: LISINOPRIL 5 MG TABLET PO SCH (07:53)
[2019-09-10] MEDS: GABAPENTIN 300 MG CAPSULE PO SCH ×2 (09:13→21:18)
[2019-09-10] MEDS: DOCUSATE SODIUM 100 MG CAPSULE PO SCH ×2 (09:13→17:53)
[2019-09-10] MEDS: FAMOTIDINE 20 MG TABLET PO SCH ×2 (09:15→17:53)
[2019-09-10] MEDS: INSULIN GLARGINE,HUM.REC.ANLOG 1,000 UNIT/10 ML VIAL SUBCUT SCH ×2 (14:06→21:18)
--- NOTE | 2019-09-10 16:26 | PDOC PROGRESS REPORT ---
Subjective Progress Note for:: 09/10/19 Subjective:: No adverse events overnight. No new complaints. She confirmed that she is a DNR and wanted to make sure she had a durable DNR signed for whenever she went home. She wondered if she could switch her diet because she was craving a cheeseburger. Reason For Visit: BREAST CA W METS AMS Physical Exam Vital Signs: Temp Pulse Resp BP Pulse Ox 97.8 F 82 17 158/73 H 98 09/10/19 11:22 09/10/19 14:00 09/10/19 11:22 09/10/19 11:22 09/10/19 11:22 Intake & Output 09/09/19 09/10/19 09/11/19 06:59 06:59 06:59 Intake Total 2928 2320 480 Balance 2928 2320 480 Weight 66 kg 65.7 kg General appearance: PRESENT: cooperative, disheveled, thin, well-developed, other - Chronically ill-appearing with temporal wasting and cachexia Respiratory exam: PRESENT: decreased breath sounds, symmetrical, tachypnea Cardiovascular exam: PRESENT: RRR, tachycardia. ABSENT: diastolic murmur, rubs, systolic murmur Vascular exam: PRESENT: normal capillary refill GI/Abdominal exam: PRESENT: normal bowel sounds, soft. ABSENT: distended, guarding, mass, organolmegaly, rebound, tenderness Rectal exam: PRESENT: deferred Extremities exam: PRESENT: full ROM. ABSENT: calf tenderness, clubbing, pedal edema Neurological exam: PRESENT: alert, altered, awake, oriented to person, oriented to place, oriented to time, oriented to situation Psychiatric exam: PRESENT: appropriate affect, normal mood Skin exam: PRESENT: dry, intact, warm Results Laboratory Results: 09/10/19 05:06 09/08/19 04:02 09/10/19 05:06 WBC 7.5 RBC 3.53 L Hgb 11.3 L D Hct 33.2 L MCV 94 MCH 32.0 MCHC 34.1 RDW 20.9 H Plt Count 49 L Seg Neutrophils % Not Reportable 09/06/19 21:50 Troponin I 0.016 Impressions: Head CT 09/06/19 21:14 IMPRESSION: No acute intracranial abnormality. Specifically, pre-existing vasogenic edema about the left posterior frontal lobe appears similar to the previous CT dated 08/31/2019, previously found to represent sequela of a metastatic focus. Mild chronic microvascular ischemic change with generalized atrophy. Focal lucent lesion located within the left frontal calvarium was previously found to represent a metastatic focus on the previous MR dated 07/24/2019. TECHNICAL DOCUMENTATION: Quality ID # [id number]: Final reports with documentation of one or more dose reduction techniques (e.g., Automated exposure control, adjustment of the mA and/or kV according to patient size, use of iterative reconstruction technique) copyright 2011 [employer]- All Rights Reserved Chest X-Ray 09/06/19 21:15 IMPRESSION: There are no acute lung parenchymal findings. Note, if there is concern for metastatic process, CT may be considered as a more sensitive evaluation. Assessment and Plan - Diagnosis (1) Breast cancer metastasized to brain Qualifiers: Laterality: right Qualified Code(s): C50.911 - Malignant neoplasm of unspecified site of right female breast; C79.31 - Secondary malignant neoplasm of brain Is this a current diagnosis for this admission?: Yes Plan: She is on Decadron. She has decided to go with hospice. Case management has been consulted. Her daughter is on her way in from out of town and we are waiting for her to get home so the patient will have someone with her at home. (2) Dehydration Is this a current diagnosis for this admission?: Yes Plan: Improved with IV fluids. - Time Time Spent with patient: 15-24 minutes
[2019-09-11] MEDS: PANTOPRAZOLE SODIUM 40 MG TABLET.DR PO SCH (05:39)
[2019-09-11] MEDS: DEXAMETHASONE 4 MG TABLET PO SCH ×2 (05:39→12:10)
[2019-09-11] MEDS: INSULIN LISPRO 100 UNIT/ML 3 ML VIAL SUBCUT SCH ×4 (07:28→12:10)
--- NOTE | 2019-09-11 07:37 | PDOC PROGRESS REPORT ---
Subjective Progress Note for:: 09/11/19 Subjective:: Reviewed notes from discharge planning, they are going to meet with the daughter this morning to discuss home hospice Reason For Visit: BREAST CA W METS AMS Physical Exam Vital Signs: Temp Pulse Resp BP Pulse Ox 97.9 F 60 18 153/73 H 96 09/11/19 00:00 09/11/19 02:00 09/11/19 00:00 09/11/19 00:00 09/11/19 00:00 Intake & Output 09/10/19 09/11/19 09/12/19 06:59 06:59 06:59 Intake Total 2320 1020 Balance 2320 1020 Weight 65.7 kg 67.3 kg General appearance: PRESENT: no acute distress, well-developed, well-nourished Head exam: PRESENT: atraumatic, normocephalic Eye exam: PRESENT: conjunctiva pink, EOMI, PERRLA. ABSENT: scleral icterus Ear exam: PRESENT: normal external ear exam Mouth exam: PRESENT: moist, tongue midline Neck exam: ABSENT: carotid bruit, JVD, lymphadenopathy, thyromegaly Respiratory exam: PRESENT: clear to auscultation debbie. ABSENT: rales, rhonchi, wheezes Cardiovascular exam: PRESENT: RRR. ABSENT: diastolic murmur, rubs, systolic murmur Pulses: PRESENT: normal dorsalis pedis pul Vascular exam: PRESENT: normal capillary refill GI/Abdominal exam: PRESENT: normal bowel sounds, soft. ABSENT: distended, guarding, mass, organolmegaly, rebound, tenderness Rectal exam: PRESENT: deferred Extremities exam: PRESENT: full ROM. ABSENT: calf tenderness, clubbing, pedal edema Neurological exam: PRESENT: alert, awake, oriented to person, oriented to place, oriented to time, oriented to situation, CN II-XII grossly intact. ABSENT: motor sensory deficit Psychiatric exam: PRESENT: appropriate affect, normal mood. ABSENT: homicidal ideation, suicidal ideation Skin exam: PRESENT: dry, intact, warm. ABSENT: cyanosis, rash Results Laboratory Results: 09/10/19 05:06 09/08/19 04:02 09/06/19 21:50 Troponin I 0.016 Impressions: Head CT 09/06/19 21:14 IMPRESSION: No acute intracranial abnormality. Specifically, pre-existing vasogenic edema about the left posterior frontal lobe appears similar to the previous CT dated 08/31/2019, previously found to represent sequela of a metastatic focus. Mild chronic microvascular ischemic change with generalized atrophy. Focal lucent lesion located within the left frontal calvarium was previously found to represent a metastatic focus on the previous MR dated 07/24/2019. TECHNICAL DOCUMENTATION: Quality ID # [id number]: Final reports with documentation of one or more dose reduction techniques (e.g., Automated exposure control, adjustment of the mA and/or kV according to patient size, use of iterative reconstruction technique) copyright 2011 [employer]- All Rights Reserved Chest X-Ray 09/06/19 21:15 IMPRESSION: There are no acute lung parenchymal findings. Note, if there is concern for metastatic process, CT may be considered as a more sensitive evaluation. Assessment & Plan - Diagnosis (1) Breast cancer metastasized to brain Qualifiers: Laterality: right Qualified Code(s): C50.911 - Malignant neoplasm of unspecified site of right female breast; C79.31 - Secondary malignant neoplasm of brain Is this a current diagnosis for this admission?: Yes Plan: No further treatment plan for now, patient will need to continue on oral steroids, hopeful home hospice will be set up soon (2) Secondary malignant melanoma of brain Is this a current diagnosis for this admission?: Yes Plan: continue with steroids (3) Anemia Qualifiers: Anemia type: bone marrow failure Bone marrow failure anemia type: pancytopenia, antineoplastic chemotherapy-induced Qualified Code(s): D61.810 - Antineoplastic chemotherapy induced pancytopenia; T45.1X5A - Adverse effect of antineoplastic and immunosuppressive drugs, initial encounter Is this a current diagnosis for this admission?: Yes Plan: Hemoglobin improved post transfusion (4) Thrombocytopenia Is this a current diagnosis for this admission?: Yes Plan: Platelet count stable (5) Dehydration Is this a current diagnosis for this admission?: Yes Plan: Improved patient eating well now - Time Time Spent with patient: 15-24 minutes
[2019-09-11] MEDS: GABAPENTIN 300 MG CAPSULE PO SCH (09:48)
[2019-09-11] MEDS: DOCUSATE SODIUM 100 MG CAPSULE PO SCH (09:48)
[2019-09-11] MEDS: LISINOPRIL 5 MG TABLET PO SCH (09:48)
[2019-09-11] MEDS: FAMOTIDINE 20 MG TABLET PO SCH (09:48)
[2019-09-11] MEDS: INSULIN GLARGINE,HUM.REC.ANLOG 1,000 UNIT/10 ML VIAL SUBCUT SCH (09:49)
[2019-09-11 11:41] VITALS: BP 157/72
--- NOTE | 2019-09-11 12:53 | PDOC DISCHARGE SUMMARY ---
Impression - Admit/DC Date/PCP Admission Date/Primary Care Provider: 09/07/19 00:47 ARASH SAMUELS NP Discharge Date: 09/11/19 - Discharge Diagnosis (1) Breast cancer metastasized to brain Is this a current diagnosis for this admission?: Yes (2) Dehydration Is this a current diagnosis for this admission?: Yes - Additional Information Resuscitation Status: Do Not Resuscitate Discharge Diet: As Tolerated Discharge Activity: Activity As Tolerated, Balance Activity w/Rest, No Driving Referrals: community,hospice [Other] Prescriptions: Diazepam [Valium 2 mg Tablet] 2 mg PO Q6HP PRN #20 tablet PRN Reason: Home Medications: Gabapentin [Neurontin 300 mg Capsule] 300 mg PO BID 07/25/19 Lisinopril [Zestril] 5 mg PO QAM 07/25/19 Omeprazole 40 mg PO QAM 07/25/19 Ranitidine HCl [Zantac] 150 mg PO BID 07/25/19 Insulin Detemir [Levemir] 80 units SQ BID 08/31/19 Dexamethasone [Decadron 4 mg Tablet] 4 mg PO Q6 #30 tablet 09/05/19 Insulin Aspart [Novolog Flexpen] 0 units SQ .SLIDINGSCALE 09/07/19 Diazepam [Valium 2 mg Tablet] 2 mg PO Q6HP PRN #20 tablet 09/11/19 History of Present Illiness History of Present Illness: KIM CROSS is a 78 year old female with a past medical history of 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 Patient was discharged from acute care August 30 home alone with Decadron for newly diagnosed brain met. She returns with debility unable to walk, fatigue and disorientation. Patient admits missing several Decadron doses. Her work-up is unremarkable from previous her oncologist Dr. Tahmina velasquez recommends hospitalization. She is referred to the hospitalist for admission after receiving IV Decadron. Hospital Course Hospital Course: For whatever reason, when she went home she did not take her steroids. I put her back on some Decadron here and she had improvement. She had a discussion with Dr. Ocampo and she decided to go home on hospice. She waited here until her daughter got here from out of town so that she would have someone at home with her for a little while. The appropriate arrangements were made and she was discharged home on hospice. Physical Exam Vital Signs: Temp Pulse Resp BP Pulse Ox 98.0 F 90 16 157/72 H 96 09/11/19 11:56 09/11/19 11:56 09/11/19 11:56 09/11/19 11:56 09/11/19 11:56 Intake & Output 09/10/19 09/11/19 09/12/19 06:59 06:59 06:59 Intake Total 2320 1020 Balance 2320 1020 Weight 65.7 kg 67.3 kg General appearance: PRESENT: cooperative, disheveled, thin, well-developed, other - Chronically ill-appearing with temporal wasting and cachexia Respiratory exam: PRESENT: decreased breath sounds, symmetrical, tachypnea Cardiovascular exam: PRESENT: RRR, tachycardia. ABSENT: diastolic murmur, rubs, systolic murmur Vascular exam: PRESENT: normal capillary refill GI/Abdominal exam: PRESENT: normal bowel sounds, soft. ABSENT: distended, guarding, mass, organolmegaly, rebound, tenderness Rectal exam: PRESENT: deferred Extremities exam: PRESENT: full ROM. ABSENT: calf tenderness, clubbing, pedal edema Neurological exam: PRESENT: alert, altered, awake, oriented to person, oriented to place, oriented to time, oriented to situation Psychiatric exam: PRESENT: appropriate affect, normal mood Skin exam: PRESENT: dry, intact, warm Results Laboratory Results: WBC 7.5 10^3/uL (4.0-10.5) 09/10/19 05:06 RBC 3.53 10^6/uL (3.72-5.28) L 09/10/19 05:06 Hgb 11.3 g/dL (12.0-15.5) L D 09/10/19 05:06 Hct 33.2 % (36.0-47.0) L 09/10/19 05:06 MCV 94 fl (80-97) 09/10/19 05:06 MCH 32.0 pg (27.0-33.4) 09/10/19 05:06 MCHC 34.1 g/dL (32.0-36.0) 09/10/19 05:06 RDW 20.9 % (11.5-14.0) H 09/10/19 05:06 Plt Count 49 10^3/uL (150-450) L 09/10/19 05:06 Lymph % (Auto) Not Reportable 09/10/19 05:06 [place] % (Auto) Not Reportable 09/10/19 05:06 Eos % (Auto) Not Reportable 09/10/19 05:06 Baso % (Auto) Not Reportable 09/10/19 05:06 Absolute Neuts (auto) Not Reportable 09/10/19 05:06 Absolute Lymphs (auto) Not Reportable 09/10/19 05:06 Absolute Monos (auto) Not Reportable 09/10/19 05:06 Absolute Eos (auto) Not Reportable 09/10/19 05:06 Absolute Basos (auto) Not Reportable 09/10/19 05:06 Total Counted 100 09/10/19 05:06 Seg Neutrophils % Not Reportable 09/10/19 05:06 Seg Neuts % (Manual) 90 % (42-78) H 09/10/19 05:06 Band Neutrophils % 3 % (3-5) 09/10/19 05:06 Lymphocytes % (Manual) 3 % (13-45) L 09/10/19 05:06 Monocytes % (Manual) 4 % (3-13) 09/10/19 05:06 Eosinophils % (Manual) 0 % (0-6) 09/10/19 05:06 Basophils % (Manual) 0 % (0-2) 09/10/19 05:06 Abs Neuts (Manual) 7.0 10^3/uL (1.7-8.2) 09/10/19 05:06 Abs Lymphs (Manual) 0.2 10^3/uL (0.5-4.7) L 09/10/19 05:06 Abs Monocytes (Manual) 0.3 10^3/uL (0.1-1.4) 09/10/19 05:06 Absolute Eos (Manual) 0.0 10^3/uL (0.0-0.6) 09/10/19 05:06 Abs Basophils (Manual) 0.0 10^3/uL (0.0-0.2) 09/10/19 05:06 Platelet Comment DECREASED 09/10/19 05:06 Polychromasia 1+ 09/10/19 05:06 Anisocytosis 2+ 09/10/19 05:06 Macrocytosis SLIGHT 09/06/19 21:50 Viola Cells 1+ 09/10/19 05:06 PT 16.2 SEC (11.4-15.4) H 09/06/19 21:50 INR 1.29 09/06/19 21:50 VBG pH 7.50 (7.30-7.42) H 09/06/19 21:50 VBG pCO2 41.5 mmHg (35-63) 09/06/19 21:50 VBG HCO3 31.5 mmol/L (20-32) 09/06/19 21:50 VBG Base Excess 7.6 mmol/L 09/06/19 21:50 Sodium 135.9 mmol/L (137-145) L 09/08/19 04:02 Potassium 3.9 mmol/L (3.6-5.0) 09/08/19 04:02 Chloride 101 mmol/L (98-107) 09/08/19 04:02 Carbon Dioxide 28 mmol/L (22-30) 09/08/19 04:02 Anion Gap 7 (5-19) 09/08/19 04:02 BUN 23 mg/dL (7-20) H 09/08/19 04:02 Creatinine 0.62 mg/dL (0.52-1.25) 09/08/19 04:02 Est GFR ( Amer) > 60 (>60) 09/08/19 04:02 Est GFR (MDRD) Non-Af > 60 (>60) 09/08/19 04:02 Glucose 216 mg/dL (75-110) H 09/08/19 04:02 POC Glucose 242 mg/dL (70-110) H 09/11/19 10:58 Lactic Acid 1.7 mmol/L (0.7-2.1) 09/06/19 21:50 Calcium 7.9 mg/dL (8.4-10.2) L 09/08/19 04:02 Magnesium 2.3 mg/dL (1.6-2.3) 09/06/19 21:50 Total Bilirubin 0.9 mg/dL (0.2-1.3) 09/06/19 21:50 Direct Bilirubin 0.5 mg/dL (0.0-0.4) H 09/06/19 21:50 Neonat Total Bilirubin Not Reportable 09/06/19 21:50 Neonat Direct Bilirubin Not Reportable 09/06/19 21:50 Neonat Indirect Bili Not Reportable 09/06/19 21:50 AST 108 U/L (14-36) H 09/06/19 21:50 ALT 28 U/L (<35) 09/06/19 21:50 Alkaline Phosphatase 127 U/L (38-126) H 09/06/19 21:50 Troponin I 0.016 ng/mL 09/06/19 21:50 Total Protein 5.4 g/dL (6.3-8.2) L 09/06/19 21:50 Albumin 2.6 g/dL (3.5-5.0) L 09/06/19 21:50 Random Cortisol 19.70 ug/dL (None Established) 09/06/19 21:50 Urine Color YELLOW 09/06/19 22:58 Urine Appearance CLEAR 09/06/19 22:58 Urine pH 6.0 (5.0-9.0) 09/06/19 22:58 Ur Specific [place] 1.006 09/06/19 22:58 Urine Protein NEGATIVE mg/dL (NEGATIVE) 09/06/19 22:58 Urine Glucose (UA) NEGATIVE mg/dL (NEGATIVE) 09/06/19 22:58 Urine Ketones NEGATIVE mg/dL (NEGATIVE) 09/06/19 22:58 Urine Blood NEGATIVE (NEGATIVE) 09/06/19 22:58 Urine Nitrite (Reflex) NEGATIVE (NEGATIVE) 09/06/19 22:58 Urine Bilirubin NEGATIVE (NEGATIVE) 09/06/19 22:58 Urine Urobilinogen NEGATIVE mg/dL (<2.0) 09/06/19 22:58 Leukocyte Esterase Rfl NEGATIVE (NEGATIVE) 09/06/19 22:58 Urine RBC NONE SEEN /HPF 09/06/19 22:58 Urine WBC NONE SEEN /HPF 09/06/19 22:58 Urine Bacteria TRACE /HPF 09/06/19 22:58 Urine Mucus 2+ 09/06/19 22:58 Urine Ascorbic Acid NEGATIVE (NEGATIVE) 09/06/19 22:58 Urine Opiates Screen NEGATIVE 09/06/19 22:58 Urine Methadone Screen NEGATIVE 09/06/19 22:58 Ur Barbiturates Screen NEGATIVE 09/06/19 22:58 Ur Phencyclidine Scrn NEGATIVE 09/06/19 22:58 Ur Amphetamines Screen NEGATIVE 09/06/19 22:58 U Benzodiazepines Scrn NEGATIVE 09/06/19 22:58 Urine Cocaine Screen NEGATIVE 09/06/19 22:58 U Marijuana (THC) Screen NEGATIVE 09/06/19 22:58 Blood Type A POSITIVE 09/08/19 08:17 Antibody Screen NEGATIVE 09/08/19 08:17 Crossmatch See Detail 09/08/19 08:17 09/06/19 21:50 Troponin I 0.016 Impressions: Head CT 09/06/19 21:14 IMPRESSION: No acute intracranial abnormality. Specifically, pre-existing vasogenic edema about the left posterior frontal lobe appears similar to the previous CT dated 08/31/2019, previously found to represent sequela of a metastatic focus. Mild chronic microvascular ischemic change with generalized atrophy. Focal lucent lesion located within the left frontal calvarium was previously found to represent a metastatic focus on the previous MR dated 07/24/2019. TECHNICAL DOCUMENTATION: Quality ID # [id number]: Final reports with documentation of one or more dose reduction techniques (e.g., Automated exposure control, adjustment of the mA and/or kV according to patient size, use of iterative reconstruction technique) copyright 2011 [employer]- All Rights Reserved Chest X-Ray 09/06/19 21:15 IMPRESSION: There are no acute lung parenchymal findings. Note, if there is concern for metastatic process, CT may be considered as a more sensitive evaluation. Plan Time Spent: Greater than 30 Minutes Stroke Is this a Stroke Patient?: No Acute Heart Failure - Is this a Heart Failure Patient?: No
== END 2019-09-11 13:30 | disposition hospice, home (50) | DRG 597 ==
LOC: ER 19:11 → EH 09-07 00:47 → 4W 09-07 08:29 → 4N 09-08 15:18
PROVIDERS: ADMIT Internal Medicine; ATTEND Family Medicine
PROC: 30233N1 Transfusion of Nonautologous Red Blood Cells into Peripheral Vein, Percutaneous Approach (ICD-10-PCS; principal; 2019-09-08)
DX: C50.919 Malignant neoplasm of unspecified site of unspecified female breast (principal); D61.810 Antineoplastic chemotherapy induced pancytopenia; E87.1 Hypo-osmolality and hyponatremia; C79.51 Secondary malignant neoplasm of bone; C79.31 Secondary malignant neoplasm of brain; Z66 Do not resuscitate; E86.0 Dehydration; D64.9 Anemia, unspecified; D69.6 Thrombocytopenia, unspecified; T45.1X5A Adverse effect of antineoplastic and immunosuppressive drugs, initial encounter; I10 Essential (primary) hypertension; E11.8 Type 2 diabetes mellitus with unspecified complications; F44.89 Other dissociative and conversion disorders; F41.9 Anxiety disorder, unspecified; Z88.0 Allergy status to penicillin; Z91.030 Bee allergy status; Z91.040 Latex allergy status; Z60.2 Problems related to living alone
CPT/HCPCS: 36415; 36430; 70450; 71045; 80048; 80053; 80307; 81001; 82533; 82803; 82962; 83605; 83735; 84484; 85025; 85027; 85610; 86850; 86900; 86901; 86920; 87040; 93005; 93010; 96374; 99285; J1100; J1644; J1815; J3490; J7030; J8540; P9016